=== PATIENT | female | born 1960 | race Caucasian/White ===

== ENCOUNTER 2022-10-08 11:08 | Outpatient (OUT) | payer OTHER, SELFPAY ==
[2022-10-08 11:46] LABS: Basophils Percent Auto 0.7 % (0.2-2.0); Eosinophils Absolute Auto 0.1 10^3/uL (0.0-0.7); Eosinophils Percent Auto 2.5 % (0.9-7.0); Hematocrit 44.9 % (36.0-48.0); Hemoglobin 14.6 g/dL (12.0-16.0); Immature Granulocytes Abs Auto 0.01 10^3/uL (0.00-0.03); Immature Granulocytes Pct Auto 0.2 % (0.0-0.5); Lymphocytes Absolute Auto 1.9 10^3/uL (1.2-3.8); Lymphocytes Percent Auto 33.4 % (20.5-60.0); Mean Corpuscular HGB Conc 32.5 g/dL (29.9-35.2); Mean Corpuscular Hemoglobin 28.6 pg (26.7-34.0); Mean Platelet Volume 9.8 fL (9.5-13.5); Monocytes Absolute Auto 0.4 10^3/uL (0.3-0.8); Monocytes Percent Auto 7.4 % (1.7-12.0); Neutrophils Absolute Auto 3.1 10^3/uL (1.4-6.5); Neutrophils Percent Auto 55.8 % (43.0-75.0); Platelet Count 334 10^3/uL (150-450); Red Cell Distribution Width 13.7 % (11.0-15.0); White Blood Count 5.5 10^3/uL (4.0-11.0)
[2022-10-08 11:47] LABS: Estimated Average Glucose 117 mg/dL; Glycohemoglobin A1C 5.7 % (4.5-6.2)
[2022-10-08 12:14] LABS: Alanine Aminotransferase 36 U/L (14-59); Albumin Globulin Ratio 0.9; Albumin Level 3.3 g/dL (3.4-5.0); Alkaline Phosphatase 111 U/L (46-116); Anion Gap 8.8; Aspartate Amino Transferase 19 U/L (15-37); BUN Creatinine Ratio 22.5; Bilirubin Total 0.7 mg/dL (0.2-1.0); Carbon Dioxide 31.1 mmol/L (21.0-32.0); Chloride 104 mmol/L (98-107); Estimated GFR (African America >60 (>=60); Estimated GFR (Non-African Ame >60 (>=60); Globulin 3.7 g/dL; Glucose 102 mg/dL (74-106); Potassium 3.9 mmol/L (3.5-5.1); Sodium 140 mmol/L (136-145)
[2022-10-08 12:23] LABS: Chol HDL Ratio 3.9; Cholesterol 188 mg/dL (<=200); Free Thyroxine Index 3.06 (1.30-4.50); HDL Cholesterol 48 mg/dL (40-60); LDL Cholesterol Calculated 120.6 mg/dL; Thyroid Stimulating Hormone 2.989 uIU/mL (0.358-3.740); Triglycerides 97 mg/dL (<=150); VLDL CHOLESTEROL 19.4 mg/dL
[2022-10-09 11:08] LABS: Insulin 8.6 uIU/mL (2.6-24.9)
== END 2022-10-08 11:09 ==
LOC: LAB 11:12
PROVIDERS: PCP Family Medicine; Visit Provider Family Medicine
DX: Z00.00 Encounter for general adult medical examination without abnormal findings (principal)
CPT/HCPCS: 36415; 80053; 80061; 82306; 83036; 83525; 83540; 84436; 84443; 84479; 85025

== ENCOUNTER 2022-10-17 14:32 | Outpatient (OUT) | payer OTHER, SELFPAY ==
[2022-10-17 15:03] LABS: Bilirubin Urine NEGATIVE (NEGATIVE); Blood Urine NEGATIVE (NEGATIVE); Clarity Urine CLEAR (CLEAR); Color Urine YELLOW (YELLOW); Glucose Urine UA NEGATIVE (NEGATIVE); Ketones Urine TRACE mg/dL (NEGATIVE); Leukocyte Esterase Urine NEGATIVE (NEGATIVE); Nitrite Urine NEGATIVE (NEGATIVE); Protein Urine NEGATIVE (NEG/TRACE); Specific Gravity Urine 1.025 (1.005-1.025); Urobilinogen Urine 0.2 EU/dL (0.2-1.0)
[2022-10-17 15:04] LABS: Basophils Absolute Auto 0.1 10^3/uL (0.0-0.1); Basophils Percent Auto 0.8 % (0.2-2.0); Eosinophils Absolute Auto 0.2 10^3/uL (0.0-0.7); Eosinophils Percent Auto 3.7 % (0.9-7.0); Hematocrit 45.4 % (36.0-48.0); Hemoglobin 14.7 g/dL (12.0-16.0); Immature Granulocytes Abs Auto 0.01 10^3/uL (0.00-0.03); Immature Granulocytes Pct Auto 0.2 % (0.0-0.5); Lymphocytes Absolute Auto 2.1 10^3/uL (1.2-3.8); Lymphocytes Percent Auto 33.8 % (20.5-60.0); Mean Corpuscular HGB Conc 32.4 g/dL (29.9-35.2); Mean Corpuscular Hemoglobin 28.4 pg (26.7-34.0); Mean Corpuscular Volume 87.6 fL (81.0-99.0); Mean Platelet Volume 9.8 fL (9.5-13.5); Monocytes Absolute Auto 0.6 10^3/uL (0.3-0.8); Monocytes Percent Auto 9.7 % (1.7-12.0); Neutrophils Absolute Auto 3.2 10^3/uL (1.4-6.5); Neutrophils Percent Auto 51.8 % (43.0-75.0); Platelet Count 301 10^3/uL (150-450); Red Blood Count 5.18 10^6/uL (4.20-5.40); Red Cell Distribution Width 13.4 % (11.0-15.0); White Blood Count 6.2 10^3/uL (4.0-11.0)
[2022-10-17 15:25] LABS: Alanine Aminotransferase 36 U/L (14-59); Albumin Globulin Ratio 0.9; Albumin Level 3.4 g/dL (3.4-5.0); Alkaline Phosphatase 104 U/L (46-116); Amylase 34 U/L (25-115); Aspartate Amino Transferase 23 U/L (15-37); BUN Creatinine Ratio 21.4; Bilirubin Total 0.5 mg/dL (0.2-1.0); Calcium 8.9 mg/dL (8.5-10.1); Carbon Dioxide 28.8 mmol/L (21.0-32.0); Chloride 103 mmol/L (98-107); Estimated GFR (African America >60 (>=60); Estimated GFR (Non-African Ame >60 (>=60); Glucose 88 mg/dL (74-106); Potassium 3.8 mmol/L (3.5-5.1); Sodium 138 mmol/L (136-145); Total Protein 7.4 g/dL (6.4-8.2)
[2022-10-17 16:22] LABS: Amorphous Sediment Urine RARE; Bacteria Urine TRACE #/HPF (NONE SEEN); Cast Seen? NONE SEEN #/LPF (NONE SEEN); Crystals Seen? None Seen #/HPF (None Seen); Mucus Urine NONE SEEN (NONE SEEN); RBC Urine 0-2 #/HPF (0-2); Squamous Epithelial Cell Urine RARE #/LPF (NONE/RARE); WBC Urine NONE SEEN #/HPF (NONE SEEN)
== END 2022-10-17 14:33 | disposition home or self-care (01) ==
LOC: LAB 14:33
PROVIDERS: PCP Family Medicine; Visit Provider Family Medicine
DX: R10.9 Unspecified abdominal pain (principal)
CPT/HCPCS: 36415; 80053; 81001; 82150; 83690; 85025; 87086

== ENCOUNTER 2023-06-17 20:53 | Outpatient (OUT) | payer OTHER, SELFPAY | END 2023-06-17 20:54 | disposition home or self-care (01) | LOC: SLEEP 20:53 | PROVIDERS: PCP Family Medicine; Visit Provider Family Medicine | DX: G47.33 Obstructive sleep apnea (adult) (pediatric) (principal); R06.83 Snoring | CPT/HCPCS: 95810 ==

== ENCOUNTER 2023-07-22 19:54 | Outpatient (OUT) | payer OTHER, SELFPAY ==
--- OUTSIDE RECORDS SUMMARY | 2023-07-22 19:56 | XMS_ITS | CCD ---
Author Organization [facility] Care Team Providers Care External Grinder Tender Name Role Phone PHYSICIAN, DEFAULT Unavailable Unavailable PHYSICIAN, DEFAULT Unavailable Unavailable ANEL ROBB Attending Unavailable MABEL GALVAN Referring Unavailable PRISCILLA CHACON Referring Unavail able MABEL GALVAN Primary Care Unavailable WILL TINOCO Referring Unavailabl e GALVAN, MABEL Primary Care Unavailable WILL TINOCO Referring Unavailabl e GALVAN, MABEL Primary Care Unavailable Mabel Galvan Primary Care Provider Andie Leger Unavailable DR GINNY SIMEON Consulting Unavailable HOY ., DR GROSS Primary Care Unavailable HOY ., DR GROSS Admitting Unavailable HOY ., DR GROSS Attending Unavailable ZIEBER, DR STEVENSON Babb Consulting Unavailable HOY ., DR GROSS Consulting Unavailable HOY ., DR GROSS Primary Care Unavailable HOY ., DR GROSS Admitting Unavailable HOY ., DR GROSS Attending Unavailable ZIEBER, DR STEVENSON Babb Consulting Unavailable HOY ., DR GROSS Consulting Unavailable HOY ., DR GROSS Primary Care Unavailable HOY ., DR GROSS Admitting Unavailable HOY ., DR GROSS Attending Unavailable ZIEBER, DR STEVENSON Babb Consulting Unavailable Veronica Crocker Unavailable Nidhi Croft Unavailable Allergies Allergy Classification Reported Allergen(s) Allergy Type Date of Onset Reaction(s) Facility (1 source) Penicillin; Translations: [PENICILLIN] Drug Allergy 07-25-19 18 [facility] (2 sources) Penicillins Propensity to adverse reactions to drug 12-07-19 17 Rash [place], [place] (7 sources) Sulfamethoxazole / Trimethoprim Drug Allergy 02-19-20 17 Nausea And Vomiting [facility] [place], [place] (7 sources) Penicillin G Drug Allergy 07-11-19 24 hives [place] (1 source) Penicillins Drug allergy (disorder) 10-17-19 16 [facility] Repository (2 sources) Cephalexin Drug Allergy rash Splother Other (1 source) Cephalexin Drug Allergy 07-11-19 24 rash [place] (1 source) Sulfamethoxazole Drug Allergy 07-11-19 24 nausea and vomiting [place] (1 source) Trimethoprim Drug Allergy 07-11-19 24 nausea and vomiting [place] Medications Current Medications Medication Drug Class(es) Dates Sig (Normalized) Sig (Original) [id number] 200 actuat albuterol 0.09 mg/actuat metered dose inhaler (9 sources) beta2-Adrenergic Agonist Start: 11-03-2022 take 2 puff(s) by inhalation four times daily as needed Albuterol Sulfate HFA 108 (90 Base) MCG/ACT 2 puffs Inhalation 4 times a day prn Oct, Active Start: 11-03-2022 take 2 puff(s) by in halation four times daily as needed Albuterol Sulfate HFA 108 (90 Base) MCG/ACT 2 puffs Inhalation 4 times a day prn Oct, Not-Taking Start: 07-07-2021 Start: 07-07-2021 take 2 puff(s) by in halation every four hours as needed Albuterol Sulfate HFA 108 (90 Base) MCG/ACT 2 puffs as needed Inhalation every 4 hrs Jun, Not-Taking Start: 07-07-2021 take 2 puff(s) by in halation every four hours as needed Albuterol Sulfate HFA 108 (90 Base) MCG/ACT 2 puffs as needed Inhalation every 4 hrs Jun, Not-Taking azithromycin 250 mg oral tablet (7 sources) Macrolide Antimicrobial Start: 07-11-2023 take 2 tablets by mouth once daily, then take 1 tablet by mouth once daily Azithromycin (Zithromax Z-Chan) 250 mg tablet Active 250 MG PO Daily 09 30July 11, 2023 12:00am take 2 tabs today and 1 daily for the next 4 days Start: 09-09-2022 Azithromycin 2 50 MG 2 tablet on first day, 1 tablet daily for 4 days Orally daily for 5 days Oct, Not-Taking Start: 09-09-2022 cyproheptadine hydrochloride 4 mg oral tablet (7 sources) Start: 07-11-2023 take 4 mg by mouth once daily at bedtime Cyproheptadine Active 4 MG PO Daily at bedtime July 11, 2023 12:00am Cyproheptadine H Cl Active fluticasone propionate 0.05 mg/actuat metered dose nasal spray (1 source) Corticosteroid Start: 02-03-2023 take 2 spray(s) nasal route once daily Fluticasone Propionate 50 MCG/ACT 2 sprays Nasally Once a day for 14 day(s) Jan, Active 24 hr metoprolol succinate 25 mg extended release oral tablet (8 sources) beta-Adrenergic Janice Start: 10-13-2018 take 25 mg by mouth once daily Metoprolol Succinate Active 25 MG PO Daily October 13, 2018 12:00am take 0.5 tablet by m outh once daily at mealtime Metoprolol Tartrate 25 MG 1/2 tablet wit h food Orally Once a day for 30 day(s) Active pantoprazole (7 sources) Proton Pump Inhibitor Start: 07-11-2023 Pantopra zole Active MG PO July 11, 2023 12:00am Pantoprazole Sod ium Active predniSONE 20 mg oral tablet (8 sources) Start: 09-09-2022 take 1 tablet by mouth every twelve hours predniSONE 20 MG 1 tablet Orally bid for 5 day(s) Jan, Active tiZANidine 4 mg oral tablet (8 sources) Central alpha-2 Adrenergic Agonist Start: 07-11-2023 Tizanidine Active 4 MG PO every 6 to 8 hours July 11, 2023 12:00am Start: 12-31-2018 take 1 tablet by whit th once daily tiZANidine (ZANAFLEX) 4 MG tablet Take 4 mg by mouth nightly 1 12/31/2018 Active tiZANidine HCl A ctive Completed/Discontinued Medications Medication Drug Class(es) Dates Sig (Normalized) Sig (Original) acetaminophen 325 mg / HYDROcodone bitartrate 5 mg oral tablet (1 source) Opioid Agonist Start: 10-17-2018 End: 07-11-2023 take 1 tablet by mouth every eight hours Hydrocodone-Acetam inophen ([place]) 5-325 mg tablet Discontinued 1 TAB PO Q8H 10 3 October 17, 2018 July 11, 2023 4:17pm cephalexin 500 mg oral capsule (5 sources) Cephalosporin Antibacterial Start: 11-03-2022 take 1 capsule by mouth every eight hours Cephalexin 500 MG 1 capsule Orally tid for 10 day(s) Oct, Not-Taking Start: 12-31-2018 take 2 capsules by m outh twice daily cephALEXin (KEFLEX) 500 MG capsule TAKE 2 CAPSULES BY MOUTH TWICE A DAY FOR 2 WEEKS 0 12/31/2018 Active Start: 10-17-2018 End: 07-11-2023 take 1 capsule by mouth twice daily Cephalexin (Keflex) 500 mg capsule Discontinued 500 MG PO Twice daily 10 5 October 17, 2018 12:00am July 11, 2023 4:16pm doxycycline monohydrate 100 mg oral capsule (6 sources) Tetracycline-class Drug Start: 07-07-2021 take 1 capsule by mouth every twelve hours Doxycycline Monohydrate 100 MG 1 capsule Orally every 12 hrs for 7 days Jun, Not-Taking famotidine 20 mg oral tablet (1 source) Histamine-2 Receptor Antagonist Start: 10-17-2018 End: 07-11-2023 take 1 tablet by mouth twice daily Famotidine (Pepcid) 20 mg tablet Discontinued 20 MG PO Twice daily October 17, 2018 12:00am July 11, 2023 4:16pm methylPREDNISolone 4 mg oral tablet (6 sources) Corticosteroid Start: 07-07-2021 methylPREDNISolone 4 MG as directed Orally Once a day for 6 days Jun, Not-Taking Triamcinolone (5 sources) Corticosteroid Start: 09-03-2018 KENALOG - 10 mg August, 80 mg Problems Active Problems Problem Classification Problem Date Documented Da te Episodic/Chronic Abdominal pain (6 sources) Abdominal pain; Translations: [Unspecified abdominal pain] Episodic Chronic obstructive pulmonary disease and bronchiectasis (3 sources) Bronchitis, not specified as acute or chronic Onset: 07-07-2021 Resolved: 07-07-2021 Episodic Headache; including migraine (6 sources) New daily persistent headache; Translations: [New daily persistent headache (NDPH)] Chronic Headache; including migraine (1 source) Headache; Translations: [Headache] 04-09-2023 Episodic Menstrual disorders (1 source) Irregular periods; Translations: [Irregular uterine bleeding] Chronic Other aftercare (1 source) Wound ; Translations: [Encounter for other specified surgical aftercare] 04-09-2023 Episodic Other and unspecified benign neoplasm (1 source) Leiomyoma; Translations: [Benign neoplasm of connective and other soft tissue, unspecified] 07-11-2023 Episodic Other circulatory disease (7 sources) Vasculitis; Translations: [Arteritis, unspecified] 07-11-2023 Chronic Other gastrointestinal disorders (6 sources) Swollen abdomen; Translations: [Abdominal distension (gaseous)] Episodic Other nutritional; endocrine; and metabolic disorders (6 sources) Obese class II; Translations: [Body mass index (BMI) 39.0-39.9, adult] Chronic Other nutritional; endocrine; and metabolic disorders (6 sources) Obesity; Translations: [Obesity, unspecified] Chronic Other nutritional; endocrine; and metabolic disorders (1 source) Body mass index 30+ - obesity; Translations: [Obesity, unspecified] 07-11-2023 Chronic Other nutritional; endocrine; and metabolic disorders (6 sources) Weight gain; Translations: [Abnormal weight gain] Episodic Other screening for suspected conditions (not mental disorders or infectious disease) (4 sources) Encounter for screening mammogram for malignant neoplasm of breast; Translations: [ENC SCR MAMMO MALIG NEOPLASM BREAST] Onset: 07-16-2022 Episodic Other upper respiratory infections (1 source) Acute sinusitis, unspecified Episodic Otitis media and related conditions (5 sources) Otitis media, unspecified, right ear; Translations: [Unspecified nonsuppurative otitis media, right ear] Onset: 07-07-2021 Resolved: 07-07-2021 Episodic Residual codes; unclassified (1 source) Family history of malignant neoplasm of breast; Translations: [FAMILY HX MALIG NEOPLASM OF BREAST] Onset: 07-20-2022 Episodic Residual codes; unclassified (1 source) Family history of other malignant neoplasms of lymphoid, hematopoietic and related tissues; Translations: [FAM HX OTH MAL ARACELIS LYMPH HEMATPOETC] Onset: 07-20-2022 Episodic Residual codes; unclassified (1 source) Family history of malignant neoplasm of other organs or systems; Translations: [FAM HX MALIG NEOPLASM OTH ORGN/SYS] Onset: 07-20-2022 Episodic Spondylosis; intervertebral disc disorders; other back problems (1 source) Degeneration of intervertebral disc; Translations: [Degeneration of intervertebral disc] 07-11-2023 Chronic Spondylosis; intervertebral disc disorders; other back problems (4 sources) Radiculopathy, lumbar region; Translations: [RADICULOPATHY LUMBAR REGION] Onset: 07-19-2022 Episodic Systemic lupus erythematosus and connective tissue disorders (7 sources) Temporal arteritis; Translations: [Other giant cell arteritis] 07-11-2023 Chronic Thyroid disorders (7 sources) Subclinical hyperthyroidism; Translations: [Thyrotoxicosis, unspecified without thyrotoxic crisis or storm] 07-11-2023 Chronic Past or Other Problems Problem Classification Problem Date Documented Da te Episodic/Chronic 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; 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 TECHNIQUE: A variety of imaging planes and parameters were utilized for visualization of suspected pathology. FINDINGS: For the purposes of numbering, sagittal T2 image # 8 extends from the T11 vertebral body superiorly to the S3 level inferiorly. PARASPINAL AREA: Benign-appearing right renal cyst. Left kidney is within the pelvis. BONES: No fracture, pars defect, or osseous lesion. CORD/CAUDA EQUINA: Normal caliber, contour, and signal intensity. DISC LEVELS: 12-L1: No significant disc/facet abnormality, spinal stenosis, or foraminal stenosis. L1-L2: No significant disc/facet abnormality, spinal stenosis, or foraminal stenosis. L2-L3: Early degenerative disc disease is present without focal protrusion or neural impingement. L3-L4: Moderate degenerative disc disease is present without visible neural impingement. L4-L5: Mild diffuse disc bulging and mild disc height reduction. No significant central canal or foramen narrowing. Mild degenerative facet arthropathy and ligamentum flavum thickening. L5-S1: Mild left foramen narrowing without significant central canal or right foramen narrowing. Mild diffuse disc bulging and mild degenerative facet arthropathy. IMPRESSION: 1. No specific findings to account for patient's symptoms. 2. L5-S1 mild left foramen narrowing. 2. Mild degenerative disc disease and facet arthropathy. Electronically authenticated by: STEVENSON WATSON Date: 2022-07-19 15:01 Normal [facility] MG MAMM SCREEN 3D JUAN CADon 07-16-2022 MG MAMM SCREEN 3D JUAN CAD Patient: MONET MONTANEZ Exam Date: 07/16/2022 : 1960 Gender:F Ordering : DR GINNY BARNETT . Admission #: [id number] Family : Order #: [id number] CLICK HERE TO VIEW EXAM RADIOLOGY REPORT PROCEDURE: MAMMOGRAM SCREENING 3D BILATERAL CAD COMPARISON: MG MAMM SCREEN 3D JUAN CAD, 12/25/2020. MG MAMM SCREEN JUAN W CAD, 03/23/2019. MG MAMM SCREEN JUAN W CAD, 12/17/2016. DIGITIZED_MAMMO, 11/03/2002. INDICATIONS: Screening mammography Calculator Name NCI Breast Cancer Risk Assessment Tool 5 Year Breast Cancer Risk 0.90% Lifetime Breast Cancer Risk 4.90% Personal Breast Cancer No Personal Ovarian Cancer No Treatments None Family Cancers Aunt-paternal with breast cancer at age 40; Aunt-paternal with breast cancer at age 40; Father with sinus cancer at age 70; Mother with lymohoma cancer at age 58. LOCATION: [facility] BREAST COMPOSITION: Scattered areas fibroglandular density. FINDINGS: DIAGNOSTIC CATEGORY 2--BENIGN FINDING: RIGHT BREAST: No significant suspicious finding. Scattered benign-appearing lymph nodes are present. No significant change has occurred. LEFT BREAST: No significant suspicious finding. Scattered benign-appearing lymph nodes are present. No significant change has occurred. RECOMMENDATIONS: ROUTINE MAMMOGRAM AND CLINICAL EVALUATION IN 12 MONTHS. PLEASE NOTE: A NORMAL MAMMOGRAM DOES NOT EXCLUDE THE POSSIBILITY OF BREAST CANCER. A CLINICALLY SUSPICIOUS PALPABLE LUMP SHOULD BE BIOPSIED. Dictated by: Stevenson Watson M.D. on 07/16/2022 at 16:12 Approved by: Stevenson Watson M.D. on 07/16/2022 at 16:18 Normal [facility] XR LSPINE MIN 4 VIEWSon 03-0 XR LSPINE MIN 4 VIEWS EXAMINATION: XR LSPINE MIN 4 VIEWS HISTORY: Lumbar radiculopathy ; chronic low back pain COMPARISON: XR L-spine 07/09/2016 FINDINGS: BONES: Mild left convex curvature lumbar spine. No fracture, spondylolisthesis, bone lesion. Mild degenerative facet arthropathy L4-L5, L5-S1. DISC SPACES: Moderate narrowing L4-L5, L5-S1. Mild narrowing L3-L4. PARASPINOUS: Negative. No paraspinous abnormality is seen. OTHER: Negative. IMPRESSION: 1. Degenerative disc disease and facet arthropathy of lower lumbar spine; only slightly progressed compared to 2017. Electronically authenticated by: STEVENSON WATSON Date: 2022-07-03 16:36 Normal [facility] Quick Fluon 08-06-2021 FLUAV Ab CF (S) [Titer] Negative Splother Other FLUBV Ab CF (S) [Titer] neagtive [facility] [employer] Other Coding Summary.on 06-23-2019 Coding Summary. CODING DATE: 06/23/2019 [facility] STATUS: Home (Routine DC) PAYOR: [facility] [place] ADMIT DX: REASON FOR VISIT DX: Z09 Encounter for follow-up examination after completed treatment for conditions other than malignant neoplasm FINAL DX: PRINCIPAL: Z09 Encounter for follow-up examination after completed treatment for conditions other than malignant neoplasm SECONDARY: M54.2 Cervicalgia G43.909 Migraine, unspecified, not intractable, without status migrainosus Z79.899 Other terminal make up operator (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 However, the narrative phrase printed from the coding software may appear abbreviated, or result in slightly different terminology. Coded By: Moraima Jessica CphT Date Saved: 06/23/2019 10:03 am Normal [facility] Consultation Noteon 06-22-19 Consultation Note Patient: MONET MONTANEZ Age: 58 years Sex: Female : 1960 Associated Diagnoses: None Author: Jane Marie PA-C Basic Information Accompanied by: No one. Source of history: Self. History limitation: None. Chief Complaint 06/22/2019 14:46 EST neck History of Present Illness Patient is a 58-year-old female who presents today with complaints of neck pain and migraines. She states that she has seen a neurosurgeon, multiple neurologist, and ENT, and a multitude of other doctors all 4 headaches and neck pain. She rates the discomfort a 6?8/10. She also has pain on the left arm, left side of her head, and behind her eyes. She states that she has been told multiple times with the headaches are not coming from her neck but she knows that they do. She states that traction makes it worse. Medications have not helped. Treatments with neurology have not helped. She is very bothered by this but states that she has figured out what to do in life to make it better. She just wanted to make sure that nothing is wrong with her neck. She had a recent injury where her closed the trunk lid on her head. Review of Systems Constitutional: No fever, No chills. Eye: No recent visual problem. Respiratory: No shortness of breath, No cough. Gastrointestinal: No nausea, No vomiting. Genitourinary: No dysuria, No hematuria. Musculoskeletal: Neck pain. Integumentary: No rash, No pruritus. Neurologic: Alert and oriented X4, Headache, No abnormal balance. Psychiatric: No anxiety, No depression. Health Status Allergies: Allergic Reactions (Selected) Severity Not Documented Penicillin- Hives. Current medications: Home Medications (2) Active metoprolol 25 mg ER Tab See Instructions tizanidine 4 mg, Oral, Bedtime , No qualifying data available Problem list: All Problems HTN (hypertension) / SNOMED CT 1689834210 / Confirmed Migraine headache / SNOMED CT 69076048 / Confirmed Pelvic kidney / SNOMED CT 29837544 / Confirmed Histories Past Medical History: No active or resolved past medical history items have been selected or recorded. Family History: No family history items have been selected or recorded. Procedure history: Cholecystectomy (SNOMED CT 05559674). Comments: 06/22/2019 14:50 EST - Day Anel MEDINA 1994 Dr Morgan @[place] Tubal ligation (SNOMED CT 079442893). Comments: 06/22/2019 14:51 EST - Day Anel MEDINA 1993 [place] Temporal artery biopsy (SNOMED CT 1092703086). Comments: 06/22/2019 14:51 EST - Day Anel MEDINA 2018 Dr Magaña Social History Social & Psychosocial Habits Tobacco 06/22/2019 Risk Assessment: No Risk . Physical Examination Vital Signs (last 24 hrs) Last Charted Heart Rate Peripheral 80 bpm (JUN 22 14:46) Resp Rate 18 br/min (JUN 22 14:46) SBP 122 mmHg (JUN 22 14:46) DBP H 96mmHg (JUN 22 14:46) Height 168 cm (JUN 22 14:46) General: Alert and oriented. Eye: Pupils are equal, round and reactive to light. HENT: Normocephalic. Neck: Supple. Respiratory: Respirations are non-labored. Cardiovascular: No edema. Musculoskeletal Normal range of motion. Normal strength. Neurologic: Alert, Oriented, Normal deep tendon reflexes. Cognition and Speech: Oriented, Speech clear and coherent. Psychiatric: Cooperative, Appropriate mood & affect. Integumentary: Warm, Dry. Review / Management Results review: No qualifying data available . Cervical MRI scan. 02/25/2018. Degenerative disc disease. Spondylosis. Facet arthropathy most at C5-6. No significant central stenosis or foraminal stenosis Impression and Plan Patient is a 58-year-old female with a past medical history significant for neck pain and headaches. She has been on a multitude of medications and other treatments without any improvement. Previous injection therapy did not help. The only thing that has helped slightly is muscle relaxers. She is going to continue on this. We discussed other options including but not limited to acupuncture, massage therapy, and a possible rheumatology referral. At this time she does not want to do anything else. She is going to call us should she need anything. She just wanted to have this appointment today to have us review the cervical MRI and assure her that nothing is wrong with her neck or spinal cord. We had a long discussion on her MRI. We had long discussion with the spinal cord. Her headaches are not related to her spinal cord. She will follow-up with our office on a as needed basis. Normal [facility] Comment on above: Result Comment: Elec tronically Signed By: Jane Marie PA-C\.br\Date and Time Signed: 06/22/19 15:45 EST\.br\Electronically Co-Signed By: Avery BHAKTA, Willis Ann\.br\Date and Time Co-Signed: 06/23/19 00:38 EST Follicle Stim. Hormon 2018 Follicle Stim. Horm 33.4 U/L Normal 25.8-134.8 [facility] Comment on above: Result Comment: Refe rence Range: Male: 1.5-12.4 Ovulating Female: Follicular Phase 3.5-12.5 Ovulation Phase 4.7-21.5 Luteal Phase 1.7-7.7 Postmenopausal Female: 25.8-134.8 Performed By: #### F SH #### [employer] [address] [place] [address] Barrel Drainer: Ky Estrada MD Follicle Stimulating Hormone on 01-05-2019 FSH 33.4 U/L 25.8 - 134.8 U/L [place], [place] Comment on above: Reference Range: Male: 1.5-12.4 Ovulating Female: Follicular Phase 3.5-12.5 Ovulation Phase 4.7-21.5 Luteal Phase 1.7-7.7 Postmenopausal Female: 25.8-134.8 US PELVIS COMPLETEon 019 US PELVIS COMPLETE EXAMINATION: Ultrasound pelvis complete 10/06/2018 TECHNIQUE: Transabdominal and transvaginal pelvic ultrasound was performed. 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 No focal uterine lesion identified. Endometrial stripe: The endometrial stripe is uniform in contour but measures up to 8 mm which is thickened in a postmenopausal patient. The ovaries were not sonographically identified. Free Fluid: No evidence of free fluid. IMPRESSION: Endometrial thickening measuring up to 8 mm in a postmenopausal patient. Endometrial biopsy would be recommended as clinically indicated. Interpreted by: Jean Pierre Zamarripa MD Signed by: Jean Pierre Zamarripa MD 10/06/18 Final result Normal [facility] Cytologyon 09-30-2018 Cytology (NOTE) [id number] [facility] ANATOMIC PATHOLOG[facility] [address] [place] [address]. [place], [place] [address] GYNECOLOGIC CYTOLOGY REPORT Patient Name: MONET MONTANEZ MR#: [id number] Specimen #[id number] Source: 1: Cervical material, (ThinPrep vial, Imaging-assisted review) Clinical History N95.0 Postmenopausal bleeding High Risk HPV DNA testing is requested if the diagnosis is ASC-US LMP: 09/14/18 INTERPRETATION Cervical material, (ThinPrep vial, Imaging-assisted review): Specimen Adequacy: Satisfactory for evaluation. - Endocervical/transfor mation zone component present. Descriptive Diagnosis: Negative for intraepithelial lesion or malignancy. Insurance Risk Manager: SERGIO Boland(ASCP) Electronically Signed Out bill/10/06/2018 [facility] Comment on above: Performed By: #### P PPVP #### [address] [address] Barrel Drainer: MD George Lopez 08-19-2018 [facility] Letter Text [facility] CNOVon 08-19-2018 CNOV Office Visit (JUANITO ) MONET MONTANEZ ([id number]) 1960 F Date Time Provider Department 08/19/18 11:00 AM ANEL ROBB During your visit today, we recorded the following information about you: Pulse Blood pressure Weight Height 83/minute 140/93 108.4 kg 1.676 m Anel Robb MD 08/19/2018 12:22 PM Signed Mabel Galvan MD (DrC) [address] [facility] [address] PCP: Mabel Galvan MD Accompanied by: Self CC: Headache HPI: Monet Montanez is a 57 year old year old, right-handed, woman who is referred in consultation by Dr. Mabel Galvan MD for an opinion regarding headache and my final recommendations will be communicated back to the requesting physician by way of shared Medical record or letter via US mail. She has significant medical history including:neck and back pain. Previous records (physician notes, laboratory reports, and radiology reports) and imaging studies were reviewed and summarized. No prior headache history. October, her headache began and it not gone away.l Beginning Jun, 2018 had 2 wks w only pressure pain, no intense WALLER , but it returned after that 2 wk period. The WALLER is is L side locked. . 5 days/wk iit is moderate to severe and on other days she still has pressure.Pain is described as throbbing and shooting. Has an unususal sensation L eye. Headache us otherwise it is featureless. She was tired on indomethacin 25 mg tid wo benefir. Never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
== END 2023-07-22 19:55 | disposition home or self-care (01) ==
LOC: SLEEP 19:54
PROVIDERS: PCP Family Medicine; Visit Provider Family Medicine
DX: G47.33 Obstructive sleep apnea (adult) (pediatric) (principal)
CPT/HCPCS: 95811

== ENCOUNTER 2023-10-14 11:24 | Outpatient (OUT) | payer OTHER, SELFPAY ==
--- NOTE | 2023-10-14 11:29 | MM_ITS ---
Patient Name: ERNA MONTANEZ MR#: [id number] : 1960 Exam Date: 10/14/2023 Ordering Doctor: DR Akil Trammell . RADIOLOGY REPORT PROCEDURE: MM TOMOSYNTHESIS SCREENING BI COMPARISON: MG MAMM SCREEN 3D JUAN CAD, 07/16/2022. MG MAMM SCREEN 3D JUAN CAD, 12/25/2020. MG MAMM SCREEN JUAN W CAD, 03/23/2019. MG MAMM JUAN SCRN W CAD DIG, 12/01/2012. INDICATIONS: Screening Calculator Name NCI Breast Cancer Risk Assessment Tool 5 Year Breast Cancer Risk 1.00% Lifetime Breast Cancer Risk 4.60% Personal Breast Cancer No Personal Ovarian Cancer No Treatments None Family Cancers Aunt-paternal with breast cancer at age 40; Aunt-paternal with breast cancer at age 40; Father with sinus cancer at age 70; Mother with lymohoma cancer at age 58. LOCATION: [facility] BREAST COMPOSITION: There are scattered areas of fibroglandular density. FINDINGS: DIAGNOSTIC CATEGORY 2--BENIGN FINDING: RIGHT BREAST: No significant suspicious finding. Scattered benign-appearing lymph nodes are present. No significant change has occurred. LEFT BREAST: No significant suspicious finding. Scattered benign-appearing lymph nodes are present. No significant change has occurred. RECOMMENDATIONS: ROUTINE MAMMOGRAM AND CLINICAL EVALUATION IN 12 MONTHS. PLEASE NOTE: A NORMAL MAMMOGRAM DOES NOT EXCLUDE THE POSSIBILITY OF BREAST CANCER. A CLINICALLY SUSPICIOUS PALPABLE LUMP SHOULD BE BIOPSIED. Dictated by: Stevenson Watson M.D. on 10/16/2023 at 08:44 Approved by: Stevenson Watson M.D. on 10/16/2023 at 08:44
== END 2023-10-14 11:25 | disposition home or self-care (01) ==
LOC: MAMMO 11:24
PROVIDERS: PCP Family Medicine; Visit Provider Family Medicine
DX: Z12.31 Encounter for screening mammogram for malignant neoplasm of breast (principal); Z80.3 Family history of malignant neoplasm of breast; Z80.7 Family history of other malignant neoplasms of lymphoid, hematopoietic and related tissues; Z80.8 Family history of malignant neoplasm of other organs or systems
CPT/HCPCS: 77063; 77067

== ENCOUNTER 2023-11-28 12:50 | Emergency (ER) | payer OTHER, SELFPAY ==
[2023-11-28] VITALS (40 sets, daily range): BP systolic 63–158; BP diastolic 39–106; PULSE 37–101; TEMP 36.9–37.2; O2SAT 88–97; BMI 38.7
--- OUTSIDE RECORDS SUMMARY | 2023-11-28 13:13 | XMS_ITS | CCD ---
Author Organization [facility] CliniSynv Care Team Providers Care Plastic Frame Inserter Name Role Phone PHYSICIAN, DEFAULT Unavailable Unavailable PHYSICIAN, DEFAULT Unavailable Unavailable ANEL ROBB Attending Unavailable MABEL GALVAN Referring Unavailable PRISCILLA CHACON Referring Unavail able COLE, MABEL Primary Care Unavailable WILL TINOCO Referring Unavailkahlil e COLE, MABEL Primary Care Unavailable WILL TINOCO Referring Unavailabl e COLE, MABEL Primary Care Unavailable Mabel Galvan Primary Care Provider Andie Leger Unavailable ERICKA Phillips, DR GROSS Consulting Unavailable HOY ., DR [...] Unavailable Veronica Crocker Unavailable Nidhi Croft Unavailable CARLINE KING Attending Unavailable Allergies Allergy Classification Reported Allergen(s) Allergy Type Date of Onset Reaction(s) Facility (1 source) Penicillin; Translations: [PENICILLIN] Drug Allergy 07-25-19 18 [facility] Repository (2 sources) Penicillins Propensity to adverse reactions to drug 12-07-19 17 Rash [place], [place] (7 sources) Sulfamethoxazole / Trimethoprim Drug Allergy 02-19-20 17 Nausea And Vomiting [place], [place] (7 sources) Penicillin G Drug Allergy 07-11-19 24 hives [facility] (1 source) Penicillins Drug allergy (disorder) 10-17-[address] [facility] (2 sources) Cephalexin Drug Allergy rash [facility] Other (1 source) Cephalexin Drug Allergy 07-11-19 24 rash [facility] (1 source) Sulfamethoxazole Drug Allergy 07-11-19 24 nausea and vomiting [facility] (1 source) Trimethoprim Drug Allergy 07-11-19 24 nausea and vomiting [facility] Medications Current Medications Medication Drug Class(es) Dates Sig (Normalized) Sig (Original) [id number] 200 actuat albuterol 0.09 mg/actuat metered dose [...] daily for the next 4 days Start: 05-15-2023 Azithromycin 2 50 MG 2 tablet on [...] (1 source) Opioid Agonist Start: 10-17-2018 End: 03-15-2024 take 1 tablet by mouth every eight hours Hydrocodone-Acetam inophen ([place]) 5-325 mg tablet Discontinued 1 TAB PO [...] STEVENSON WATSON Date: 2022-07-19 15:01 Normal [facility] MG MAMM SCREEN 3D JUAN CADon 07-16-2022 MG MAMM SCREEN 3D JUAN CAD Patient: MONET MONTANEZ Exam Date: 07/16/2022 : 1960 Gender:F Ordering : DR GINNY BARNETT . Admission #: [id number] Family : Order #: [id number] CLICK HERE TO VIEW EXAM RADIOLOGY REPORT [...] lymohoma cancer at age 59. LOCATION: [facility] BREAST COMPOSITION: Scattered areas fibroglandular density. FINDINGS: [...] Watson M.D. on 07/16/2022 at 16:18 Normal [facility] XR LSPINE MIN 4 VIEWSon 03-0 XR [...] by: STEVENSON WATSON Date: 2022-07-03 16:36 Normal [facility] Quick Fluon 08-06-2021 FLUAV Ab CF (S) [Titer] Negative [facility] Other FLUBV Ab CF (S) [Titer] [facility] Other Coding Summary.on 06-23-2019 Coding Summary. CODING DATE: 06/23/2019 [facility] STATUS: Home (Routine DC) PAYOR: Medical [place] ADMIT DX: REASON FOR VISIT DX: Z09 Encounter for follow-up examination after completed treatment for conditions other than malignant neoplasm FINAL DX: PRINCIPAL: Z09 Encounter for follow-up examination after completed treatment for conditions other than malignant neoplasm SECONDARY: M54.2 Cervicalgia G43.909 Migraine, unspecified, not intractable, without status migrainosus Z79.899 Other intermediate (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 However, the narrative phrase printed from the coding software may appear abbreviated, or result in slightly different terminology. Coded By: Moraima Jessica CphT Date Saved: 06/23/2019 10:03 am Normal [facility] Consultation Noteon 06-22-19 Consultation Note Patient: MONET [...] All Problems HTN (hypertension) / SNOMED CT 2163805215 / Confirmed Migraine headache / SNOMED CT 77610439 / Confirmed Pelvic kidney / SNOMED CT 59715695 / Confirmed Histories Past Medical History: No active or resolved past medical history items have been selected or recorded. Family History: No family history items have been selected or recorded. Procedure history: Cholecystectomy (SNOMED CT 75558225). Comments: 06/22/2019 14:50 EST - Day Anel MEDINA [address] Dr Morgan @[place] Tubal ligation (SNOMED CT 623313468). Comments: 06/22/2019 14:51 EST - Day Anel MEDINA 1993 [place] Temporal artery biopsy (SNOMED CT 8120644538). Comments: 06/22/2019 14:51 EST - Day Anel [...] office on a as needed basis. Normal [facility] Comment on above: Result Comment: Elec tronically Signed By: Cynthia VALDEZ, Jane\.br\Date and Time Signed: 06/22/19 15:45 EST\.br\Electronically Co-Signed By: Avery BHAKTA, Willis Ann\.br\Date and Time Co-Signed: 06/23/19 00:38 EST Follicle Stim. Hormon 2018 Follicle Stim. Horm 33.4 U/L Normal 25.8-134.8 [facility] Comment on above: Result Comment: Refe rence Range: Male: 1.5-12.4 Ovulating Female: Follicular Phase 3.5-12.5 Ovulation Phase 4.7-21.5 Luteal Phase 1.7-7.7 Postmenopausal Female: 25.8-134.8 Performed By: #### F SH #### [facility] [address] [place] [address] Museum Technician: Ky Estrada MD Follicle Stimulating Hormone on 01-05-2019 FSH 33.4 U/L 25.8 - 134.8 U/L [place], [place] Comment on above: Reference Range: Male: 1.5-12.4 Ovulating Female: Follicular Phase 3.5-12.5 Ovulation Phase 4.7-21.5 Luteal Phase 1.7-7.7 Postmenopausal Female: 25.8-134.8 US PELVIS COMPLETEon 019 US PELVIS COMPLETE EXAMINATION: Ultrasound pelvis complete 10/06/2018 TECHNIQUE: Transabdominal and transvaginal pelvic ultrasound was performed. COMPARISON: CT abdomen and pelvis May 01, 2017 HISTORY: Postmenopausal bleeding Business And Marketing Teacher indicates irregular postmenopausal bleeding FINDINGS: Measurements: Uterus: [...] Pierre Zamarripa MD 10/06/18 Final result Normal [facility] Cytologyon 09-30-2018 Cytology (NOTE) [id number] [facility] ANATOMIC PATHOLOGY [address] [place], [place] [address] GYNECOLOGIC CYTOLOGY REPORT Patient Name: MONET MONTANEZ MR#: [id number] Specimen #[id number] Source: 1: Cervical material, (ThinPrep vial, Imaging-assisted review) Clinical History N95.0 Postmenopausal bleeding High Risk HPV DNA testing is requested if the diagnosis is ASC-US LMP: 09/14/18 INTERPRETATION Cervical material, (ThinPrep vial, Imaging-assisted review): Specimen Adequacy: Satisfactory for evaluation. - Endocervical/transfor mation zone component present. Descriptive Diagnosis: Negative for intraepithelial lesion or malignancy. Sales And Support Center Agent: SERGIO Boland(ASCP) Electronically Signed Out /10/06/2018 [facility] Comment on above: Performed By: #### P PPVP #### [facility] [address] [address] Museum Technician: MD George Lopez 08-19-2018 CNCO Letter Text [facility] CNOVon 08-19-2018 CNOV Office Visit (JUANITO ) MONET MONTANEZ ([id number]) 1960 F Date Time Provider Department 08/19/18 11:00 AM ANEL ROBB During your visit today, we recorded the following information about you: Pulse Blood pressure Weight Height 83/minute 140/93 108.4 kg 1.676 m Anel Robb MD 08/19/2018 12:22 PM Signed Mabel Galvan MD (C) [address] [facility] [address] PCP: Mabel Galvan MD Accompanied by: Self [...] and MRI neck.- reviewd and uploaded to [facility] Records reviewed: yes Family History: FAMILY HISTORY [...] in rate, volume and articulation. Short and intermediate memory, cognition and general fund of knowledge [...] it is Hemicrania Continua, but it may returned goods receiving clerk to be NDPH with the remembered onset. IHS diagnosis based on current history and exam: (G44.51) Hemicrania continua (primary encounter diagnosis) Plan: Discussed all options for treatment. Please obtain generic omeprazole (20 mg) [Rover.com, AppGyver, Tears for Lifes Club, etc] and start one daily. You [...] pain, and counseling about diet, medications, and intermediate implications. The patient has my contact information and my chart sign up information. MD Anel Wong MD 08/19/2018 11:44 AM Signed Week 1: -Please obtain generic omeprazole (20 mg) [[employer]over.com, App[employer]ver, Meedor Club, etc] and start one daily. You [...] ensuing treatment plans will be released via Deskarma and discussed during your follow-up appointment. Follow-up appointments are primarily provided by the Nurse Practioners and Physician?s Assistants in order to provide timely, accessible care. MyChart: Please ask the schedulers to give you an activation code. The main way of communication is by [employer] rather than phone lines, so if you have not signed up, please do so. 1o1Mediat is also the way that you can review your labs and testing. We are not able to contact everyone to tell them results are normal. If you do not hear back from us regarding testing you have had, it should be considered normal or within normal range. If you have any questions about the results, you are free to message us. ? 1o1Mediat is meant for simple questions regarding medications, possible side effects, or other simple straight forward questions in limited sentences, rather than multiple paragraphs of discussion. Deskarma is not meant for, or efficient for [...] WEBCAM CONNECTED: 1. Go to the URL: [email or web address] 2. Click on Sign Up and Create a patient account for yourself. 3. Please also follow the links to ?Test My Computer?. 4. Follow the steps suggested, testing your Internet Speed, Webcam, Microphone, Speaker, and your video software. 5. Please make sure your video software is up-to-date. This is a safe, [facility] [place] approved download, and will not harm your computer. ? ON AN IPHONE, IPAD, OR ANDROID DEVICE: 1. Open up the Sylvester Store or Google Pleitore and search [facility] [employer] Online. 2. Download and Install the Application. 3. Tap on Sign Up and create a patient account for yourself. 4. Please use an e-mail address that you frequently check, as you will receive an e-mail appointment from [facility] [place] [employer] Online. ? Find our user guide, here: [email or web address] ? Important: Don?t forget your password you [...] connected to the provider. ? Please call [phone] prior to your visit if you have [...] your PCP/referring physician. Referring Provider: MABEL GALVAN [[id number]] Allergies As of Date: 08/19/2018 Noted Allergy [...] 1: -Please obtain generic omeprazole (20 mg) [Rover.com, AppGyver, Tears for Lifes Club, etc] and start one daily. You [...] ensuing treatment plans will be released via Deskarma and discussed during your follow-up appointment. Follow-up appointments are primarily provided by the Nurse Practioners and Physician?s Assistants in order to provide timely, accessible care. [employer]: Please ask the schedulers to give you an activation code. The main way of communication is by [employer] rather than phone lines, so if you have not signed up, please do so. 1o1Mediat is also the way that you can review your labs and testing. We are not able to contact everyone to tell them results are normal. If you do not hear back from us regarding testing you have had, it should be considered normal or within normal range. If you have any questions about the results, you are free to message us. ? 1o1Mediat is meant for simple questions regarding medications, possible side effects, or other simple straight forward questions in limited sentences, rather than multiple paragraphs of discussion. Deskarma is not meant for, or efficient for [...] WEBCAM CONNECTED: 1. Go to the URL: [facility] [email or web address] 2. Click on Sign Up and Create a patient account for yourself. 3. Please also follow the links to ?Test My Computer?. 4. Follow the steps suggested, testing your Internet Speed, Webcam, Microphone, Speaker, and your video software. 5. Please make sure your video software is up-to-date. This is a safe, [facility] [place] approved download, and will not harm your computer. ? ON AN IPHONE, IPAD, OR ANDROID DEVICE: 1. Open up the Sylvester Store or Vune Lab and search [facility] [place] [employer] Online. 2. Download and Install the Application. 3. Tap on Sign Up and create a patient account for yourself. 4. Please use an e-mail address that you frequently check, as you will receive an e-mail appointment from [facility] [place] [employer] Online. ? Find our user guide, here: [email or web address] ? Important: Don?t forget your password you [...] connected to the provider. ? Please call [phone] prior to your visit if you have [...] by ANEL ROBB MD on 08/19/18 Normal [facility] HISTORY PHYSICALon HISTORY PHYSICAL HNO ID: [id number] Author: Anel Robb Service: ? Author Type: Physician Type: HANDP Filed: 08/19/2018 12:22 PM Note Text: Mabel Glavan MD ([facility]) [address] [facility] [address] PCP: Mabel Galvan MD Accompanied by: Self [...] and MRI neck.- reviewd and uploaded to [facility] Records reviewed: yes Family History: FAMILY HISTORY [...] in rate, volume and articulation. Short and intermediate memory, cognition and general fund of knowledge [...] it is Hemicrania Continua, but it may returned goods receiving clerk to be NDPH with the remembered onset. IHS diagnosis based on current history and exam: (G44.51) Hemicrania continua (primary encounter diagnosis) Plan: Discussed all options for treatment. Please obtain generic omeprazole (20 mg) [[employer], Ixtens's, Abad's Club, etc] and start one daily. [...] pain, and counseling about diet, medications, and long chain beamer implications. The patient has my contact information and my chart sign up information. Anel Robb MD [facility] MR-MR angio head wo con IMPO RTon 05-25-2018 MR-MR angio head wo con IMPORT Images were obtained outside of [facility] [id number] N [facility] FL-MRI BRAIN WO CON IMPORTon 02-25-2018 [place]-MRI BRAIN WO CON IMPORT Images were obtained outside of [facility] [id number] N [facility] [place]-[facility] C-SPINE WO CON IMPORT on 02-25-2018 [place]-MRI C-SPINE WO CON IMPORT Images were obtained outside of [facility] [id number] N Normal [facility] Vital Signs Date Time Vital Sign Value Performing Clinician Facility 07-11-2023 16:24-0400 Body height 2011.68 cm [facility] 07-11-2023 16:24-0400 Body mass index (BMI) [Ratio] 0.3 kg/m2 [facility] 07-11-2023 16:24-0400 Body temperature 98.5 [degF] [facility] 07-11-2023 16:24-0400 Body weight 114.3 kg [facility] 07-11-2023 16:24-0400 Diastolic blood pressure 85 mm[Hg] [facility] 07-11-2023 16:24-0400 Heart rate 83 /min [facility] 07-11-2023 16:24-0400 Respiratory rate 18 /min [facility] 07-11-2023 16:24-0400 SaO2% (BldA) [Mass fraction] 95 % [facility] 07-11-2023 16:24-0400 Systolic blood pressure 148 mm[Hg] [facility] 02-03-2023 12:20-0400 Body height 167.64 cm Veronica Crocker Other [facility] Other 02-03-2023 12:20-0400 Body mass index (BMI) [Ratio] 40.31 kg/m2 Veronica Crocker Other [facility] Other 02-03-2023 12:20-0400 Body temperature 99.4 [degF] Veronica Crocker Other [facility] Other 02-03-2023 12:20-0400 Body weight 113.31 kg Veronica Crocker Other [facility] Other 02-03-2023 12:20-0400 Diastolic blood pressure 88 mm[Hg] Veronica Lizzette Other [facility] Other 02-03-2023 12:20-0400 Respiratory rate 18 /min Veronica Lizzette Other [facility] Other 02-03-2023 12:20-0400 SaO2% (BldA) [Mass fraction] 96 % Veronica Lizzette Other [facility] Other 02-03-2023 12:20-0400 Systolic blood pressure 128 mm[Hg] Veronica Lizzette Other [facility] Other 11-03-2022 12:35-0400 Body height 167.64 cm Veronica Lizzette Other [facility] Other 11-03-2022 12:35-0400 Body mass index (BMI) [Ratio] 40.51 kg/m2 Veronica Lizzette Other [facility] Other 11-03-2022 12:35-0400 Body temperature 97.9 [degF] Veronica Lizzette Other [facility] Other 11-03-2022 12:35-0400 Body weight 113.85 kg Veronica Lizzette Other [facility] Other 11-03-2022 12:35-0400 Respiratory rate 18 /min Veronica Lizzette Other [facility] Other 11-03-2022 12:35-0400 SaO2% (BldA) [Mass fraction] 97 % Veronica Lizzette Other [facility] Other 09-09-2022 13:45-0400 Body height 167.64 cm Veronica Crocker Other [facility] Other 09-09-2022 13:45-0400 Body mass index (BMI) [Ratio] 40.51 kg/m2 Veronica Crocker Other [facility] Other 09-09-2022 13:45-0400 Body temperature 98 [degF] Veronica Crocker Other [facility] Other 09-09-2022 13:45-0400 Body weight 113.85 kg Veronica Crocker Other [facility] Other 09-09-2022 13:45-0400 Respiratory rate 16 /min Veronica Crocker Other [facility] Other 09-09-2022 13:45-0400 SaO2% (BldA) [Mass fraction] 97 % Veronica Crocker Other [facility] Other 07-07-2021 12:00-0500 Body height 167.64 cm Andie Blackault Other [facility] Other 07-07-2021 12:00-0500 Body mass index (BMI) [Ratio] 39.54 kg/m2 Andie Africa Other [facility] Other 07-07-2021 12:00-0500 Body temperature 97.8 [degF] Andie Africa Other [facility] Other 07-07-2021 12:00-0500 Body weight 111.13 kg Andie Africa Other [facility] Other 07-07-2021 12:00-0500 SaO2% (BldA) [Mass fraction] 93 % Andie Leger Other [facility] Other Encounters Encounter Date Encounter Type Care Provider Facility Start: 10-08-2023 End: 10-08-2023 ambulatory CARLINE KING Not Available Start: 07-11-2023 End: 07-11-2023 ambulatory [facility] Work Phone: Start: 07-11-2023 End: 07-11-2023 Patient encounter procedure [facility] Work Phone: Start: 02-03-2023 End: 02-03-2023 ambulatory Veronica Lizzette Other [facility] Other Start: 02-03-2023 Office outpatient visit 15 minutes Veronica Lizzette [facility] Start: 11-05-2022 End: 11-05-2022 ambulatory Nidhi Croft Other [facility] Other Start: 11-05-2022 Telephone encounter Nidhi Croft [facility] Start: 11-03-2022 End: 11-03-2022 ambulatory Veronica Lizzette Other [facility] Other Start: 11-03-2022 Office outpatient visit 15 minutes Veronica Lizzette [facility] Start: 09-09-2022 End: 09-09-2022 ambulatory Veronica Lizzette Other [facility] Other Start: 09-09-2022 Office outpatient visit 15 minutes Veronica Lizzette [facility] Start: 07-19-2022 End: 07-20-[address] GINNY BARNETT . Facility: Start: 07-16-2022 End: 03-22-[address] GINNY BARNETT . Facility:[facility] Start: 07-03-2022 End: 07-04-[address] GINNY BARNETT . Facility:[facility] Start: 07-07-2021 End: 07-07-2021 ambulatory Andie Africa Other [employer] Other Start: 07-07-2021 Office outpatient visit 15 minutes Andie Leger [facility] [place] Start: 01-05-2019 End: 01-06-2019 Patient encounter procedure PRISCILLA Rogers [facility] Start: 01-05-2019 End: 01-05-2019 Subsequent hospital visit by physician Mabel Galvan [facility] Laboratory Comment on above: Irregular uterine bl eeding Start: 10-06-2018 End: 10-09-2018 Patient encounter procedure WILL [facility] Start: 09-30-2018 End: 2018 Patient encounter procedure [facility] Start: 08-19-2018 End: 08-20-2018 Patient encounter procedure ANEL ROBB [facility] Start: 07-17-2017 End: 07-18-2017 Ambulatory DEFAULT PHYSICIAN [facility] Procedures Date Procedure Procedure Detail Performing Clinician Start: 01-05-2019 Gonadotropin follicl e stimulating hormone PRISCILLA AMES Start: 01-05-2019 Gonadotropin follicl e stimulating hormone Priscilla Rogers Marlyn Ames Work Phone: Start: 10-06-2018 Us pelvic nonobstetr ic real-time image complete PRISCILLA AMES Start: 09-30-2018 Screen pap by bree AMES Plan of Treatment Date Care Activity Detail Author Start: 10-18-2026 DTaP/Tdap/Td vaccine (2 - Td) DTaP/Tdap/Td vaccine (2 - Td) [place], [place] Start: 2021 Colon cancer screen colonoscopy Colon cancer screen colonoscopy [place], [place] Comment on above: Postponed from 10/01 (Not Indicated) Start: 09-30-2021 Cervical cancer screen Cervical canc er screen [place], [place] Start: 2019 Lipid screen Lipid screen [place], [place] Comment on above: Postponed from 10/01 (Not Indicated) Start: 2019 Shingles Vaccine (1 of 2) Shingles Vaccine (1 of 2) [place], [place] Comment on above: Postponed from 10/01 (Unavailable) Start: 01-26-2019 End: 01-26-2019 Office Visit 01/26/2019 Office Visit Obstetrics and Gynecology Priscilla Chacon, DO [address] [place] [id number] [facility] 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 Start: 12-27-2018 Influenza vaccination Flu vaccine (# 1) [place], [place] Start: 12-18-2018 Diabetes screen Diabetes screen [place], [place] Start: 12-17-2018 Breast cancer screen Breast cancer s creen [place], [place] Immunizations Immunization Date Immunization Notes Care Provider Fa cility 10-18-2016 tetanus toxoid, redu oscar diphtheria toxoid, and acellular pertussis vaccine, adsorbed Mabel Galvan [place], [place] Payers Date Payer Category Payer Unknown [employer] [address] xxxxxxxxxxxx 2016-Present [phone] [address] [place] [address] xxxxxxxxxxxx [id number] 1960 Unknown [id number] 1960 Unknown [id number] 1960 Unknown [id number] 1960 Unknown [id number] 1960 Unknown [id number] 1960 Unknown [id number] 1960 Unknown [id number] 9 1958 Unknown [id number] Self-pay Self Pay [id number] Unknown Social History Date Type Detail Facility Start: 01-05-2019 End: 07-11-2023 Tobacco smoking status NHIS Never smoker [facility] Start: 01-05-2019 [facility] Not on file [employer] Start: 1960 Sex Assigned At Female F [facility] Evaluation note 02-03-2023 Note Date & Type [...] no improvement in 2 to 3 days [facility] Other Evaluation note 11-03-2022 Note Date & [...] or fevers Oct, Bronchitis (ICD-10 - J40) [facility] Other Evaluation note 09-09-2022 Note Date & [...] no improvement in 2 to 3 days. [facility] Other Evaluation note 07-07-2021 Note Date & [...] weeks for the cough to go away [facility] Other Evaluation note 07-07-2021 Note Date & [...] care provider if no improvement of symptoms. 12 Mar, 2022 Bronchitis (ICD-10 - J40) Take medications as [...] weeks for the cough to go away [employer] Other Evaluation note Note Date & Type Note Facility Evaluation note No [facility] [employer] Other Evaluation note Note Date & Type Note Facility Evaluation note Diagnosis Onset Date Bilateral otitis media nonea [facility] Work Phone: History general Narrative - Reported Note Date & Type Note Facility History general Narrative - Reported Type Medical History Fibroids Medical History degenerative disc disease Surgical History cholecystectomy 1994 Surgical History Btl 1993 Surgical History tonsilectomy 1967 Surgical History Temporal arterial biopsy 019 Hospitalization History Cholecystectomy 1994 Hospitalization History & Btl 1993 Hospitalization History 1985 Hospitalization History 1979 [facility] Other History general Narrative - Reported Note Date & Type Note Facility History general Narrative - Reported [facility] Other Summary Purpose Family History No Family History Records Found Relationship Condition Age at Onset Recorded Date/T june father Malignant neoplasm of paranasal sinus Unk nown Hypertension Unknown brother Multiple sclerosis Unknown Unknown family member Unknown grandparent Unknown Aneurysm Unknown Not Specified Lymphoma Unknown Malignant neoplasm Unknown natural son Type 1 diabetes mellitus Unknown Advance Directives No Advanced Directives Records FoundDocuments on File Type Date Recorded 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 Advance Directives and Living Will 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 of 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 Advance Directive Response Recorded Date/ Time Advance Directives No May 20, 2018 4:07pm Assessments Diagnosis Irregular uterine bleeding Irregular menstrual cycle Chief Complaint and Reason for Visit Chief Complaint POSS LEFT EAR INFECT ION Reason for Visit Bilateral otitis med ia Additional Source Comments INFORMATION SOURCE (unrecogn ized section and content) DATE CREATED AUTHOR 10/17/2017 [facility] DATE CREATED AUTHOR AUTHOR'S ORGANIZ ATION 08/22/2018 [facility] DATE CREATED AUTHOR AUTHOR'S ORGANIZ ATION 01/05/2019 [facility] DATE CREATED AUTHOR AUTHOR'S ORGANIZ ATION 06/23/2019 Geovany Reese [facility] DATE CREATED AUTHOR AUTHOR'S ORGANIZ ATION 07/27/2022 [facility] DATE CREATED AUTHOR AUTHOR'S ORGANIZ ATION 10/09/2023 [facility] EPIC REASON FOR VISIT (unrecogniz ed section and [...] July 11, 2023 End: July 11, 2023 MAURA LoveC Attending Provider Active S tart: July 11, [...] BE BASED ON THE PRIMARY CLINICAL RECORDS. [facility] [employer] provides no warranty or guarantee of the accuracy or completeness of information in this document.
--- NOTE | 2023-11-28 13:17 | ECG_ITS ---
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
[2023-11-28 13:23] LABS: Basophils Absolute Auto 0.1 10^3/uL (0.0-0.1); Basophils Percent Auto 0.6 % (0.2-2.0); Eosinophils Absolute Auto 0.1 10^3/uL (0.0-0.7); Eosinophils Percent Auto 1.2 % (0.9-7.0); Hematocrit 44.8 % (36.0-48.0); Hemoglobin 14.9 g/dL (12.0-16.0); Immature Granulocytes Abs Auto 0.02 10^3/uL (0.00-0.03); Immature Granulocytes Pct Auto 0.2 % (0.0-0.5); Lymphocytes Absolute Auto 1.9 10^3/uL (1.2-3.8); Lymphocytes Percent Auto 21.9 % (20.5-60.0); Mean Corpuscular HGB Conc 33.3 g/dL (29.9-35.2); Mean Corpuscular Hemoglobin 29.3 pg (26.7-34.0); Mean Corpuscular Volume 88.2 fL (81.0-99.0); Mean Platelet Volume 10.3 fL (9.5-13.5); Monocytes Absolute Auto 0.7 10^3/uL (0.3-0.8); Monocytes Percent Auto 7.8 % (1.7-12.0); Neutrophils Absolute Auto 5.8 10^3/uL (1.4-6.5); Neutrophils Percent Auto 68.3 % (43.0-75.0); Platelet Count 321 10^3/uL (150-450); Red Blood Count 5.08 10^6/uL (4.20-5.40); Red Cell Distribution Width 13.2 % (11.0-15.0); White Blood Count 8.6 10^3/uL (4.0-11.0)
--- NOTE | 2023-11-28 13:23 | XR_ITS ---
The [address] [address] Patient Name: ERNA MONTANEZ MRN: [id number] date: 1960 Sex: F Assigned Patient Location: ER Current Patient Location: ER Accession/Order Number: [id number] Exam Date: 11/28/2023 13:31 Report Date: 11/28/2023 14:03 At the request of: CINDY GRANDE Procedure: XR chest 1V EXAMINATION: XR chest 1V HISTORY: Chest pain COMPARISON: XR chest 04/23/2021 FINDINGS: LUNGS: Obscuration of the left lateral lung base and cardiac margin, likely prominent pericardial fat pad. VASCULATURE: No increased pulmonary vasculature. PLEURA: No pneumothorax, effusion, or pleural thickening. CARDIAC: No cardiomegaly or cardiac silhouette abnormality. MEDIASTINUM: No visible mass or adenopathy. BONES: No fracture or visible bone lesion. OTHER: Negative. XR/XR chest 1V IMPRESSION: 1. Evaluation is slightly limited by underexpanded lungs, patient body evidence, and AP portable technique. 2. Dense lingular opacities; prominent pericardial fat pad versus infiltrates. Consider PA and lateral chest radiographs for greater diagnostic sensitivity if clinically indicated. Electronically authenticated by: KELLEY KING Date: 11/28/2023 14:03
--- NOTE | 2023-11-28 13:24 | ECG_ITS ---
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
--- NOTE | 2023-11-28 13:25 | ED.CHESTPAI1 ---
HPI - Chest Pain General Chief Complaint: Chest Pain Stated Complaint: CHEST PAIN Time Seen by Provider: 11/28/23 13:11 Source: patient Mode of arrival: walk-in Limitations: no limitations History of Present Illness HPI narrative: This patient is here complaining of chest pain. She was returning to her home driving her vehicle when she developed onset of discomfort. Earlier today she felt fine. She says it does not feel like heartburn or indigestion. Cardiovascular risk factors are negative for hypertension diabetes elevation cholesterol or family history. She never used any tobacco products. No illicit drugs. She had a cardiac stress test that was approximately 5 years ago that was normal. She is on a beta-colby because she and her primary care doctor and use this medication to treat her migraine headaches. She does not have any nausea vomiting or diaphoresis. She does not have any radiation to the neck jaw or arms. She does not have any tearing or ripping type sensation. Does not have any epigastric discomfort. The discomfort is in her midsternal area. She says that it is an 8/10. It does not feel sharp or stabbing it feels like pressure. Related Data Home Medications ?Medication ?Instructions ?Recorded ?Confirmed cyproheptadine 4 mg tablet 4 mg PO DAILY 11/28/23 11/28/23 metoprolol succinate 25 mg 25 mg PO DAILY 11/28/23 11/28/23 tablet,extended release 24 hr pantoprazole 40 mg tablet,delayed 40 mg PO DAILY 11/28/23 11/28/23 release tizanidine 4 mg tablet 4 mg PO DAILY 11/28/23 11/28/23 Allergies Allergy/AdvReac Type Severity Reaction Status Date / Time Penicillins Allergy Severe Hives Verified 11/28/23 15:24 nitroglycerin AdvReac Intermediate bradycardia, Verified 11/28/23 15:24 [From Nitrostat] hypotension Exam Narrative Exam Narrative: Awake alert pleasant oriented x 3. Describes it as a pressure sensation when she sits up or takes a deep breath. No nausea vomiting or diaphoresis. Stat EKG was done and shows no evidence of ST segment elevation or arrhythmia. Pulse oximetry was normal. She was afebrile. She describes her pain is level 8/10. It does not radiate into her back. Skin was warm and dry mucous membranes are moist and pink. There is no scleral icterus pallor or anemia there is no conjunctivitis. Her lungs are completely clear with no wheeze rales or rhonchi heart sounds are normal with no S3-S4 or murmur. Perfusion to the extremities is normal with good pulses in the upper and lower limbs with no evidence of vascular ischemia to the organs. Neurological examination was normal with normal cognition and mental status. She tells me that does not feel like heartburn. Extremities show no evidence of cellulitis phlebitis edema cords or ropiness are not appreciated. Constitutional Vital Signs, click to edit/add: Last Vital Signs Temp 98.4 F 11/28/23 12:54 Pulse 85 11/28/23 12:54 Resp 18 11/28/23 12:54 BP 157/79 H 11/28/23 12:54 Pulse Ox 97 11/28/23 12:54 O2 Del Method Room Air 11/28/23 12:54 Course Vital Signs Vital signs: Vital Signs Temperature 98.4 F 11/28/23 12:54 Pulse Rate 85 11/28/23 12:54 Respiratory Rate 18 11/28/23 12:54 Blood Pressure 157/79 H 11/28/23 12:54 Pulse Oximetry 97 11/28/23 12:54 Oxygen Delivery Method Room Air 11/28/23 12:54 Temperature 98.4 F 11/28/23 12:54 Pulse Rate 85 11/28/23 12:54 Respiratory Rate 18 11/28/23 12:54 Blood Pressure 157/79 H 11/28/23 12:54 Pulse Oximetry 97 11/28/23 12:54 Oxygen Delivery Method Room Air 11/28/23 12:54 MDM - Chest Pain MDM Narrative Medical decision making narrative: This patient presents with a level 8/10 midsternal discomfort. Eventually pain went down to the lower end of the sternum. She has no cardiovascular risk factors. She is not on any estrogen products. She has no history of DVT or PE and is not at risk for those conditions. Serial EKGs were done on arrival and showed no evolution of ST segments and they were essentially stable. Portable chest x-ray was done and did not show any widening of the mediastinum or pneumothorax or pulmonary problems. Because of her narrative description of the symptoms we did start addressing this with aspirin and then we gave her a trial of nitroglycerin. She had received 1 dose of morphine sulfate as well. After 1 nitroglycerin she became hypotensive and bradycardic and we moved her to a trauma room. With a small bolus of intravenous fluids she recovered very quickly. EKG prior to this time again was her third EKG and did not show any abnormalities. Her initial cardiac troponin came back negative and we repeated it in several hours and it still is negative. A CT was done without contrast after the hypotensive episode to make sure there is no evidence of vascular abnormality or aneurysm and it was negative. She was then given a cocktail of GI medications including a GI cocktail and metoclopramide intravenously. Her discomfort at that time went from a level 8 to a level 5. Although she has no risk of pulmonary embolism I have decided to make sure and we have gone ahead and done a CTA of her chest, that was after discussing the situation with her primary care doctor and we agreed to do that. The CTA of the chest is also normal. This patient then relates to us that she has had some problems with esophageal disorders but she is not sure of the specifics. She would like to go home. I believe we have ruled out any emergency medical condition. Her primary care doctor said that he would be glad to see her on Friday. She is agreeable to that. Heart Score History: Moderately Suspicious ECG: Normal Age: >45-<65 years Risk Factors: No Risk Factors Troponin: <Normal Limit Total Heart Score Recommendations & Risks:: 2 Discharge Plan Discharge Stand Alone Forms: Portal Instructions Chief Complaint: Chest Pain Clinical Impression: Atypical chest pain Patient Disposition: Home, Self-Care Time of Disposition Decision: 17:34 Prescriptions / Home Meds: No Action metoprolol succinate 25 mg tablet extended release 24 hr 25 mg PO DAILY pantoprazole 40 mg tablet,delayed release (DR/EC) 40 mg PO DAILY tizanidine 4 mg tablet 4 mg PO DAILY cyproheptadine 4 mg tablet 4 mg PO DAILY Print Language: Arabic Additional Instructions: Follow-up with Dr. Trammell on Friday. Return if symptoms would worsen. Try sitting up and do not lie down or eat heavy meals. Referrals: Akil Trammell MD [Primary Care Provider] - 1 week
[2023-11-28] MEDS: MORPHINE SULFATE 4 MG/ML VIAL IV (13:35)
[2023-11-28] MEDS: ASPIRIN 81 MG TAB.CHEW 162 MG PO (13:35)
[2023-11-28 13:37] LABS: INR 0.98; Prothrombin Time 10.4 sec (9.0-11.6)
[2023-11-28] MEDS: NITROGLYCERIN 0.4 MG BOTTLE SL (13:39)
[2023-11-28 13:41] LABS: Alanine Aminotransferase 34 U/L (14-59); Albumin Level 3.5 g/dL (3.4-5.0); Alkaline Phosphatase 88 U/L (46-116); Aspartate Amino Transferase 24 U/L (15-37); BUN Creatinine Ratio 19.3; Bilirubin Total 0.7 mg/dL (0.2-1.0); Calcium 9.1 mg/dL (8.5-10.1); Carbon Dioxide 28.7 mmol/L (21.0-32.0); Chloride 101 mmol/L (98-107); Estimated GFR (African America >60 (>=60); Estimated GFR (Non-African Ame >60 (>=60); Globulin 3.5 g/dL; Glucose 99 mg/dL (74-106); Potassium 3.7 mmol/L (3.5-5.1); Sodium 137 mmol/L (136-145)
[2023-11-28] MEDS: 0.9 % SODIUM CHLORIDE 1,000 ML 999 ML IV (13:55)
[2023-11-28 14:02] LABS: Troponin I High Sensitivity 4.1 pg/mL (4.0-51.3)
--- NOTE | 2023-11-28 14:03 | CT_ITS ---
[address] [address] Patient Name: ERNA MONTANEZ MRN: [id number] date: 1960 Sex: F Assigned Patient Location: ER Current Patient Location: ER Accession/Order Number: [id number] Exam Date: 11/28/2023 14:12 Report Date: 11/28/2023 14:50 At the request of: CINDY GRANDE Procedure: CT chest wo con EXAMINATION: CT chest wo con HISTORY: Chest pain COMPARISON: CTA chest 03/30/2020 TECHNIQUE: Axial, Coronal, and Sagittal images were created without the administration of IV contrast material. Dose reduction techniques were achieved by using automated exposure control and/or adjustment of mA and/or kV according to patient size and/or use of iterative reconstruction technique. FINDINGS: LUNGS: No visible pulmonary disease. PLEURA: No mass, effusion, or pneumothorax. VASCULATURE: No abnormality. MICHELLE: No mass or pathologic adenopathy. MEDIASTINUM: No mass or pathologic adenopathy. CARDIAC: No enlargement, pericardial thickening, or pericardial effusion. Coronary Artery calcifications: Coronary calcifications are absent. AORTA: No aneurysm or dissection. CHEST WALL: No mass or axillary adenopathy BONES: No bone lesion or fracture. LIMITED ABDOMEN: No suspicious findings. Limited images of the upper abdomen. OTHER: Negative. CT/CT chest wo con IMPRESSION: 1. No acute or suspicious findings to account for patient's symptoms. Electronically authenticated by: KELLEY KING Date: 11/28/2023 14:50
[2023-11-28] MEDS: lidocaine HCL 15 ML, MAG HYDROX/ALUMINUM HYD/SIMETH 30 ML, HYOSCYAMINE SULFATE 0.25 MG PO (15:16)
[2023-11-28] MEDS: METOCLOPRAMIDE HCL 10 MG/2 ML VIAL IVP (15:17)
[2023-11-28 15:42] LABS: Troponin I High Sensitivity <4.0 pg/mL (4.0-51.3)
--- NOTE | 2023-11-28 16:28 | CT_ITS ---
[address] [address] Patient Name: ERNA MONTANEZ MRN: [id number] date: 1960 Sex: F Assigned Patient Location: ER Current Patient Location: ER Accession/Order Number: [id number] Exam Date: 11/28/2023 16:38 Report Date: 11/28/2023 17:17 At the request of: CINDY GRANDE Procedure: CT angio chest EXAM: CT angio chest HISTORY: Chest pain COMPARISON: 11/28/2023 TECHNIQUE: CT chest with intravenous contrast was performed with timing for the evaluation for pulmonary arteries. Multiplanar reformats were performed. MIP (maximum intensity projection) images or 3D post processing was performed. Dose reduction techniques were achieved by using automated exposure control and/or adjustment of mA and/or kV according to patient size and/or use of iterative reconstruction technique. FINDINGS: Lungs: No consolidation, pneumothorax, or effusion. Airways: Normal. Mediastinum: No adenopathy. Aorta: No aneurysm. Cardiac: Normal size. No pericardial effusion. Pulmonary vasculature: Diagnostic opacification of pulmonary arteries without evidence of pulmonary embolus. Normal morphology. Bones: No acute bony abnormality. Axilla: No adenopathy. Thyroid gland: No abnormality demonstrated on provided imaging. Soft tissues: Unremarkable. Upper abdomen: Unremarkable. Additional findings: None. CT/CT angio chest IMPRESSION:No evidence of pulmonary embolus or acute intrathoracic abnormality. Electronically authenticated by: MARIO BECKFORD Date: 11/28/2023 17:17
[2023-11-28] MEDS: PANTOPRAZOLE SODIUM 40 MG VIAL IV (17:07)
--- NOTE | 2023-11-28 19:15 | ECG_ITS ---
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
== END 2023-11-28 18:02 | disposition home or self-care (01) ==
PROVIDERS: Emergency Provider Emergency Medicine Emergency Medical Services; PCP Family Medicine
DX: R07.89 Other chest pain (principal)
CPT/HCPCS: 36415; 71045; 71250; 71275; 80048; 80053; 83880; 84484; 85025; 85610; 93005; 96374; 96375; 99285; J2270; J2765; Q9967

== ENCOUNTER 2023-12-12 10:41 | Outpatient (OUT) | payer OTHER, SELFPAY ==
--- NOTE | 2023-12-12 | PCN_ITS ---
CARDIAC STRESS TEST Requesting Physician: Akil Trammell M.D. Procedure Date: 12/12/2023 PERFORMING PROVIDER: Brady Kwon M.D. INDICATION: Chest pain. STRESS TEST TYPE: Nuclear stress test with treadmill. PROTOCOL: Kendrick protocol. Resting heart rate: 104 Max heart rate: 155 Peak maximal heart percentage: 98% Resting blood pressure: 140/92 Max blood pressure: 178/90 Exercise time: 4 minute 36 seconds Stage reached: 2 METS: 7 Heart rate recovery: Normal. Chronotropic response index: 0.94, on beta colby. Functional capacity: Average Blood pressure response: Normal. Maldonado treadmill score: 4 ST changes: T-wave inversion in lead 3, similar to as when at rest. Symptoms: Fatigue, no chest pain. CONCLUSIONS: 1. Resting EKG is abnormal with sinus tachycardia, non-specific T-wave abnormality. 2. There were no definite EKG changes meeting the criteria for ischemia at peak maximal heart rate. 3. Maldonado treadmill score of 4, which portends medium risk of angiographically significant coronary artery disease. 4. Please refer to separately interpreted and reported nuclear myocardial perfusion imaging. MTDD
--- NOTE | 2023-12-12 10:55 | NM_ITS ---
Patient Name: ERNA MONTANEZ MR#: [id number] : 1960 Exam Date: 12/12/2023 Ordering Doctor: DR Akil Trammell . RADIOLOGY REPORT PROCEDURE: NM CHANA PERF SPECT REST STR COMPARISON: None. INDICATIONS: CHEST PAIN TECHNIQUE: Exam Description: Rest/Stress one day protocol gated SPECT Rest Imagin.9 mCi Tc-99m Cardiolite IV on 12/12/2023 Stress Imaging 29.8 mCi Tc-99m Cardiolite IV on 12/12/2023 Exercise Protocol: Kendrick Heart Rate (bpm): Rest: 104 Max: 155 PMHR: 98 Blood Pressure: Rest: 140/92 Max: 178/96 Exercise Time: Minutes: 4 Seconds: 36 Stage Reached: Stage: 2 Mets 7.0 Symptoms: Rest and peak stress ECG findings were pending and the exercise portion of the study was pending per attending physician Dr. Kwon . For more details please see separate cardiac stress test report. FINDINGS: QUALITY OF STUDY: Excellent. PERFUSION DEFECT: None. LOCATION: N/A SIZE: N/A. SEVERITY: N/A. TYPE: N/A. WALL MOTION: Normal. LV SIZE: Normal. 68 mL. TID / TCD: None; 1.1 LVEF: Normal. Calculated EF 77%. SUMMARY: Myocardial perfusion imaging study is NORMAL. CONCLUSION: 1. Normal nuclear medicine myocardial perfusion scan. Dictated by: Stevenson Watson M.D. on 12/12/2023 at 14:38 Approved by: Stevenson Watson M.D. on 12/12/2023 at 14:40
== END 2023-12-12 10:42 | disposition home or self-care (01) ==
LOC: NM 10:42
PROVIDERS: PCP Family Medicine; Visit Provider Family Medicine
DX: R07.9 Chest pain, unspecified (principal)
CPT/HCPCS: 78452; 93017; A9500

== ENCOUNTER 2023-12-18 11:35 | Outpatient (OUT) | payer OTHER, SELFPAY ==
--- OUTSIDE RECORDS SUMMARY | 2023-12-18 11:42 | XMS_ITS | CCD ---
Author Organization [facility] CliniSyut Care Team Providers Care Supply Room Clerk Name Role Phone PHYSICIAN, DEFAULT Unavailable Unavailable [...] Penicillin; Translations: [PENICILLIN] Drug Allergy 07-25-[address] [facility] Repository (2 sources) Penicillins Propensity to adverse reactions to drug 12-07-19 17 Rash [place] (7 sources) Sulfamethoxazole / Trimethoprim Drug Allergy 02-19-20 17 Nausea [place] Vomiting [place] (7 sources) Penicillin G Drug Allergy 07-11-19 24 hives [facility] (1 source) Penicillins Drug allergy (disorder) 10-17-19 16 [facility] (2 sources) Cephalexin Drug Allergy rash [place] [facility] Other (1 source) Cephalexin Drug Allergy 07-11-19 24 rash [facility] (1 source) Sulfamethoxazole Drug Allergy 07-11-19 24 nausea and vomiting [facility] (1 source) Trimethoprim Drug Allergy 07-11-19 24 nausea and vomiting [facility] Medications Current Medications Medication Drug Class(es) Dates Sig (Normalized) Sig (Original) [id number] 200 actuat albuterol 0.09 mg/actuat metered dose [...] by mouth every eight hours Hydrocodone-Acetam inophen (Cerulean) 5-325 mg tablet Discontinued 1 TAB PO [...] STEVENSON WATSON Date: 2022-07-19 15:01 Normal [facility] MG MAMM SCREEN 3D JUAN CADon 07-16-2022 MG MAMM SCREEN 3D JUAN CAD Patient: MONET MONTANEZ Exam Date: 07/16/2022 : 1960 Gender:F Ordering : DR GINNY BARNETT . Admission #: [id number] Family : Order #: [id number] CLICK HERE TO VIEW EXAM RADIOLOGY REPORT [...] lymohoma cancer at age 59. LOCATION: [facility] BREAST COMPOSITION: Scattered areas fibroglandular density. FINDINGS: [...] Watson M.D. on 07/16/2022 at 16:18 [facility] XR LSPINE MIN 4 VIEWSon 03-0 [...] by: STEVENSON WATSON Date: 2022-07-03 16:36 [facility] Quick Fluon 08-06-2021 FLUAV Ab CF (S) [Titer] Negative [facility] Other FLUBV Ab CF (S) [Titer] neagtive [facility] Other Coding Summary.on 06-23-2019 Coding Summary. CODING DATE: 06/23/2019 [facility] STATUS: Home (Routine DC) PAYOR: Medical [employer] ADMIT DX: REASON FOR VISIT DX: Z09 [...] CphT Date Saved: 06/23/2019 10:03 am Normal [facility] Consultation Noteon 06-22-19 Consultation Note Patient: MONET [...] All Problems HTN (hypertension) / SNOMED CT 7170594963 / Confirmed Migraine headache / SNOMED CT 14479288 / Confirmed Pelvic kidney / SNOMED CT 06285012 / Confirmed Histories Past Medical History: No active or resolved past medical history items have been selected or recorded. Family History: No family history items have been selected or recorded. Procedure history: Cholecystectomy (SNOMED CT 49991094). Comments: 06/22/2019 14:50 EST - Day Anel MEDINA 1994 Dr Morgan @[facility] Tubal ligation (SNOMED CT 629843709). Comments: 06/22/2019 14:51 EST - Day Anel MEDINA 1993 [facility] Temporal artery biopsy (SNOMED CT 7601465115). Comments: 06/22/2019 14:51 EST - Day Anel [...] office on a as needed basis. Normal [facility] Comment on above: Result Comment: Elec tronically Signed By: Cynthia VALDEZ, Jane\.br\Date and Time Signed: 06/22/19 15:45 EST\.br\Electronically Co-Signed By: Avery BHAKTA, Willis Ann\.br\Date and Time Co-Signed: 06/23/19 00:38 EST Follicle Stim. Hormon 2018 Follicle Stim. Horm 33.4 U/L Normal 25.8-134.8 [facility] Comment on above: Result Comment: Refe rence Range: Male: 1.5-12.4 Ovulating Female: Follicular Phase 3.5-12.5 Ovulation Phase 4.7-21.5 Luteal Phase 1.7-7.7 Postmenopausal Female: 25.8-134.8 Performed By: #### F SH #### [facility] [address] [place] [address] Microsoft Application Developer: Ky Estrada MD Follicle Stimulating Hormone on 01-05-2019 FSH 33.4 U/L 25.8 - 134.8 U/L [place] Comment on above: Reference Range: Male: 1.5-12.4 Ovulating Female: Follicular Phase 3.5-12.5 Ovulation Phase 4.7-21.5 Luteal Phase 1.7-7.7 Postmenopausal Female: 25.8-134.8 US PELVIS COMPLETEon 019 US PELVIS COMPLETE EXAMINATION: Ultrasound pelvis complete 10/06/2018 TECHNIQUE: Transabdominal and transvaginal pelvic ultrasound was performed. COMPARISON: CT abdomen and pelvis May 01, 2017 HISTORY: Postmenopausal bleeding [employer] indicates irregular postmenopausal bleeding FINDINGS: Measurements: [...] Pierre Zamarripa MD 10/06/18 Final result Normal [facility] Cytologyon 09-30-2018 Cytology (NOTE) [id number] [facility] ANATOMIC PATHOLOGY [address] [place], [place] [address] GYNECOLOGIC CYTOLOGY REPORT Patient Name: MONET MONTANEZ MR#: [id number] Specimen #[id number] Source: 1: Cervical material, (ThinPrep vial, Imaging-assisted review) Clinical History N95.0 Postmenopausal bleeding High Risk HPV DNA testing is requested if the diagnosis is ASC-US LMP: 09/14/18 INTERPRETATION Cervical material, (ThinPrep vial, Imaging-assisted review): Specimen Adequacy: Satisfactory for evaluation. - Endocervical/transfor mation zone component present. Descriptive Diagnosis: Negative for intraepithelial lesion or malignancy. Knowledge Management Consultant: SERGIO Boland(ASCP) Electronically Signed Out /10/06/2018 [facility] Comment on above: Performed By: #### P PPVP #### [facility] [address] [address] Microsoft Application Developer: MD George Lopez 08-19-2018 CNCO Letter Text [facility] CNOVon 08-19-2018 CNOV Office Visit (JUANITO ) MONET MONTANEZ ([id number]) 1960 F Date Time Provider Department 08/19/18 11:00 AM ANEL ROBB During your visit today, we recorded the following information about you: Pulse Blood pressure Weight Height 83/minute 140/93 108.4 kg 1.676 m Anel Robb MD 08/19/2018 12:22 PM Signed Mabel Galvan MD (C) [address] [address] PCP: Mabel Galvan MD Accompanied by: Self [...] MRI neck.- reviewd and uploaded to [facility] Records reviewed: yes Family History: FAMILY [...] it is Hemicrania Continua, but 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 IHS diagnosis based on current history and exam: (G44.51) Hemicrania continua (primary encounter diagnosis) Plan: Discussed all options for treatment. Please obtain generic omeprazole (20 mg) [Future Ad Labs, Offerum, SSP Europes Club, etc] and start one daily. You [...] pain, and counseling about diet, medications, and terminal operator implications. The patient has my contact information and my chart sign up information. MD Anel Wong MD 08/19/2018 11:44 AM Signed Week 1: -Please obtain generic omeprazole (20 mg) [Future Ad Labs, Offerum, [employer] Overseas Club, etc] and start one daily. You [...] ensuing treatment plans will be released via Spritz and discussed during your follow-up appointment. Follow-up appointments are primarily provided by the Nurse Practioners and Physician?s Assistants in order to provide timely, accessible care. MyChart: Please ask the schedulers to give you an activation code. The main way of communication is by Peekapakhart rather than phone lines, so if you have not signed up, please do so. Applied NanoWorkst is also the way that you can review your labs and testing. We are not able to contact everyone to tell them results are normal. If you do not hear back from us regarding testing you have had, it should be considered normal or within normal range. If you have any questions about the results, you are free to message us. ? Applied NanoWorkst is meant for simple questions regarding medications, possible side effects, or other simple straight forward questions in limited sentences, rather than multiple paragraphs of discussion. Spritz is not meant for, or efficient for [...] WEBCAM CONNECTED: 1. Go to the URL: [email or web address] 2. Click on Sign Up and Create a patient account for yourself. 3. Please also follow the links to ?Test My Computer?. 4. Follow the steps suggested, testing your Internet Speed, Webcam, Microphone, Speaker, and your video software. 5. Please make sure your video software is up-to-date. This is a safe, [facility] approved download, and will not harm your computer. ? ON AN IPHONE, IPAD, OR ANDROID DEVICE: 1. Open up the Sylvester Store or Google Sweet Surrender D[employer] Cock[employer] Loungetore and search [facility] RotoPop Online. 2. Download and Install the Application. 3. Tap on Sign Up and create a patient account for yourself. 4. Please use an e-mail address that you frequently check, as you will receive an e-mail appointment from [facility] RotoPop Online. ? Find our user guide, here: [email or web address] ? Important: Don?t forget your password you [...] connected to the provider. ? Please call [phone] prior to your visit if you have [...] your PCP/referring physician. Referring Provider: MABEL GALVAN [[id number]] Allergies As of Date: 08/19/2018 Noted Allergy [...] 1: -Please obtain generic omeprazole (20 mg) [Future Ad Labs, Offerum, SSP Europes Club, etc] and start one daily. You [...] ensuing treatment plans will be released via Spritz and discussed during your follow-up appointment. Follow-up appointments are primarily provided by the Nurse Practioners and Physician?s Assistants in order to provide timely, accessible care. Peekapakhart: Please ask the schedulers to give you an activation code. The main way of communication is by Peekapakhart rather than phone lines, so if you have not signed up, please do so. Applied NanoWorkst is also the way that you can review your labs and testing. We are not able to contact everyone to tell them results are normal. If you do not hear back from us regarding testing you have had, it should be considered normal or within normal range. If you have any questions about the results, you are free to message us. ? Applied NanoWorkst is meant for simple questions regarding medications, possible side effects, or other simple straight forward questions in limited sentences, rather than multiple paragraphs of discussion. Spritz is not meant for, or efficient for [...] WEBCAM CONNECTED: 1. Go to the URL: [facility] [email or web address] 2. Click on Sign Up and Create a patient account for yourself. 3. Please also follow the links to ?Test My Computer?. 4. Follow the steps suggested, testing your Internet Speed, Webcam, Microphone, Speaker, and your video software. 5. Please make sure your video software is up-to-date. This is a safe, [facility] approved download, and will not harm your computer. ? ON AN IPHONE, IPAD, OR ANDROID DEVICE: 1. Open up the Sylvester Store or [employer] and search [facility] REMOTV Care Online. 2. Download and Install the Application. 3. Tap on Sign Up and create a patient account for yourself. 4. Please use an e-mail address that you frequently check, as you will receive an e-mail appointment from [facility] REMOTV Care Online. ? Find our user guide, here: [email or web address] ? Important: Don?t forget your password you [...] connected to the provider. ? Please call [phone] prior to your visit if you have [...] by ANEL ROBB MD on 08/19/18 Normal [facility] HISTORY PHYSICALon HISTORY PHYSICAL HNO ID: [id number] Author: Anel Robb Service: ? Author Type: Physician Type: HANDP Filed: 08/19/2018 12:22 PM Note Text: Mabel Galvan MD ([facility]) [address] [address] PCP: Mabel Galvan MD Accompanied by: Self [...] MRI neck.- reviewd and uploaded to [facility] Records reviewed: yes Family History: FAMILY [...] rate, volume and articulation. 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 IHS diagnosis based on current history and exam: (G44.51) Hemicrania continua (primary encounter diagnosis) Plan: Discussed all options for treatment. Please obtain generic omeprazole (20 mg) [[employer], [email or web address].com's, Abad's Club, etc] and start one daily. [...] up information. Anel Robb MD [facility] MR-MR angio head wo con IMPO RTon 05-25-2018 MR-MR angio head wo con IMPORT Images were obtained outside of [facility] [id number] N [facility] NV-MRI BRAIN WO CON IMPORTon 02-25-2018 NV-MRI BRAIN WO CON IMPORT Images were obtained outside of [facility] [id number] N [facility] NV-MRI C-SPINE WO CON IMPORT on 02-25-2018 NV-MRI C-SPINE WO CON IMPORT Images were obtained outside of [facility] [id number] N [facility] Vital Signs Date Time Vital Sign Value Performing Clinician Facility 07-11-2023 16:24-0400 Body height 2011.68 cm [facility] 07-11-2023 16:24-0400 Body mass index (BMI) [Ratio] 0.3 kg/m2 [facility] 07-11-2023 16:24-0400 Body temperature 98.5 [degF] [facility] 07-11-2023 16:24-0400 Body weight 114.3 kg [facility] 07-11-2023 16:24-0400 Diastolic blood pressure 85 mm[Hg] [facility] 07-11-2023 16:24-0400 Heart rate 83 /min [facility] 07-11-2023 16:24-0400 Respiratory rate 18 /min [facility] 07-11-2023 16:24-0400 SaO2% (BldA) [Mass fraction] 95 % [facility] 07-11-2023 16:24-0400 Systolic blood pressure 148 mm[Hg] [facility] 02-03-2023 12:20-0400 Body height 167.64 cm Veronica Crocker Other [facility] Other 02-03-2023 12:20-0400 Body mass index (BMI) [Ratio] 40.31 kg/m2 Veronica Crocker Other [facility] Other 02-03-2023 12:20-0400 Body temperature 99.4 [degF] Veronica Crocker Other [facility] Other 02-03-2023 12:20-0400 Body weight 113.31 kg Veronica Crocker Other [facility] Other 02-03-2023 12:20-0400 Diastolic blood pressure 88 mm[Hg] Veronica Lizzette Other [facility] Other 02-03-2023 12:20-0400 Respiratory rate 18 /min Veronica Lizzette Other [facility] Other 02-03-2023 12:20-0400 SaO2% (BldA) [Mass fraction] 96 % Veronica Lizzette Other [facility] Other 02-03-2023 12:20-0400 Systolic blood pressure 128 mm[Hg] Veronica Lizzette Other [facility] Other 11-03-2022 12:35-0400 Body height 167.64 cm Veronica Lizzette Other [facility] Other 11-03-2022 12:35-0400 Body mass index (BMI) [Ratio] 40.51 kg/m2 Veronica Lizzette Other [facility] Other 11-03-2022 12:35-0400 Body temperature 97.9 [degF] Veronica Lizzette Other [facility] Other 11-03-2022 12:35-0400 Body weight 113.85 kg Veronica Lizzette Other [facility] Other 11-03-2022 12:35-0400 Respiratory rate 18 /min Veronica Lizzette Other [facility] Other 11-03-2022 12:35-0400 SaO2% (BldA) [Mass fraction] 97 % Veronica Lizzette Other [facility] Other 09-09-2022 13:45-0400 Body height 167.64 cm Veronica Crocker Other [facility] Other 09-09-2022 13:45-0400 Body mass index (BMI) [Ratio] 40.51 kg/m2 Veronica Crocker Other [facility] Other 09-09-2022 13:45-0400 Body temperature 98 [degF] Veronica Crocker Other [facility] Other 09-09-2022 13:45-0400 Body weight 113.85 kg Veronica Crocker Other [facility] Other 09-09-2022 13:45-0400 Respiratory rate 16 /min Veronica Crocker Other [facility] Other 09-09-2022 13:45-0400 SaO2% (BldA) [Mass fraction] 97 % Veronica Crocker Other [facility] Other 07-07-2021 12:00-0500 Body height 167.64 cm Andie Blackault Other [facility] Other 07-07-2021 12:00-0500 Body mass index (BMI) [Ratio] 39.54 kg/m2 Andie Africa Other [facility] Other 07-07-2021 12:00-0500 Body temperature 97.8 [degF] Andie Africa Other [facility] Other 07-07-2021 12:00-0500 Body weight 111.13 kg Andie Africa Other [facility] Other 07-07-2021 12:00-0500 SaO2% (BldA) [Mass fraction] 93 % Andie Leger Other [facility] Other Encounters Encounter Date Encounter Type Care Provider Facility Start: 10-08-2023 End: 10-08-2023 ambulatory CARLINE KING Not Available Start: 07-11-2023 End: 07-11-2023 ambulatory [facility] Work Phone: Start: 07-11-2023 End: 07-11-2023 Patient encounter procedure [facility] Work Phone: Start: 02-03-2023 End: 02-03-2023 ambulatory Veronica Lizzette Other [facility] Other Start: 02-03-2023 Office outpatient visit 15 minutes Veronica Lizzette [facility] Start: 11-05-2022 End: 11-05-2022 ambulatory Nidhi Croft Other [facility] Other Start: 11-05-2022 Telephone encounter Nidhi Croft [facility] Start: 11-03-2022 End: 11-03-2022 ambulatory Veronica Lizzette Other [facility] Other Start: 11-03-2022 Office outpatient visit 15 minutes Veronica Lizzette [facility] Start: 09-09-2022 End: 09-09-2022 ambulatory Veronica Lizzette Other [facility] Other Start: 09-09-2022 Office outpatient visit 15 minutes Veronica Lizzette [facility] Start: 07-19-2022 End: 07-20-[address] GINNY BARNETT . Facility: Start: 07-16-2022 End: 03-22-[address] GINNY BARNETT . Facility:[facility] Start: 07-03-2022 End: 07-04-[address] GINNY BARNETT . Facility:[facility] Start: 07-07-2021 End: 07-07-2021 ambulatory Andie Africa Other [place] [facility] Other Start: 07-07-2021 Office outpatient visit 15 minutes Andie Leger [facility] [place] Start: 01-05-2019 End: 01-06-2019 Patient encounter procedure PRISCILLA Rogers AMES [facility] Start: 01-05-2019 End: 01-05-2019 Subsequent hospital visit by physician Mabel Galvan [facility] Laboratory Comment on above: Irregular uterine bl eeding Start: 10-06-2018 End: 10-09-2018 Patient encounter procedure WILL [facility] Start: 09-30-2018 End: 2018 Patient encounter procedure [facility] Start: 08-19-2018 End: 08-20-2018 Patient encounter procedure ANEL ROBB [facility] Start: 07-17-2017 End: 07-18-2017 Ambulatory DEFAULT PHYSICIAN Facility:[facility] Procedures Date Procedure Procedure Detail Performing Clinician [...] - Td) DTaP/Tdap/Td vaccine (2 - Td) [place] Start: 2021 Colon cancer screen colonoscopy Colon cancer screen colonoscopy [place], [place] Comment on above: Postponed from 10/01 (Not Indicated) Start: 09-30-2021 Cervical cancer screen Cervical canc er screen [place], [place] Start: 2019 Lipid screen Lipid screen [place], [place] Comment on above: Postponed from 10/01 (Not Indicated) Start: 2019 Shingles Vaccine (1 of 2) Shingles Vaccine (1 of 2) [place] Comment on above: Postponed from 10/01 (Unavailable) Start: 01-26-2019 End: 01-26-2019 Office Visit 01/26/2019 Office Visit Obstetrics and Gynecology Priscilla Chacon, DO [address] [place] [id number] [facility] [employer] INSTRUCTOR Start: 12-27-2018 Influenza vaccination Flu vaccine (# 1) [place] Start: 12-18-2018 Diabetes screen Diabetes screen [place], [place] Start: 12-17-2018 Breast cancer screen Breast cancer s creen [place] Immunizations Immunization Date Immunization Notes Care Provider Fa cility 10-18-2016 tetanus toxoid, redu oscar diphtheria toxoid, and acellular pertussis vaccine, adsorbed Mabel Galvan [place] Payers Date Payer Category Payer Unknown [employer] [address] xxxxxxxxxxxx 2016-Present [phone] [address] [place] [address] xxxxxxxxxxxx [id number] 1960 Unknown [id number] 1960 Unknown [id number] 1960 Unknown [id number] 1960 Unknown [id number] 1960 Unknown [id number] 1960 Unknown [id number] 1960 Unknown [id number] 9 1958 Unknown [id number] Self-pay Self Pay [id number] Unknown Social History Date Type Detail Facility Start: 01-05-2019 End: 07-11-2023 Tobacco smoking status NHIS Never smoker [facility] Start: 01-05-2019 [facility] Not on file [employer] Start: 1960 Sex Assigned At Female F [facility] Evaluation note 02-03-2023 Note Date & Type [...] no improvement in 2 to 3 days [facility] Other Evaluation note 11-03-2022 Note Date & [...] or fevers Oct, Bronchitis (ICD-10 - J40) [facility] Other Evaluation note 09-09-2022 Note Date & [...] no improvement in 2 to 3 days. [facility] Other Evaluation note 07-07-2021 Note Date & [...] weeks for the cough to go away [facility] Other Evaluation note 07-07-2021 Note Date & [...] weeks for the cough to go away [place] [facility] Other Evaluation note Note Date & Type Note Facility Evaluation note No Information [facility] Other Evaluation note Note Date & Type Note Facility Evaluation note Diagnosis Onset Date Bilateral otitis media nonea [facility] Work Phone: History general Narrative - Reported Note Date & Type Note Facility History general Narrative - Reported Type Medical History Fibroids Medical History degenerative disc disease Surgical History cholecystectomy 1994 Surgical History Btl 1993 Surgical History tonsilectomy 1967 Surgical History Temporal arterial biopsy 019 Hospitalization History Cholecystectomy 1994 Hospitalization History & Btl 1993 Hospitalization History 1985 Hospitalization History 1979 [facility] Other History general Narrative - Reported Note Date & Type Note Facility History general Narrative - Reported [place] [facility] Other Summary Purpose Family History No Family [...] FoundDocuments on File Type Date Recorded Patient Magazine Feeder Expl anation Advance Directives and Living Will Power of Mallet Cutter Advance Directive Response Recorded Date/ Time Advance Directives No May 20, 2018 4:07pm Assessments Diagnosis Irregular uterine bleeding Irregular menstrual cycle Chief Complaint and Reason for Visit Chief Complaint POSS LEFT EAR INFECT ION Reason for Visit Bilateral otitis med ia Additional Source Comments INFORMATION SOURCE (unrecogn ized section and content) DATE CREATED AUTHOR 10/17/2017 [facility] DATE CREATED AUTHOR AUTHOR'S ORGANIZ ATION 08/22/2018 [facility] DATE CREATED AUTHOR AUTHOR'S ORGANIZ ATION 01/05/2019 [facility] DATE CREATED AUTHOR AUTHOR'S ORGANIZ ATION 06/23/2019 Geovany Reese [facility] DATE CREATED AUTHOR AUTHOR'S ORGANIZ ATION 07/27/2022 [facility] DATE CREATED AUTHOR AUTHOR'S ORGANIZ ATION 10/09/2023 [facility] d[facility] Specialists EPIC REASON FOR VISIT (unrecogniz [...] THE PRIMARY CLINICAL RECORDS. [facility] [email or web address] provides no warranty or guarantee of the accuracy or completeness of information in this document.
[2023-12-18 11:53] LABS: Basophils Absolute Auto 0.1 10^3/uL (0.0-0.1); Basophils Percent Auto 0.8 % (0.2-2.0); Eosinophils Absolute Auto 0.1 10^3/uL (0.0-0.7); Eosinophils Percent Auto 1.6 % (0.9-7.0); Hematocrit 43.6 % (36.0-48.0); Hemoglobin 14.4 g/dL (12.0-16.0); Immature Granulocytes Abs Auto 0.02 10^3/uL (0.00-0.03); Immature Granulocytes Pct Auto 0.3 % (0.0-0.5); Lymphocytes Absolute Auto 1.5 10^3/uL (1.2-3.8); Lymphocytes Percent Auto 18.9 % (20.5-60.0); Mean Corpuscular Hemoglobin 29.1 pg (26.7-34.0); Mean Corpuscular Volume 88.3 fL (81.0-99.0); Mean Platelet Volume 9.3 fL (9.5-13.5); Monocytes Absolute Auto 0.6 10^3/uL (0.3-0.8); Monocytes Percent Auto 8.3 % (1.7-12.0); Neutrophils Absolute Auto 5.4 10^3/uL (1.4-6.5); Neutrophils Percent Auto 70.1 % (43.0-75.0); Platelet Count 519 10^3/uL (150-450); Red Blood Count 4.94 10^6/uL (4.20-5.40); Red Cell Distribution Width 13.3 % (11.0-15.0); White Blood Count 7.7 10^3/uL (4.0-11.0)
[2023-12-18 12:54] LABS: Estimated Average Glucose 108 mg/dL; Glycohemoglobin A1C 5.4 % (4.5-6.2)
[2023-12-18 13:59] LABS: Alanine Aminotransferase 21 U/L (14-59); Albumin Globulin Ratio 0.8; Albumin Level 3.2 g/dL (3.4-5.0); Alkaline Phosphatase 92 U/L (46-116); Anion Gap 9.8; Aspartate Amino Transferase 13 U/L (15-37); BUN Creatinine Ratio 18.4; Bilirubin Total 0.6 mg/dL (0.2-1.0); Calcium 9.2 mg/dL (8.5-10.1); Carbon Dioxide 30.9 mmol/L (21.0-32.0); Chloride 99 mmol/L (98-107); Chol HDL Ratio 5.1; Cholesterol 203 mg/dL (<=200); Estimated GFR (African America >60 (>=60); Estimated GFR (Non-African Ame >60 (>=60); Free T3 2.01 pg/mL (2.18-3.98); Glucose 84 mg/dL (74-106); HDL Cholesterol 40 mg/dL (40-60); Potassium 3.7 mmol/L (3.5-5.1); Sodium 136 mmol/L (136-145); Thyroid Stimulating Hormone 2.932 uIU/mL (0.358-3.740); Total Protein 7.2 g/dL (6.4-8.2); Triglycerides 86 mg/dL (<=150); VLDL CHOLESTEROL 17.2 mg/dL
[2023-12-19 10:08] LABS: Insulin 7.4 uIU/mL (2.6-24.9)
[2023-12-19 14:10] LABS: Thyroglobulin Antibody <1.0 IU/mL (0.0-0.9); Thyroid Peroxidase (TPO) Ab <9 IU/mL (0-34)
== END 2023-12-18 11:36 | disposition home or self-care (01) ==
LOC: LAB 11:37
PROVIDERS: PCP Family Medicine; Visit Provider Family Medicine
DX: Z00.00 Encounter for general adult medical examination without abnormal findings (principal); E03.9 Hypothyroidism, unspecified; R00.0 Tachycardia, unspecified
CPT/HCPCS: 36415; 80053; 80061; 83036; 83525; 83540; 84436; 84443; 84481; 85025; 86376; 86800; 93246

== ENCOUNTER 2023-12-25 10:44 | Outpatient (REF) | payer OTHER, SELFPAY ==
[2023-12-26 11:18] LABS: Internal Control Within Normal Limits; Occult Blood Negative
== END 2023-12-25 10:45 | disposition home or self-care (01) ==
LOC: LAB 10:44
PROVIDERS: PCP Family Medicine; Visit Provider Family Medicine
DX: D64.9 Anemia, unspecified (principal)
CPT/HCPCS: G0328

== ENCOUNTER 2024-01-19 10:17 | Outpatient (OUT) | payer OTHER, SELFPAY ==
--- OUTSIDE RECORDS SUMMARY | 2024-01-19 10:36 | XMS_ITS | CCD ---
Author Organization [facility] Clini[facility]ga Care Team Providers Care Director Pharmacy Services Name Role Phone PHYSICIAN, DEFAULT Unavailable Unavailable [...] STEVENSON Babb Consulting Unavailable HOY ., DR RGOSS Consulting Unavailable HOY ., DR GROSS Primary Care Unavailable HOY ., DR GROSS Admitting Unavailable HOY ., DR GROSS Attending Unavailable ZIEBER, DR STEVENSON Babb Consulting Unavailable Veronica Crocker Unavailable Nidhi Croft Unavailable CARLINE KIGN Attending Unavailable Allergies Allergy Classification Reported Allergen(s) Allergy Type Date of Onset Reaction(s) Facility (1 source) Penicillin; Translations: [PENICILLIN] Drug Allergy 07-25-19 18 [facility] Repository (2 sources) Penicillins Propensity to adverse reactions to drug 12-07-19 17 Rash [place] (7 sources) Sulfamethoxazole / Trimethoprim Drug Allergy 02-19-20 17 Nausea [place] Vomiting [place] (7 sources) Penicillin G Drug Allergy 07-11-19 24 hives [facility] (1 source) Penicillins Drug allergy (disorder) 10-17-19 16 [facility] (2 sources) Cephalexin Drug Allergy rash [place] [facility] Other (1 source) Cephalexin Drug Allergy 07-11-19 24 rash [facility] (1 source) Sulfamethoxazole Drug Allergy 07-11-19 24 nausea and vomiting [facility] (1 source) Trimethoprim Drug Allergy 07-11-19 24 nausea and vomiting [facility] Medications Current Medications Medication Drug Class(es) Dates Sig (Normalized) Sig (Original) [id number] 200 actuat albuterol 0.09 mg/actuat metered dose [...] by mouth every eight hours Hydrocodone-Acetam inophen ([place]) 5-325 mg tablet Discontinued 1 TAB PO [...] WATSON Date: 2022-07-19 15:01 Normal [facility] MG MAMM SCREEN 3D JUAN CADon 07-16-2022 MG MAMM SCREEN 3D JUAN CAD Patient: MONET MONTANEZ Exam Date: 07/16/2022 : 1960 Gender:F Ordering : DR GINNY BARNETT . Admission #: [id number] Family : Order #: [id number] CLICK HERE TO VIEW EXAM RADIOLOGY REPORT [...] cancer at age 59. LOCATION: [facility] BREAST COMPOSITION: Scattered areas fibroglandular density. [...] Watson M.D. on 07/16/2022 at 16:18 Normal [facility] XR LSPINE MIN 4 VIEWSon 03-0 XR [...] by: STEVENSON WATSON Date: 2022-07-03 16:36 Normal [facility] Quick Fluon 08-06-2021 FLUAV Ab CF (S) [Titer] Negative [facility] Other FLUBV Ab CF (S) [Titer] neagtive [facility] [employer] [facility] Other Coding Summary.on 06-23-2019 Coding Summary. CODING DATE: 06/23/2019 [facility] STATUS: Home (Routine DC) PAYOR: [facility] [place] ADMIT DX: REASON FOR VISIT DX: Z09 Encounter for follow-up examination after completed treatment for conditions other than malignant neoplasm FINAL DX: PRINCIPAL: Z09 Encounter for follow-up examination after completed treatment for conditions other than malignant neoplasm SECONDARY: M54.2 Cervicalgia G43.909 Migraine, unspecified, not intractable, without status migrainosus Z79.899 Other group home (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 However, the narrative phrase printed from the coding software may appear abbreviated, or result in slightly different terminology. Coded By: Moraima Jessica CphT Date Saved: 06/23/2019 10:03 am Normal [facility] Consultation Noteon 06-22-19 Consultation Note Patient: [...] All Problems HTN (hypertension) / SNOMED CT 4818238850 / Confirmed Migraine headache / SNOMED CT 30963984 / Confirmed Pelvic kidney / SNOMED CT 05188401 / Confirmed Histories Past Medical History: No active or resolved past medical history items have been selected or recorded. Family History: No family history items have been selected or recorded. Procedure history: Cholecystectomy (SNOMED CT 91660591). Comments: 06/22/2019 14:50 EST - Day Anel MEDINA 1994 Dr Morgan @[place] Tubal ligation (SNOMED CT 320615430). Comments: 06/22/2019 14:51 EST - Day Anel MEDINA 1993 [place] Temporal artery biopsy (SNOMED CT 2448275655). Comments: 06/22/2019 14:51 EST - Day Anel [...] office on a as needed basis. Normal [facility] Comment on above: Result Comment: Elec tronically Signed By: Cynthia VALDEZ, Jane\.br\Date and Time Signed: 06/22/19 15:45 EST\.br\Electronically Co-Signed By: vAery BHAKTA, Willis Ann\.br\Date and Time Co-Signed: 06/23/19 00:38 EST Follicle Stim. Hormon 2018 Follicle Stim. Horm 33.4 U/L Normal 25.8-134.8 [facility] Comment on above: Result Comment: Refe rence Range: Male: 1.5-12.4 Ovulating Female: Follicular Phase 3.5-12.5 Ovulation Phase 4.7-21.5 Luteal Phase 1.7-7.7 Postmenopausal Female: 25.8-134.8 Performed By: #### F SH #### [facility] [employer] [address] [place] [address] Certified Nurse Midwife: Ky Estrada MD Follicle Stimulating Hormone on 01-05-2019 FSH 33.4 U/L 25.8 - 134.8 U/L [place] Comment on above: Reference Range: Male: 1.5-12.4 Ovulating Female: Follicular Phase 3.5-12.5 Ovulation Phase 4.7-21.5 Luteal Phase 1.7-7.7 Postmenopausal Female: 25.8-134.8 US PELVIS COMPLETEon 019 US PELVIS COMPLETE EXAMINATION: Ultrasound pelvis complete 10/06/2018 TECHNIQUE: Transabdominal and transvaginal pelvic ultrasound was performed. COMPARISON: CT abdomen and pelvis May 01, 2017 HISTORY: Postmenopausal bleeding Radar Technician indicates irregular postmenopausal bleeding FINDINGS: Measurements: Uterus: [...] Pierre Zamarripa MD 10/06/18 Final result Normal [facility] Cytologyon 09-30-2018 Cytology (NOTE) [id number] [employer] [facility] ANATOMIC PATHOLOG[facility] [address] [place], [place] [address] GYNECOLOGIC CYTOLOGY REPORT Patient Name: MONET MONTANEZ MR#: [id number] Specimen #[id number] Source: 1: Cervical material, (ThinPrep vial, Imaging-assisted review) Clinical History N95.0 Postmenopausal bleeding High Risk HPV DNA testing is requested if the diagnosis is ASC-US LMP: 09/14/18 INTERPRETATION Cervical material, (ThinPrep vial, Imaging-assisted review): Specimen Adequacy: Satisfactory for evaluation. - Endocervical/transfor mation zone component present. Descriptive Diagnosis: Negative for intraepithelial lesion or malignancy. Biological Chemist: SERGIO Boland(ASCP) Electronically Signed Out /10/06/2018 [facility] Comment on above: Performed By: #### P PPVP #### [facility] [address] [address] Certified Nurse Midwife: MD George Lopez 08-19-2018 CNCO Letter Text [facility] CNOVon 08-19-2018 CNOV Office Visit (JUANITO ) MONET MONTANEZ ([id number]) 1960 F Date Time Provider Department 08/19/18 11:00 AM ANEL ROBB During your visit today, we recorded the following information about you: Pulse Blood pressure Weight Height 83/minute 140/93 108.4 kg 1.676 m Anel Robb MD 08/19/2018 12:22 PM Signed Mabel Galvan MD (C) [address] [facility] [address] PCP: Mabel Galvan MD Accompanied by: Self [...] and MRI neck.- reviewd and uploaded to [facility] Records reviewed: yes Family History: FAMILY HISTORY [...] in rate, volume and articulation. 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 IHS diagnosis based on current history and exam: (G44.51) Hemicrania continua (primary encounter diagnosis) Plan: Discussed all options for treatment. Please obtain generic omeprazole (20 mg) [[employer], [employer], [employer], etc] and start one daily. You [...] pain, and counseling about diet, medications, and group home implications. The patient has my contact information and my chart sign up information. MD Anel Wong MD 08/19/2018 11:44 AM Signed Week 1: -Please obtain generic omeprazole (20 mg) [[employer], [employer], [employer], etc] and start one daily. You [...] ensuing treatment plans will be released via Tryouts and discussed during your follow-up appointment. Follow-up appointments are primarily provided by the Nurse Practioners and Physician?s Assistants in order to provide timely, accessible care. MyChart: Please ask the schedulers to give you an activation code. The main way of communication is by Knowlarity Communicationshart rather than phone lines, so if you have not signed up, please do so. TrendBentt is also the way that you can review your labs and testing. We are not able to contact everyone to tell them results are normal. If you do not hear back from us regarding testing you have had, it should be considered normal or within normal range. If you have any questions about the results, you are free to message us. ? TrendBentt is meant for simple questions regarding medications, possible side effects, or other simple straight forward questions in limited sentences, rather than multiple paragraphs of discussion. Tryouts is not meant for, or efficient for [...] WEBCAM CONNECTED: 1. Go to the URL: [email or web address] 2. Click on Sign Up and Create a patient account for yourself. 3. Please also follow the links to ?Test My Computer?. 4. Follow the steps suggested, testing your Internet Speed, Webcam, Microphone, Speaker, and your video software. 5. Please make sure your video software is up-to-date. This is a safe, [facility] approved download, and will not harm your computer. ? ON AN IPHONE, IPAD, OR ANDROID DEVICE: 1. Open up the Sylvester Store or [employer] Grouptore and search [facility] Wedivite Online. 2. Download and Install the Application. 3. Tap on Sign Up and create a patient account for yourself. 4. Please use an e-mail address that you frequently check, as you will receive an e-mail appointment from [facility] [employer]. ? Find our user guide, here: [email or web address] ? Important: Don?t forget your password you [...] connected to the provider. ? Please call [phone] prior to your visit if you have [...] your PCP/referring physician. Referring Provider: MABEL GALVAN [[id number]] Allergies As of Date: 08/19/2018 Noted Allergy [...] 1: -Please obtain generic omeprazole (20 mg) [[employer], [employer], [employer], etc] and start one daily. You [...] ensuing treatment plans will be released via Tryouts and discussed during your follow-up appointment. Follow-up appointments are primarily provided by the Nurse Practioners and Physician?s Assistants in order to provide timely, accessible care. Knowlarity Communicationshart: Please ask the schedulers to give you an activation code. The main way of communication is by Knowlarity Communicationshart rather than phone lines, so if you have not signed up, please do so. TrendBentt is also the way that you can review your labs and testing. We are not able to contact everyone to tell them results are normal. If you do not hear back from us regarding testing you have had, it should be considered normal or within normal range. If you have any questions about the results, you are free to message us. ? TrendBentt is meant for simple questions regarding medications, possible side effects, or other simple straight forward questions in limited sentences, rather than multiple paragraphs of discussion. Tryouts is not meant for, or efficient for [...] WEBCAM CONNECTED: 1. Go to the URL: [email or web address] [email or web address] 2. Click on Sign Up and Create a patient account for yourself. 3. Please also follow the links to ?Test My Computer?. 4. Follow the steps suggested, testing your Internet Speed, Webcam, Microphone, Speaker, and your video software. 5. Please make sure your video software is up-to-date. This is a safe, [facility] approved download, and will not harm your computer. ? ON AN IPHONE, IPAD, OR ANDROID DEVICE: 1. Open up the Sylvester Store or NanoH2O and search [facility] Online. 2. Download and Install the Application. 3. Tap on Sign Up and create a patient account for yourself. 4. Please use an e-mail address that you frequently check, as you will receive an e-mail appointment from [facility]. ? Find our user guide, here: [email or web address] ? Important: Don?t forget your password you [...] connected to the provider. ? Please call [phone] prior to your visit if you have [...] by ANEL ROBB MD on 08/19/18 Normal [facility] HISTORY PHYSICALon HISTORY PHYSICAL HNO ID: [id number] Author: Anel Robb Service: ? Author Type: Physician Type: HANDP Filed: 08/19/2018 12:22 PM Note Text: Mabel Galvan MD ([facility]) [address] [facility] [address] PCP: Mabel Galvan MD Accompanied by: Self [...] and MRI neck.- reviewd and uploaded to [facility] Records reviewed: yes Family History: FAMILY HISTORY [...] rate, volume and articulation. 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 IHS diagnosis based on current history and exam: (G44.51) Hemicrania continua (primary encounter diagnosis) Plan: Discussed all options for treatment. Please obtain generic omeprazole (20 mg) [[employer], incred[employer]'s, [employer], etc] and start one daily. [...] and counseling about diet, medications, and terminal carman implications. The patient has my contact information and my chart sign up information. Anel Robb MD [facility] MR-MR angio head wo con IMPO RTon 05-25-2018 MR-MR angio head wo con IMPORT Images were obtained outside of [facility] [id number] N [facility] ND-MRI BRAIN WO CON IMPORTon 02-25-2018 ND-MRI BRAIN WO CON IMPORT Images were obtained outside of [facility] [id number] N [facility] ND-MRI C-SPINE WO CON IMPORT on 02-25-2018 ND-MRI C-SPINE WO CON IMPORT Images were obtained outside of [facility] [id number] N Normal [facility] Vital Signs Date Time Vital Sign Value Performing Clinician Facility 07-11-2023 16:24-0400 Body height 2011.68 cm [facility] 07-11-2023 16:24-0400 Body mass index (BMI) [Ratio] 0.3 kg/m2 [facility] 07-11-2023 16:24-0400 Body temperature 98.5 [degF] [facility] 07-11-2023 16:24-0400 Body weight 114.3 kg [facility] 07-11-2023 16:24-0400 Diastolic blood pressure 85 mm[Hg] [facility] 07-11-2023 16:24-0400 Heart rate 83 /min [facility] 07-11-2023 16:24-0400 Respiratory rate 18 /min [facility] 07-11-2023 16:24-0400 SaO2% (BldA) [Mass fraction] 95 % [facility] 07-11-2023 16:24-0400 Systolic blood pressure 148 mm[Hg] [facility] 02-03-2023 12:20-0400 Body height 167.64 cm Veronica Crocker Other [facility] [employer] Other 02-03-2023 12:20-0400 Body mass index (BMI) [Ratio] 40.31 kg/m2 Veronica Crocker Other [facility] [employer] Other 02-03-2023 12:20-0400 Body temperature 99.4 [degF] Veronica Crocker Other [facility] Other 02-03-2023 12:20-0400 Body weight 113.31 kg Veronica Crokcer Other [facility] Other 02-03-2023 12:20-0400 Diastolic blood pressure 88 mm[Hg] Veronica Lizzette Other [facility] Other 02-03-2023 12:20-0400 Respiratory rate 18 /min Veronica Lizzette Other [facility] Other 02-03-2023 12:20-0400 SaO2% (BldA) [Mass fraction] 96 % Veronica Lizzette Other [facility] Other 02-03-2023 12:20-0400 Systolic blood pressure 128 mm[Hg] Veronica Lizzette Other [facility] Other 11-03-2022 12:35-0400 Body height 167.64 cm Veronica Lizzette Other [facility] Other 11-03-2022 12:35-0400 Body mass index (BMI) [Ratio] 40.51 kg/m2 Veronica Lizzette Other [facility] Other 11-03-2022 12:35-0400 Body temperature 97.9 [degF] Veronica Lizzette Other [facility] Other 11-03-2022 12:35-0400 Body weight 113.85 kg Veronica Lizzette Other [facility] Other 11-03-2022 12:35-0400 Respiratory rate 18 /min Veronica Lizzette Other [facility] Other 11-03-2022 12:35-0400 SaO2% (BldA) [Mass fraction] 97 % Veronica Lizzette Other [facility] Other 09-09-2022 13:45-0400 Body height 167.64 cm Veronica Crocker Other [facility] Other 09-09-2022 13:45-0400 Body mass index (BMI) [Ratio] 40.51 kg/m2 Veronica Crocker Other [facility] Other 09-09-2022 13:45-0400 Body temperature 98 [degF] Veronica Crocker Other [facility] Other 09-09-2022 13:45-0400 Body weight 113.85 kg Veronica Crocker Other [facility] Other 09-09-2022 13:45-0400 Respiratory rate 16 /min Veronica Crocker Other [facility] Other 09-09-2022 13:45-0400 SaO2% (BldA) [Mass fraction] 97 % Veronica Crocker Other [facility] Other 07-07-2021 12:00-0500 Body height 167.64 cm Andie Blackault Other [facility] Other 07-07-2021 12:00-0500 Body mass index (BMI) [Ratio] 39.54 kg/m2 Andie Africa Other [facility] Other 07-07-2021 12:00-0500 Body temperature 97.8 [degF] Andie Africa Other [facility] Other 07-07-2021 12:00-0500 Body weight 111.13 kg Andie Africa Other [facility] Other 07-07-2021 12:00-0500 SaO2% (BldA) [Mass fraction] 93 % Andie Leger Other [facility] Other Encounters Encounter Date Encounter Type Care Provider Facility Start: 10-08-2023 End: 10-08-2023 ambulatory CARLINE KING Not Available Start: 07-11-2023 End: 07-11-2023 ambulatory [facility] Work Phone: Start: 07-11-2023 End: 07-11-2023 Patient encounter procedure [facility] Work Phone: Start: 02-03-2023 End: 02-03-2023 ambulatory Veronica Lizzette Other [facility] Other Start: 02-03-2023 Office outpatient visit 15 minutes Vreonica Lizzette [facility] Start: 11-05-2022 End: 11-05-2022 ambulatory Nidhi Croft Other [facility] Other Start: 11-05-2022 Telephone encounter Nidhi Croft [facility] Start: 11-03-2022 End: 11-03-2022 ambulatory Veronica Lizzette Other [facility] Other Start: 11-03-2022 Office outpatient visit 15 minutes Veronica Lizzette [facility] Start: 09-09-2022 End: 09-09-2022 ambulatory Veronica Lizzette Other [facility] Other Start: 09-09-2022 Office outpatient visit 15 minutes Veronica Lizzette [facility] Start: 07-19-2022 End: 07-20-[address] GINNY BARNETT . Facility: Start: 07-16-2022 End: 03-22-[address] GINNY BARNETT . Facility:[facility] Start: 07-03-2022 End: 07-04-[address] GINNY BARNETT . Facility:[facility] Start: 07-07-2021 End: 07-07-2021 ambulatory Andie Africa Other [place] [facility] Other Start: 07-07-2021 Office outpatient visit 15 minutes Andie Leger [facility] [place] Start: 01-05-2019 End: 01-06-2019 Patient encounter procedure PRISCILLA Rogers AMES [facility] Start: 01-05-2019 End: 01-05-2019 Subsequent hospital visit by physician Mabel Galvan [facility] Laboratory Comment on above: Irregular uterine bl eeding Start: 10-06-2018 End: 10-09-2018 Patient encounter procedure WILL [facility] Start: 09-30-2018 End: 2018 Patient encounter procedure [facility] Start: 08-19-2018 End: 08-20-2018 Patient encounter procedure ANEL ROBB [facility] Start: 07-17-2017 End: 07-18-2017 Ambulatory DEFAULT PHYSICIAN Facility:[facility] Procedures Date Procedure Procedure Detail Performing [...] - Td) DTaP/Tdap/Td vaccine (2 - Td) [place] Start: 2021 Colon cancer screen colonoscopy Colon cancer screen colonoscopy [place] Comment on above: Postponed from 10/01 (Not Indicated) Start: 09-30-2021 Cervical cancer screen Cervical canc er screen [place] Start: 2019 Lipid screen Lipid screen [place], [place] Comment on above: Postponed from 10/01 (Not Indicated) Start: 2019 Shingles Vaccine (1 of 2) Shingles Vaccine (1 of 2) [place] Comment on above: Postponed from 10/01 (Unavailable) Start: 01-26-2019 End: 01-26-2019 Office Visit 01/26/2019 Office Visit Obstetrics and Gynecology Priscilla Chacon, DO [address] [place] [id number] [facility] [employer] Start: 12-27-2018 Influenza vaccination Flu vaccine (# 1) [place] Start: 12-18-2018 Diabetes screen Diabetes screen [place], [place] Start: 12-17-2018 Breast cancer screen Breast cancer s creen [place] Immunizations Immunization Date Immunization Notes Care Provider Fa cility 10-18-2016 tetanus toxoid, redu oscar diphtheria toxoid, and acellular pertussis vaccine, adsorbed Mabel Galvan [place] Payers Date Payer Category Payer Unknown [employer] [address] xxxxxxxxxxxx 2016-Present [phone] [address] [place] [address] xxxxxxxxxxxx [id number] 1960 Unknown [id number] 1960 Unknown [id number] 1960 Unknown [id number] 1960 Unknown [id number] 1960 Unknown [id number] 1960 Unknown [id number] 1960 Unknown [id number] 9 1959 Unknown [id number] Self-pay Self Pay [id number] Unknown Social History Date Type Detail Facility Start: 01-05-2019 End: 07-11-2023 Tobacco smoking status NHIS Never smoker [facility] Start: 01-05-2019 [facility] Not on file [facility] (app) [employer] Start: 1960 Sex Assigned At Female [facility] Evaluation note 02-03-2023 Note Date & [...] no improvement in 2 to 3 days [facility] Other Evaluation note 11-03-2022 Note Date & [...] or fevers Oct, Bronchitis (ICD-10 - J40) [facility] Other Evaluation note 09-09-2022 Note Date & [...] no improvement in 2 to 3 days. [facility] Other Evaluation note 07-07-2021 Note Date & [...] weeks for the cough to go away [facility] Other Evaluation note 07-07-2021 Note Date & [...] weeks for the cough to go away [place] [facility] Other Evaluation note Note Date & Type Note Facility Evaluation note No Information [facility] [employer] Other Evaluation note Note Date & Type Note Facility Evaluation note Diagnosis Onset Date Bilateral otitis media nonea [facility] Work Phone: History general Narrative - Reported Note Date & Type Note Facility History general Narrative - Reported Type Medical History Fibroids Medical History degenerative disc disease Surgical History cholecystectomy 1994 Surgical History Btl 1993 Surgical History tonsilectomy 1967 Surgical History Temporal arterial biopsy 019 Hospitalization History Cholecystectomy 1994 Hospitalization History & Btl 1993 Hospitalization History 1985 Hospitalization History 1979 [facility] Other History general Narrative - Reported Note Date & Type Note Facility History general Narrative - Reported [place] [facility] Other Summary Purpose Family History No Family [...] FoundDocuments on File Type Date Recorded Patient Wrapper Counter Expl anation Advance Directives and Living Will Power of Autographer Advance Directive Response Recorded Date/ Time Advance Directives No May 20, 2018 4:07pm Assessments Diagnosis Irregular uterine bleeding Irregular menstrual cycle Chief Complaint and Reason for Visit Chief Complaint POSS LEFT EAR INFECT ION Reason for Visit Bilateral otitis med ia Additional Source Comments INFORMATION SOURCE (unrecogn ized section and content) DATE CREATED AUTHOR 10/17/2017 [facility] DATE CREATED AUTHOR AUTHOR'S ORGANIZ ATION 08/22/2018 [facility] DATE CREATED AUTHOR AUTHOR'S ORGANIZ ATION 01/05/2019 [facility] DATE CREATED AUTHOR AUTHOR'S ORGANIZ ATION 06/23/2019 Geovany Reese [facility] DATE CREATED AUTHOR AUTHOR'S ORGANIZ ATION 07/27/2022 [facility] DATE CREATED AUTHOR AUTHOR'S ORGANIZ ATION 10/09/2023 [facility] EPIC REASON FOR VISIT [...] BE BASED ON THE PRIMARY CLINICAL RECORDS. [facility] [employer] provides no warranty or guarantee of the accuracy or completeness of information in this document.
[2024-01-19 10:58] LABS: Basophils Percent Auto 0.8 % (0.2-2.0); Eosinophils Absolute Auto 0.1 10^3/uL (0.0-0.7); Eosinophils Percent Auto 2.5 % (0.9-7.0); Hematocrit 45.5 % (36.0-48.0); Hemoglobin 14.6 g/dL (12.0-16.0); Immature Granulocytes Abs Auto 0.01 10^3/uL (0.00-0.03); Immature Granulocytes Pct Auto 0.2 % (0.0-0.5); Lymphocytes Absolute Auto 1.5 10^3/uL (1.2-3.8); Mean Corpuscular HGB Conc 32.1 g/dL (29.9-35.2); Mean Corpuscular Hemoglobin 29.2 pg (26.7-34.0); Mean Platelet Volume 10.3 fL (9.5-13.5); Monocytes Absolute Auto 0.4 10^3/uL (0.3-0.8); Monocytes Percent Auto 8.3 % (1.7-12.0); Neutrophils Absolute Auto 2.8 10^3/uL (1.4-6.5); Neutrophils Percent Auto 57.2 % (43.0-75.0); Platelet Count 296 10^3/uL (150-450); Red Cell Distribution Width 14.7 % (11.0-15.0); White Blood Count 4.8 10^3/uL (4.0-11.0)
[2024-01-19 11:10] LABS: Free T3 2.43 pg/mL (2.18-3.98); Thyroid Stimulating Hormone 3.472 uIU/mL (0.358-3.740)
[2024-01-19 11:18] LABS: Free T4 1.14 ng/dL (0.76-1.46)
== END 2024-01-19 10:18 | disposition home or self-care (01) ==
LOC: LAB 10:21
PROVIDERS: PCP Family Medicine; Visit Provider Family Medicine
DX: E03.9 Hypothyroidism, unspecified (principal); D64.9 Anemia, unspecified
CPT/HCPCS: 36415; 84439; 84443; 84481; 85025

== ENCOUNTER 2024-07-10 12:33 | Emergency (ER) | payer BC, SELFPAY ==
[2024-07-10 12:38] VITALS: BP 136/82; PULSE 75; TEMP 36.7; O2SAT 97; BMI 37.1
--- OUTSIDE RECORDS SUMMARY | 2024-07-10 12:39 | XMS_ITS | CCD ---
Author Organization [facility] CliniSyoh Care Team Providers Care Cloth Pattern Maker Name Role Phone PHYSICIAN, DEFAULT Unavailable Unavailable PHYSICIAN, DEFAULT Unavailable Unavailable ANEL ROBB Attending Unavailable MABEL GALVAN Referring Unavailable PRISCILLA CHACON Referring Unavail able MABEL GALVAN Primary Care Unavailable WILL TINOCO Referring Unavailkahlil e COLE, MABEL Primary Care Unavailable WILL TINOCO Referring Unavailabl e COLE, MABEL Primary Care Unavailable Mabel Galvan Primary Care Provider [phone] Andie Leger Unavailable ERICKA Phillips, DR GROSS [...] Nidhi Croft Unavailable CARLINE KING Attending Unavailable OLINDA HAND Attending Unavailable Allergies Allergy Classification Reported Allergen(s) Allergy Type Date of Onset Reaction(s) Facility (1 source) Penicillin; Translations: [PENICILLIN] Drug Allergy 07-25-19 18 [facility] Repository (3 sources) Penicillins; Translations: [PENICILLINS] Propensity to adverse reactions to drug 12-07-19 [place], [place] (7 sources) Sulfamethoxazole / Trimethoprim Drug Allergy 02-19-20 17 Nausea And Vomiting [place], [place] (7 sources) Penicillin G Drug Allergy 07-11-19 24 hives [facility] (1 source) Penicillins Drug allergy (disorder) 10-17-19 16 [facility] (2 sources) Cephalexin Drug Allergy rash [employer] Other (1 source) Cephalexin Drug Allergy 07-11-19 24 rash [facility] (1 source) Sulfamethoxazole Drug Allergy 07-11-19 24 nausea and vomiting [facility] (1 source) Trimethoprim Drug Allergy 07-11-19 24 nausea and vomiting [facility] Medications Current Medications Medication Drug Class(es) Dates Sig (Normalized) Sig (Original) [id number] 200 actuat albuterol 0.09 mg/actuat metered dose [...] 2018 12:00am take 0.5 tablet by m out once daily at mealtime Metoprolol Tartrate 25 [...] Start: 12-31-2018 take 1 tablet by whit once daily tiZANidine (ZANAFLEX) 4 MG tablet Take 4 mg by mouth nightly 1 12/31/2018 Active tiZANidine HCl A ctive Completed/Discontinued Medications Medication Drug Class(es) Dates Sig (Normalized) Sig (Original) acetaminophen 325 mg / HYDROcodone bitartrate 5 mg oral tablet (1 source) Opioid Agonist Start: 10-17-2018 End: 07-11-2023 take 1 tablet by mouth every eight hours Hydrocodone-Acetam inophen ([place]) 5-325 mg tablet Discontinued 1 TAB PO [...] without thyrotoxic crisis or storm] 07-11-2023 Chronic Unclassified (2 sources) New Patient; Translations: [New Patient] Onset: 01-23-2024 Past or Other Problems Problem Classification Problem Date Documented Da te Episodic/Chronic 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; 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] Onset: 05-01-2017 05-01-2017 Episodic Unclassified (2 sources) Cough R05.9 Onset: 07-07-2021 Resolved: 07-07-2021 Results Test Name Value Interpretation Reference Range Facility Office Visiton 01-23-2024 Follow-up visit [id number] Monet Montanez 1960 F Date Provider Department Center 01/23/2024 [id number] HAND CARD [facility] Family History Problem Relation Age of Onset No Known Problems Mother No Known Problems Father Family Status - Relation Status Age at Mother Father Level of Service:78736 CT OFFICE/OUTPATIENT NEW MODERATE MDM 45 MINUTES Reason for Visit and Comments: New Patient [632] - Pt is having palpatations, and chest pain. Dr Trammell Referral. Normal [facility] MRI LSPINE WO CONon 07-20-19 MRI LSPINE [...] STEVENSON WATSON Date: 2022-07-19 15:[address] [facility] MAMM SCREEN 3D JUAN CADon 07-16-2022 MG MAMM SCREEN 3D JUAN CAD Patient: MONET MONTANEZ Exam Date: 07/16/2022 : 1960 Gender:F Ordering : DR GINNY TRAMMELL . Admission #: [id number] Family : Order #: [id number] CLICK HERE TO VIEW EXAM RADIOLOGY REPORT [...] with lymohoma cancer at age 59. LOCATION: [facility] BREAST COMPOSITION: Scattered areas fibroglandular density. [...] Watson M.D. on 07/16/2022 at 16:18 Normal [facility] XR LSPINE MIN 4 VIEWSon 03-0 [...] by: STEVENSON WATSON Date: 2022-07-03 16:36 Normal [facility] Quick Fluon 08-06-2021 FLUAV Ab CF (S) [Titer] Negative [employer] Other FLUBV Ab CF (S) [Titer] neagtive [employer] Other Coding Summary.on 06-23-2019 Coding Summary. CODING DATE: 06/23/2019 FINAL [facility] STATUS: Home (Routine DC) PAYOR: [facility] [place] ADMIT DX: REASON FOR VISIT DX: Z09 Encounter for follow-up examination after completed treatment for conditions other than malignant neoplasm FINAL DX: PRINCIPAL: Z09 Encounter for follow-up examination after completed treatment for conditions other than malignant neoplasm SECONDARY: M54.2 Cervicalgia G43.909 Migraine, unspecified, not intractable, without status migrainosus Z79.899 Other joint terminal attack controller (current) drug therapy [facility] PROC APC STAT DESCRIPTION DOCTOR NAME DATE NOTE: The code number assigned matches the documented diagnosis and / or procedure in the patient's chart. However, the narrative phrase printed from the coding software may appear abbreviated, or result in slightly different terminology. 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 Family History: No family history items have been selected or recorded. Procedure history: Cholecystectomy (SNOMED CT 10057631). Comments: 06/22/2019 14:50 EST - Day Anel MEDINA [address] Dr Morgan @Driver Tubal ligation (SNOMED CT 352281116). Comments: 06/22/2019 14:51 EST - Day Anel MEDINA 1993 [facility] Temporal artery biopsy (SNOMED CT 5628405271). Comments: 06/22/2019 14:51 EST - Day Anel [...] office on a as needed basis. Normal [facility] Comment on above: Result Comment: Elec tronically Signed By: Jane Marie PA-C\.br\Date and Time Signed: 06/22/19 15:45 EST\.br\Electronically Co-Signed By: Willis Varela MD\.br\Date and Time Co-Signed: 06/23/19 00:38 EST Follicle Stim. Hormon 2018 Follicle Stim. Horm 33.4 U/L Normal 25.8-134.8 [facility] Comment on above: Result Comment: Refe rence Range: Male: 1.5-12.4 Ovulating Female: Follicular Phase 3.5-12.5 Ovulation Phase 4.7-21.5 Luteal Phase 1.7-7.7 Postmenopausal Female: 25.8-134.8 Performed By: #### F #### [facility] [address] [place] [address] Commercial Mortgage Broker: Ky Estrada MD Follicle Stimulating Hormone on 01-05-2019 FSH 33.4 U/L 25.8 - 134.8 U/L [place], [place] Comment on above: Reference Range: Male: 1.5-12.4 Ovulating Female: Follicular Phase 3.5-12.5 Ovulation Phase 4.7-21.5 Luteal Phase 1.7-7.7 Postmenopausal Female: 25.8-134.8 US PELVIS COMPLETEon 019 US PELVIS COMPLETE EXAMINATION: Ultrasound pelvis complete 10/06/2018 TECHNIQUE: Transabdominal and transvaginal pelvic ultrasound was performed. COMPARISON: CT abdomen and pelvis May 01, 2017 HISTORY: Postmenopausal bleeding Alternative Dispute Resolution Mediator indicates irregular postmenopausal bleeding FINDINGS: Measurements: Uterus: [...] Jean Pierre Zamarripa MD 10/06/18 Final result [facility] Cytologyon 09-30-2018 Cytology (NOTE) [id number] [employer] [facility] ANATOMIC PATHOLOGY [address] [place] [id number] GYNECOLOGIC CYTOLOGY REPORT Patient Name: MONET MONTANEZ MR#: [id number] Specimen #[id number] Source: 1: Cervical material, (ThinPrep vial, Imaging-assisted review) Clinical History N95.0 Postmenopausal bleeding High Risk HPV DNA testing is requested if the diagnosis is ASC-US LMP: 09/14/18 INTERPRETATION Cervical material, (ThinPrep vial, Imaging-assisted review): Specimen Adequacy: Satisfactory for evaluation. - Endocervical/transfor mation zone component present. Descriptive Diagnosis: Negative for intraepithelial lesion or malignancy. Calender Worker Helper: SERGIO Boland(ASCP) Electronically Signed Out bill/10/06/2018 [facility] Comment on above: Performed By: #### P PPVP #### [facility] [address] [place] [id number] Commercial Mortgage Broker: MD George Lopez 08-19-2018 CNCO Letter Text Normal [facility] CNOVon 08-19-2018 CNOV Office Visit (NEHAMN ) MONET MONTANEZ ([id number]) 1960 F Date Time Provider Department 08/19/18 11:00 AM ANEL ROBB During your visit today, we recorded the following information about you: Pulse Blood pressure Weight Height 83/minute 140/93 108.4 kg 1.676 m Anel Robb MD 08/19/2018 12:22 PM Signed Mabel Galvan MD ([facility]) [address] [facility] [address] PCP: Mabel Galvan MD Accompanied by: Self [...] and MRI neck.- reviewd and uploaded to [facility] Records reviewed: yes Family History: [...] in rate, volume and articulation. 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 IHS diagnosis based on current history and exam: (G44.51) Hemicrania continua (primary encounter diagnosis) Plan: Discussed all options for treatment. Please obtain generic omeprazole (20 mg) [Pressable, iSyndica's, Abad's Club, etc] and start one daily. [...] pain, and counseling about diet, medications, and joint terminal attack controller implications. The patient has my contact information and my chart sign up information. MD Anel Wong MD 08/19/2018 11:44 AM Signed Week 1: -Please obtain generic omeprazole (20 mg) [Pressable, iSyndica's, Keepy's Club, etc] and start one daily. You [...] ensuing treatment plans will be released via Netsocket and discussed during your follow-up appointment. Follow-up appointments are primarily provided by the Nurse Practioners and Physician?s Assistants in order to provide timely, accessible care. MyChart: Please ask the schedulers to give you an activation code. The main way of communication is by MarkTheGlobehart rather than phone lines, so if you have not signed up, please do so. Reds10t is also the way that you can review your labs and testing. We are not able to contact everyone to tell them results are normal. If you do not hear back from us regarding testing you have had, it should be considered normal or within normal range. If you have any questions about the results, you are free to message us. ? Reds10t is meant for simple questions regarding medications, possible side effects, or other simple straight forward questions in limited sentences, rather than multiple paragraphs of discussion. Reds10t is not meant for, or efficient for these complex questions, extensive questions, extensive medication adjustments, complex new symptoms or concerns. These issues beyond simple questions require a follow up visit with myself, one of our physician assistants, nurse practitioners, or a Virtual Visit via computer or smart phone, as detailed further down. Virtual Visit: You can use our new mobile (Xtellushone or Android) or computer MyCare Online appointment. The MyCare Online appointment is fast, easy and confidential. The benefits include no waiting in the lobby, no travel and parking costs, no facility fee and no co-pay. The cost is $55. The schedulers can provide you with details regarding [facility] Online. This service, [facility], is easily accessible through your mobile device or a desktop/laptop with a browser and internet connection. ? HOW DO I GET STARTED? ? ON A DESKTOP OR LAPTOP COMPUTER WITH A WEBCAM CONNECTED: 1. Go to the URL: [email or web address] 2. Click on Sign Up and Create a patient account for yourself. 3. Please also follow the links to ?Test My Computer?. 4. Follow the steps suggested, testing your Internet Speed, Webcam, Microphone, Speaker, and your video software. 5. Please make sure your video software is up-to-date. This is a safe, [facility] approved download, and will not harm your computer. ? ON AN IPHONE, IPAD, OR ANDROID DEVICE: 1. Open up the Sylvester Store or [employer] Technologies and search [facility] [employer] Care Online. 2. Download and Install the Application. 3. Tap on Sign Up and create a patient account for yourself. 4. Please use an e-mail address that you frequently check, as you will receive an e-mail appointment from [facility] [employer] Care Online. ? Find our user guide, here: [email or web address] ? Important: Don?t forget your password you [...] connected to the provider. ? Please call [phone] prior to your visit if you have [...] your PCP/referring physician. Referring Provider: MABEL GALVAN [[id number]] Allergies As of Date: 08/19/2018 Noted Allergy [...] 1: -Please obtain generic omeprazole (20 mg) [[employer]co, iSyndica's, Abad's Club, etc] and start one daily. [...] ensuing treatment plans will be released via Netsocket and discussed during your follow-up appointment. Follow-up appointments are primarily provided by the Nurse Practioners and Physician?s Assistants in order to provide timely, accessible care. Reds10t: Please ask the schedulers to give you an activation code. The main way of communication is by MarkTheGlobehart rather than phone lines, so if you have not signed up, please do so. Reds10t is also the way that you can review your labs and testing. We are not able to contact everyone to tell them results are normal. If you do not hear back from us regarding testing you have had, it should be considered normal or within normal range. If you have any questions about the results, you are free to message us. ? MyChart is meant for simple questions regarding medications, possible side effects, or other simple straight forward questions in limited sentences, rather than multiple paragraphs of discussion. MyChart is not meant for, or efficient for [...] new mobile (iPhone or Android) or computer [facility] appointment. The [facility] appointment is fast, easy and confidential. The benefits include no waiting in the lobby, no travel and parking costs, no facility fee and no co-pay. The cost is $55. The schedulers can provide you with details regarding [facility]. This service, Findline Online, is easily accessible through your mobile device or a desktop/laptop with a browser and internet connection. ? HOW DO I GET STARTED? ? ON A DESKTOP OR LAPTOP COMPUTER WITH A WEBCAM CONNECTED: 1. Go to the URL: [email or web address] 2. Click on Sign Up and Create a patient account for yourself. 3. Please also follow the links to ?Test My Computer?. 4. Follow the steps suggested, testing your Internet Speed, Webcam, Microphone, Speaker, and your video software. 5. Please make sure your video software is up-to-date. This is a safe, [facility] approved download, and will not harm your computer. ? ON AN IPHONE, IPAD, OR ANDROID DEVICE: 1. Open up the Sylvester Store or Trellis Automationtore and search [facility] Findline Online. 2. Download and Install the Application. 3. Tap on Sign Up and create a patient account for yourself. 4. Please use an e-mail address that you frequently check, as you will receive an e-mail appointment from [facility] Findline Online. ? Find our user guide, here: [email or web address] ? Important: Don?t forget your password you [...] connected to the provider. ? Please call [phone] prior to your visit if you have [...] by ANEL ROBB MD on 08/19/18 Normal [facility] HISTORY PHYSICALon 9 HISTORY PHYSICAL HNO ID: [id number] Author: Anel Robb Service: ? Author Type: Physician Type: HANDP Filed: 08/19/2018 12:22 PM Note Text: Mabel Galvan MD ([facility]) [address] [facility] [address] PCP: Mabel Galvan MD Accompanied by: Self [...] and MRI neck.- reviewd and uploaded to [facility] Records reviewed: yes Family History: [...] in rate, volume and articulation. 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 IHS diagnosis based on current history and exam: (G44.51) Hemicrania continua (primary encounter diagnosis) Plan: Discussed all options for treatment. Please obtain generic omeprazole (20 mg) [Pressable, Flexion, Connexient Club, etc] and start one daily. You [...] pain, and counseling about diet, medications, and mcfp implications. The patient has my contact information and my chart sign up information. Anel Robb MD Normal [facility] MR-MR angio head wo con IMPO RTon 05-25-2018 MR-MR angio head wo con IMPORT Images were obtained outside of [facility] [id number] N Normal [facility] CT-MRI BRAIN WO CON IMPORTon 02-25-2018 CT-MRI BRAIN WO CON IMPORT Images were obtained outside of [facility] [id number] N Normal [facility] CT-MRI C-SPINE WO CON IMPORT on 02-25-2018 CT-MRI C-SPINE WO CON IMPORT Images were obtained outside of [facility] [id number] N Normal [facility] Vital Signs Date Time Vital Sign Value Performing Clinician Facility 07-11-2023 16:24-0400 Body height 2011.68 cm [facility] 07-11-2023 16:24-0400 Body mass index (BMI) [Ratio] 0.3 kg/m2 [facility] 07-11-2023 16:24-0400 Body temperature 98.5 [degF] [facility] 07-11-2023 16:24-0400 Body weight 114.3 kg [facility] 07-11-2023 16:24-0400 Diastolic blood pressure 85 mm[Hg] [facility] 07-11-2023 16:24-0400 Heart rate 83 /min [facility] 07-11-2023 16:24-0400 Respiratory rate 18 /min [facility] 07-11-2023 16:24-0400 SaO2% (BldA) [Mass fraction] 95 % [facility] 07-11-2023 16:24-0400 Systolic blood pressure 148 mm[Hg] [facility] 02-03-2023 12:20-0400 Body height 167.64 cm Veronica Crocker Other [employer] Other 02-03-2023 12:20-0400 Body mass index (BMI) [Ratio] 40.31 kg/m2 Veronica Lizzette Other [employer] Other 02-03-2023 12:20-0400 Body temperature 99.4 [degF] Veronica Lizzette Other [employer] Other 02-03-2023 12:20-0400 Body weight 113.31 kg Veronica Lizzette Other [employer] Other 02-03-2023 12:20-0400 Diastolic blood pressure 88 mm[Hg] Veronica Lizzette Other [employer] Other 02-03-2023 12:20-0400 Respiratory rate 18 /min Veronica Lizzette Other [employer] Other 02-03-2023 12:20-0400 SaO2% (BldA) [Mass fraction] 96 % Veronica Lizzette Other [employer] Other 02-03-2023 12:20-0400 Systolic blood pressure 128 mm[Hg] Veronica Lizzette Other [employer] Other 11-03-2022 12:35-0400 Body height 167.64 cm Veronica Lizzette Other [employer] Other 11-03-2022 12:35-0400 Body mass index (BMI) [Ratio] 40.51 kg/m2 Veronica Lizzette Other [employer] Other 11-03-2022 12:35-0400 Body temperature 97.9 [degF] Veronica Lizzette Other [employer] Other 11-03-2022 12:35-0400 Body weight 113.85 kg Veronica Kylemond Other [employer] Other 11-03-2022 12:35-0400 Respiratory rate 18 /min Veronica Lizzette Other [employer] Other 11-03-2022 12:35-0400 SaO2% (BldA) [Mass fraction] 97 % Veronica Lizzette Other [employer] Other 09-09-2022 13:45-0400 Body height 167.64 cm Veronica Lizzette Other [employer] Other 09-09-2022 13:45-0400 Body mass index (BMI) [Ratio] 40.51 kg/m2 Veronica Lizzette Other [employer] Other 09-09-2022 13:45-0400 Body temperature 98 [degF] Veronica Lizzette Other [employer] Other 09-09-2022 13:45-0400 Body weight 113.85 kg Veronica Lizzette Other [employer] Other 09-09-2022 13:45-0400 Respiratory rate 16 /min Veronica Lizzette Other [employer] Other 09-09-2022 13:45-0400 SaO2% (BldA) [Mass fraction] 97 % Veronica Lizzette Other [employer] Other 07-07-2021 12:00-0500 Body height 167.64 cm Andie Leger Other [employer] Other 07-07-2021 12:00-0500 Body mass index (BMI) [Ratio] 39.54 kg/m2 Andie Leger Other [employer] Other 07-07-2021 12:00-0500 Body temperature 97.8 [degF] Andie Leger Other [employer] Other 07-07-2021 12:00-0500 Body weight 111.13 kg Andie Leger Other [employer] Other 07-07-2021 12:00-0500 SaO2% (BldA) [Mass fraction] 93 % Andie Leger Other [employer] Other Encounters Encounter Date Encounter Type Care Provider Facility Start: 01-23-2024 End: 01-23-2024 ambulatory [facility] Start: 10-08-2023 End: 10-08-2023 ambulatory CARLINE KING Not Available Start: 07-11-2023 End: 07-11-2023 ambulatory [facility] Work Phone: Start: 07-11-2023 End: 07-11-2023 Patient encounter procedure [facility] Work Phone: Start: 02-03-2023 End: 02-03-2023 ambulatory Veronica Crocker Other [employer] Other Start: 02-03-2023 Office outpatient visit 15 minutes Veronica Crocker [facility] Start: 11-05-2022 End: 11-05-2022 ambulatory Nidhi Croft Other [employer] Other Start: 11-05-2022 Telephone encounter Nidhi Croft [facility] Start: 11-03-2022 End: 11-03-2022 ambulatory Veronica Lizzette Other [employer] Other Start: 11-03-2022 Office outpatient visit 15 minutes Veronica Lizzette [facility] Start: 09-09-2022 End: 09-09-2022 ambulatory Veronica Lizzette Other [employer] Other Start: 09-09-2022 Office outpatient visit 15 minutes Veronica Lizzette [facility] Start: 07-19-2022 End: 07-20-[address] GINNY TRAMMELL . Facility: Start: 07-16-2022 End: 07-17-[address] GINNY TRAMMELL . Facility: Start: 07-03-2022 End: 07-04-[address] GINNY TRAMMELL . Facility: Start: 07-07-2021 End: 07-07-2021 ambulatory Andie Leger Other [employer] Other Start: 07-07-2021 Office outpatient visit 15 minutes Andie Leger [facility] Start: 01-05-2019 End: 01-06-2019 Patient encounter procedure PRISCILLA CRISTOBAL [facility] Start: 01-05-2019 End: 01-05-2019 Subsequent hospital visit by physician Mabel PEÑA Laboratory Comment on above: Irregular uterine bl eeding Start: 10-06-2018 End: 10-09-2018 Patient encounter procedure WILL [facility] Start: 09-30-2018 End: 2018 Patient encounter procedure WILL [facility] Start: 08-19-2018 End: 08-20-2018 Patient encounter procedure ANEL Leah ROBB [facility] Start: 07-17-2017 End: 07-18-2017 Ambulatory DEFAULT PHYSICIAN Facility:[facility] Procedures Date Procedure Procedure Detail Performing Clinician Start: 01-05-2019 Gonadotropin follicl e stimulating hormone PRISCILLA SUSU AMES Start: 01-05-2019 Gonadotropin follicl e stimulating hormone Priscilla Ames Work Phone: Start: 10-06-2018 Us pelvic nonobstetr ic real-time image complete PRISCILLA AMES Start: 09-30-2018 Screen pap by bree AMES Plan of Treatment Date Care Activity Detail Author Start: 10-18-2026 DTaP/Tdap/Td vaccine (2 - Td) DTaP/Tdap/Td vaccine (2 - Td) [place], [place] Start: 2021 Colon cancer screen colonoscopy Colon cancer screen colonoscopy [place], [place] Comment on above: Postponed from 10/01 (Not Indicated) Start: 09-30-2021 Cervical cancer screen Cervical canc er screen [place], [place] Start: 2019 Lipid screen Lipid screen [place], [place] Comment on above: Postponed from 10/01 (Not Indicated) Start: 2019 Shingles Vaccine (1 of 2) Shingles Vaccine (1 of 2) [place], [place] Comment on above: Postponed from 10/01 (Unavailable) Start: 01-26-2019 End: 01-26-2019 Office Visit 01/26/2019 Office Visit Obstetrics and Gynecology Priscilla Chacon, DO [address] [place] [address] [facility] TITLE INSURANCE AGENT Start: 12-27-2018 Influenza vaccination Flu vaccine (# 1) [place], [place] Start: 12-18-2018 Diabetes screen Diabetes screen [place], [place] Start: 12-17-2018 Breast cancer screen Breast cancer s creen [place], [place] Immunizations Immunization Date Immunization Notes Care Provider Fa landyty 10-18-2016 tetanus toxoid, redu oscar diphtheria toxoid, and acellular pertussis vaccine, adsorbed Mabel Galvan [place], [place] Payers Date Payer Category Payer Unknown [employer] [address] xxxxxxxxxxxx 2016-Present [phone] [address] [place] [address] xxxxxxxxxxxx [id number] 1960 Unknown [id number] 1960 Unknown [id number] 1960 Unknown [id number] 1960 Unknown [id number] 1960 Unknown [id number] 1960 Unknown [id number] 1960 Unknown [id number] 9 1958 Unknown [id number] Self-pay Self Pay [id number] Unknown Social History Date Type Detail Facility Start: 01-05-2019 End: 07-11-2023 Tobacco smoking status NMIS Never smoker [facility] Start: 01-05-2019 Alcohol intake No [place], [place] Sex Assigned At Not on file [place], [place] Start: 1960 Sex Assigned At Female F [facility] Progress note 01-23-2024 Note Date & Type Note Facility 01-23-2024 Note [facility] Note Reason for cardiology consult: Chest pain and fast heart rate Chief Complaint: No current complaint HPI: Monet Montanez is a 63 y.o. female without prior cardiac history. She has history of hypertension, obesity, and sleep apnea. She herself denies history of hyperlipidemia or diabetes mellitus. She never been a smoker. The patient states that on 11/2023 and during driving home she had sudden onset of mid chest sharp pain which increased with breathing therefore she went to the emergency room and she was monitored in [facility]. Her EKG and labs were normal. She underwent treadmill stress nuclear test which was normal. Before that patient started a weight loss program following appropriate diet, exercising and bicycling every day for about more than 1 hour. Initially she had very fast heart rate even resting. She lost already 32 pounds over the last 3 months. Also her primary physician checked her iron level and it was low and after she took iron for 2 weeks her heart rate has been in the 50s to 60s and she exercises every day more than 1 hour and her heart rate only up to 110-120. She did not have any recurrence of chest pain. No recurrence of palpitations. Also, she was given a 7-day event monitor which showed sinus rhythm without significant arrhythmia but occasional sinus tachycardia Otherwise she denies any chest pain or shortness of breath at rest or with exertion. She denies orthopnea or paroxysmal nocturnal dyspnea or dizziness or syncope or near syncope. She used to have legs edema however it resolved after she lost weight She never been a smoker. She denies alcohol or illicit drugs Cardiology ROS: All systems were reviewed and they were negative except for the positive findings noted above in the history Past Medical History She has a past medical history of Hypertension and Sleep apnea. Surgical History She has a past surgical history that includes Gallbladder surgery and Tubal ligation. Social History She reports that she has never smoked. She has never used smokeless tobacco. She reports that she does not drink alcohol and does not use drugs. Family History Family History Problem Relation Name Age of Onset No Known Problems Mother No Known Problems Father Allergies Penicillins Medications Current Outpatient Medications: cyproheptadine (Periactin) 4 mg tablet, Take 4 mg by mouth., Disp: , Rfl: ferrous sulfate 325 (65 Fe) MG tablet, Take 325 mg by mouth with breakfast., Disp: , Rfl: metoprolol succinate XL (Toprol-XL) 25 mg 24 hr tablet, 25 mg., Disp: , Rfl: pantoprazole (ProtoNix) 40 mg EC tablet, Take 40 mg by mouth., Disp: , Rfl: tiZANidine (Zanaflex) 4 mg tablet, 4 mg., Disp: , Rfl: Last Recorded Vitals Visit Vitals BP 126/87 Pulse 56 Ht 1.676 m (5' 6 ) Wt 100 kg (221 lb) SpO2 98% BMI 35.67 kg/m??? Smoking Status Never BSA 2.16 m??? Physical Examination: GENERAL: alert and oriented x3, well developed, in no acute distress. HEAD: atraumatic, normocephalic. EYES: NADEEN, EOMI. NECK: trachea midline, no JVD present, no carotid bruits present. CARDIAC: S1, S2 present. RRR. No murmur, rubs, or gallops. RESPIRATORY: CTAB, no increased effort of breathing, no rales, rhonchi, or wheezing. ABDOMEN: soft, nontender, nondistended. EXTREMITIES: no lower extremity edema, peripheral pulses are 2+ bilaterally. No rash/skin discoloration present. NEURO: strength/sensation equal and symmetric in bilateral upper and lower extremities. PSYCH: appropriate mood, affect, and judgement. Labs: Labs 01/19/2024 White blood count 4.8, hemoglobin 14.6, hematocrit 45.5, platelets 296 TSH 3.47, free T41.24, free T32.43 Labs from 12/18/2023 Sodium 136, potassium 3.7, BUN 14, creatinine 0.76, GFR above 60, glucose 84, HbA1c 5.4%, calcium 9.2% Iron 39 Total bilirubin 0.6, AST 13, ALT 21, alk phos 92, total protein 7.2, albumin 3.2 Triglyceride 86, cholesterol 203, LDL 146, HDL 40 Last Images: EKG 11/28/2023 showed sinus bradycardia, heart rate 53 bpm otherwise normal EKG 7 day Holter monitor 12/18/2023 Reviewing the Holter in more details patient was in sinus tachycardia about 12% of the time and in sinus bradycardia 1% of the time, there was no PVCs at all, she had rare PACs with total #47 beats in isolated fashion. All asymptomatic Treadmill nuclear stress test 12/12/2023 Chest CTA 11/28/2023 IMPRESSION:No evidence of pulmonary embolus or acute intrathoracic abnormality. Chest x-ray 11/28/2023 1. Evaluation is slightly limited by underexpanded lungs, patient body evidence, and AP portable technique. 2. Dense lingular opacities; prominent pericardial fat pad versus infiltrates. Consider PA and lateral chest radiographs for greater diagnostic sensitivity if clinically indicated. Electronically authenticated by: STEVENSON WATSON Date: 11/28/2023 14:03 Dictated By: Stevenson Watson M.D. Assessment and P (more content not included)... [facility] Evaluation note 02-03-2023 Note [...] no improvement in 2 to 3 days [employer] Other Evaluation note 11-03-2022 Note Date & [...] or fevers Oct, Bronchitis (ICD-10 - J40) [employer] Other Evaluation note 09-09-2022 Note Date & [...] no improvement in 2 to 3 days. [employer] Other Evaluation note 07-07-2021 Note Date & [...] weeks for the cough to go away [employer] Other Evaluation note 07-07-2021 Note Date & [...] weeks for the cough to go away [employer] Other Evaluation note Note Date & Type Note Facility Evaluation note No Information [employer] [facility] Other Evaluation note Note Date & Type Note Facility Evaluation note Diagnosis Onset Date Bilateral otitis media nonea ctive [facility] Work Phone: History general Narrative - Reported Note Date & Type Note Facility History general Narrative - Reported Type Medical History Fibroids Medical History degenerative disc disease Surgical History cholecystectomy 1994 Surgical History Btl 1993 Surgical History tonsilectomy 1968 Surgical History Temporal arterial biopsy 10-13- 019 Hospitalization History Cholecystectomy 1994 Hospitalization History & Btl 1993 Hospitalization History 1985 Hospitalization History 1979 [employer] Other History general Narrative - Reported Note Date & Type Note Facility History general Narrative - Reported [employer] Other Summary Purpose Family History No Family [...] FoundDocuments on File Type Date 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 Advance Directives and Living Will Power of Editor Magazine Advance Directive Response Recorded Date/ Time Advance Directives No May 20, 2018 4:07pm Assessments Diagnosis Irregular uterine bleeding Irregular menstrual cycle Chief Complaint and Reason for Visit Chief Complaint POSS LEFT EAR INFECT ION Reason for Visit Bilateral otitis med ia Additional Source Comments INFORMATION SOURCE (unrecogn ized section and content) DATE CREATED AUTHOR 10/17/2017 [facility] DATE CREATED AUTHOR AUTHOR'S ORGANIZ ATION 08/22/2018 [facility] DATE CREATED AUTHOR AUTHOR'S ORGANIZ ATION 01/05/2019 [facility] DATE CREATED AUTHOR AUTHOR'S ORGANIZ ATION 06/23/2019 [facility] DATE CREATED AUTHOR AUTHOR'S ORGANIZ ATION 07/27/2022 [facility] DATE CREATED AUTHOR AUTHOR'S ORGANIZ ATION 10/09/2023 [facility] DATE CREATED AUTHOR AUTHOR'S ORGANIZ ATION 01/24/2024 [facility] REASON FOR VISIT (unrecogniz ed section and [...] BE BASED ON THE PRIMARY CLINICAL RECORDS. [facility]. provides no warranty or guarantee of the accuracy or completeness of information in this document.
[2024-07-10] MEDS: LIDOCAINE HCL 1% 100 MG/10 ML MDV INJ (13:20)
--- NOTE | 2024-07-10 13:27 | ED_ITS ---
HPI - Skin/Abscess/Foreign Bdy General Chief complaint: Skin/Abscess/Foreign Body Stated complaint: LEXT FINGER SPLINTER/REDNESS Time Seen by Provider: 07/10/24 12:42 Source: patient Mode of arrival: walk-in Limitations: no limitations History of Present Illness HPI narrative: The patient is a 63 years old female coming to the ER after she had a splinter in her left middle finger , the patient does not remember the last time she had a tetanus booster Related Data Home Medications ?Medication ?Instructions ?Recorded ?Confirmed cyproheptadine 4 mg tablet 4 mg PO DAILY 11/28/23 11/28/23 metoprolol succinate 25 mg 25 mg PO DAILY 11/28/23 11/28/23 tablet,extended release 24 hr pantoprazole 40 mg tablet,delayed 40 mg PO DAILY 11/28/23 11/28/23 release tizanidine 4 mg tablet 4 mg PO DAILY 11/28/23 11/28/23 Allergies Allergy/AdvReac Type Severity Reaction Status Date / Time Penicillins Allergy Severe Hives Verified 07/10/24 12:38 nitroglycerin (From AdvReac Intermediate bradycardia, Verified 07/10/24 12:38 Nitrostat) hypotension Review of Systems ROS Status of ROS 10 or more systems reviewed and unremark able except as noted in history and below PFSH PFSH Social History Little interest or pleasure in doing things: not at all Feeling down, depressed, or hopeless: not at all Exam Narrative Exam Narrative: Nurses notes and vital signs reviewed and patient is not hypoxic. General: Well-appearing and in no apparent distress. Skin: Warm, dry, no pallor noted. No rash. Left hand; a small splinter just below the middle finger nailbed 1.5 mm no signs of infection Constitutional Vital Signs, click to edit/add: Last Vital Signs Temp 98.1 F 07/10/24 12:38 Pulse 75 07/10/24 12:38 Resp 20 07/10/24 12:38 BP 136/82 07/10/24 12:38 Pulse Ox 97 07/10/24 12:38 O2 Del Method Room Air 07/10/24 12:38 Course Vital Signs Vital signs: Vital Signs Temperature 98.1 F 07/10/24 12:38 Pulse Rate 75 07/10/24 12:38 Respiratory Rate 20 07/10/24 12:38 Blood Pressure 136/82 07/10/24 12:38 Pulse Oximetry 97 07/10/24 12:38 Oxygen Delivery Method Room Air 07/10/24 12:38 Temperature 98.1 F 07/10/24 12:38 Pulse Rate 75 07/10/24 12:38 Respiratory Rate 20 07/10/24 12:38 Blood Pressure 136/82 07/10/24 12:38 Pulse Oximetry 97 07/10/24 12:38 Oxygen Delivery Method Room Air 07/10/24 12:38 MDM - Skin/Abscess/Foreign Bdy MDM Narrative Medical decision making narrative: Initial attempt to remove the splinter without anesthesia was not successful After cleaning the area and applying nerve block by injecting the area at the m etacarpophalangeal joint of the left middle finger, injected 2 cc of 1% lidocaine, after which I was able to pull the foreign body with alligator The patient had a tetanus booster in the ER Wound care instructed The patient is to follow up with primary care physician in next 2-3 days or to return to the emergency department should any of the signs or symptoms worsen or new symptoms develop. The patient agrees with the following Diagnosis and Treatment plan and the patient will be discharged home. Discharge Plan Discharge Chief Complaint: Skin/Abscess/Foreign Body Clinical Impression: Splinter of finger Patient Disposition: Home, Self-Care Time of Disposition Decision: 13:26 Condition: Good Prescriptions / Home Meds: No Action metoprolol succinate 25 mg tablet extended release 24 hr 25 mg PO DAILY pantoprazole 40 mg tablet,delayed release (DR/EC) 40 mg PO DAILY tizanidine 4 mg tablet 4 mg PO DAILY cyproheptadine 4 mg tablet 4 mg PO DAILY Print Language: Guatemalan Instructions: Puncture Wound (DC) Referrals: Akil Trammell MD [Primary Care Provider] - 1 week
[2024-07-10] MEDS: ADACEL DIPH,PERTUSS(ACELL),TET VAC/PF 0.5 ML ADULT SYRINGE IM (13:30)
== END 2024-07-10 13:39 | disposition home or self-care (01) ==
PROVIDERS: Emergency Provider Emergency Medicine; PCP Family Medicine
DX: S60.453A Superficial foreign body of left middle finger, initial encounter (principal); W45.8XXA Other foreign body or object entering through skin, initial encounter; Z23 Encounter for immunization
CPT/HCPCS: 90471; 90715; 99284

== ENCOUNTER 2024-12-07 11:35 | Outpatient (OUT) | payer BC, SELFPAY ==
--- OUTSIDE RECORDS SUMMARY | 2024-11-08 07:31 | XMS_ITS ---
Author Organization [facility] in [place] Address [address] [place] [address] Care Team Providers Care Tipple Repairer Name Role Phone Cristo Trammell Primary Care Provider REASON FOR VISIT refill Medications Medication SIG (Take, Route, Frequency, Duration) Notes Start Date End Date Status Metoprolol Succinate ER 25 MG TAKE 1 TABLET BY MOUTH ONCE DAILY Orally Once a day for 90 days Active tiZANidine HCl 4 MG TAKE 1 TABLET BY GREGG TH AT BEDTIME Orally Once a day for 90 days Active Encounters Encounter Location Date Provider Diagnosis [place] [place] [address] 11/08/2024 Cristo Trammell Well adult Z00.00 Assessments Encounter Date Diagnosis (ICD Code) Assessment Notes Treatment Notes Treatment Clinical Notes Section Notes 11/08/2024 Well adult (ICD-10 - Z00.00) Plan Of Treatment Medication Medication Name Sig Start Date Stop Date Notes Metoprolol Succinate ER 25 MG TAKE 1 TAB LET BY MOUTH ONCE DAILY Orally Once a day for 90 days tiZANidine HCl 4 MG TAKE 1 TABLET BY GREGG TH AT BEDTIME Orally Once a day for 90 days Progress Notes * Monet HANNAH SDOB:1960 ( 64 yo F)Acc No.[id number]:11/08/2024 Patient: Monet KIRBY :1960 A ge:64 Y S ex:Female Address:[facility] [place], [address] * Refills Refill tiZANidine HCl Tablet, 4 MG, Orally, 90, TAKE 1 TABLET BY MOUTH AT BEDTIME, Once a day, 90 days, Refills=3 Refill Metoprolol Succinate ER Tablet Extended Release 24 Hour, 25 MG, Orally, 90, TAKE 1 TABLET BY MOUTH ONCE DAILY, Once a day, 90 days, Refills=3 * true * Date: Generated for Wilver ornelas/Cassisu/Dave on: 0 12/07/2024 11:39 AM EDT
--- NOTE | 2024-12-07 | XR_ITS ---
[place] [id number] Patient Name: ERNA MONTANEZ MRN: [id number] date: 1960 Sex: F Assigned Patient Location: [facility] Current Patient Location: [facility] Accession/Order Number: [id number] Exam Date: 12/07/2024 12:23 Report Date: 12/07/2024 12:24 At the request of: GINNY BARNETT MD Procedure: XR hand RT 2V RIGHT HAND - 2 views REASON FOR EXAM: Thumb pain COMPARISON: None FINDINGS: No focal soft tissue abnormality or acute bony process. Moderate degenerative changes involving the scaphotrapezial joint, CMC joint of the thumb as well as the IP joint of the thumb. No bony erosions. XR/XR hand RT 2V IMPRESSION: DEGENERATIVE CHANGES INVOLVING THE CARPUS AND THUMB WITHOUT ACUTE BONY PROCESS. Impression dictated by: John Lorenzo Jr., D.O. 12/07/2024 12:24 PM Dictation Location: [place] [address] Electronically authenticated by: [id number] Y Date: 12/07/2024 12:24
--- OUTSIDE RECORDS SUMMARY | 2024-12-07 06:45 | XMS_ITS ---
Author Organization [facility] in [place] Address [address] [place] [address] Care Team Providers Care Merchandise Director Name Role Phone Cristo Trammell Primary Care Provider [phone] Allergies Allergen (clinical drug ingredient) Drug/Non Drug Allergy documented on EMR Reaction Allergy Type Onset Date Status Penicillin rash Drug Allergy Active REASON FOR VISIT numb, painful right thumb, If hits or uses it, hurts worse- lump on it as well, Patient states someof her other fingers are numb as well Medications Medication SIG (Take, Route, Frequency, Duration) Notes Start Date End Date Status Meloxicam 15 MG 1 tablet Orally Once a day for 30 days 12/07/2024 Active Ferrous Sulfate 325 (65 Fe) MG 1 tablet Orally twice daily 12/19/2023 Active Cyproheptadine HCl 4 MG 1 tablet Orally once daily for 30 days Active tiZANidine HCl 4 MG TAKE 1 TABLET BY GREGG AT BEDTIME Orally Once a day for 90 days Active Metoprolol Succinate ER 25 MG TAKE 1 TABLET BY MOUTH ONCE DAILY Orally Once a day for 90 days Active Social History Tobacco Use: Social History Observation Description Date Details (start date - stop date) Never Smoker NA - NA Tobacco Use/Smoking Question Answer Notes Patient is a nonsmoker Problems Problem Type SNOMED Code ICD Code Onset Dates Problem Status W/U Status Risk Notes Problem Pain in limb (60861914) Thumb pain, right (M79.644) Active confirmed Vital Signs Weight 262.6 lbs 12/07/2024 Height 66 in 12/07/2024 Blood pressure systolic 132 mm Hg 12/08/19 25 Blood pressure diastolic 88 mm Hg 025 BMI 42.38 kg/m2 12/07/2024 Encounters Encounter Location Date Provider Diagnosis [facility] [address] [facility] [place] [address] 12/07/2024 Cristo Trammell Thumb pain, right M79.644 Assessments Encounter Date Diagnosis (ICD Code) Assessment Notes Treatment Notes Treatment Clinical Notes Section Notes 12/07/2024 Thumb pain, right (ICD-10 - M79.644) Plan Of Treatment Medication Medication Name Sig Start Date Stop Date Notes Meloxicam 15 MG 1 tablet Orally Once a day for 30 days 03/2025 Pending Test Test Name Order Date XR HIP RT 2 3V W PELVIS 12/07/2024 Progress Notes * Monet HANNAH SDOB:1960 ( 64 yo F)Acc No.[id number]:12/07/2024 UNLOCKED PROGRESS NOTE Progress Note Patient: Monet KIRBY Provider: Paul Trammell ([facility])MD :1960 A ge:64 Y S ex:Female Date:12/07/2024 Address:[facility] [place], [id number] Check In:10:36 AM ESTCheck O ut:11:26 AM EST Subjective: * Chief Complaints: * 1 . Numb, painful right thumb. 2. If hits or uses it, hurts worse- lump on it as well. 3. Patient states some of her other fingers are numb as well. * HPI: G eneral: no new reptitive and no injury - some sweelling distally - but that isnt hurying some painito palm of hand. * Medical History: C ervical disc disease, Hemorrhoids, Lumbar radiculopathy, Palpitation. * Surgical History: T emporal Artery Bx 09/2018, CHOLECYSTECTOMY , TONSILLECTOMY,UNDER 12YRS , Tubes tied . * Hospitalization/Major Diagno stic Procedure: D enies Past Hospitalization. * Family History: F ather: alive, Sinus Cancer. M other: alive, Non Hodgkins lymphoma. B rother(s): , multiple sclerosis. S on(s): alive, type I diabetes. 1 brother(s) . 3 son(s) . . * Social History: T obacco Use: T obacco Use/Smoking P atient is a n onsmoker * Medications: T aking Cyproheptadine HCl 4 MG Tablet 1 tablet Orally once daily , Taking Ferrous Sulfate 325 (65 Fe) MG Tablet 1 tablet Orally twice daily , Taking Metoprolol Succinate ER 25 MG Tablet Extended Release 24 Hour TAKE 1 TABLET BY MOUTH ONCE DAILY Orally Once a day , Taking tiZANidine HCl 4 MG Tablet TAKE 1 TABLET BY MOUTH AT BEDTIME Orally Once a day , Discontinued Cephalexin 500 MG Tablet 2 tabs Orally bid , Medication List reviewed and reconciled with the patient * Allergies: P enicillin: rash - Allergy. Objective: * Vitals: W t:262.6lbs, Ht: 66 in, BP:132/88mm Hg, BMI:42.38Index, Ht-cm: 167.64 cm, Wt-k.11 kg. * Examination: A bdomen Exam:: R thiumb with some tenerness DIP jointy. Assessment: * Assessment: 1. T humb pain, right - M79.644 (Primary) Plan: * Treatment: * Preventive Medicine: Screenings/Counseling: B LA ACTION PLAN Above Normal BMI Follow-up D ietary management education, guidance, and counseling * * Electronic signature of Cristo Trammell MD, [phone] on 12/07/2024 at 11:39 AM EDT Sign off status: Pending Visit Status: C HK (Check Out) * [facility] Tramm[facility] Natalia Date: 12/07/2024 Generated for Wilver ornelas/Cassius/eTshonasmitting on: 12/07/2024 11:39 AM EDT History and Physical Notes * HPI (History of Present Illness) Category Sub-Category Detail Notes Category Not es General no new reptitive and no injury - some sweelling distally - but that isnt hurying some painito palm of hand Examination Category Sub-Category Detail Notes Category Not es Abdomen Exam: R thiumb with some tenerness DIP jointy
--- OUTSIDE RECORDS SUMMARY | 2024-12-07 11:39 | XMS_ITS | Encounter Summary ---
Author Organization [facility] Address [address] [place] [address] Care Team Providers Care Ointment Mill Tender Name Role Phone Mabel Conway MD Primary Care Provider [phone] Nathaniel Lau Unavailable [phone] Nathaniel Lau Unavailable [phone] Source Comments In the event this information is protected by the Federal Confidentiality of Alcohol and Drug AbusePatient Records regulations: The Federal rules restrict any use of the information to criminally investigate or prosecute any alcohol or drug abuse patient.[facility] Encounter Details Date Type Department Care Team (Late st Contact Info) Description 09/03/2018 Get Medical Advice Neurology [address] [place] [address] Anel Robb MD [address] [place] [address] RE: Visit Follow Up Question Social History Tobacco Use Types Packs/Day Years Used Date Smoking Tobacco: Never Smokeless Tobacco: Never Alcohol Use Standard Drinks/Week Comments No 0 (1 standard drink = 0.6 oz pur e alcohol) PHQ-2 Answer Date Recorded PHQ-2 score 2 08/19/2018 Comments No Sex and Gender Information Value Date Recorded Sex Assigned at Not on file Legal Sex Female 11:07 AM EDT Gender Identity Not on file Sexual Orientation Not on file documented as of this encounter Plan of Treatment Not on file documented as of this encounter Visit Diagnoses Not on filedocumented in this encounter Care Teams Ointment Mill Tender Relationship Specialty Start Date End Date Mabel Conway MD [address] [place] [address] PCP - General Family Medicine 04/28/15 Nathaniel Lau [address] [place] [address] Primary Staff Physician Cardiology 07/14/18 Nathaniel Lau [address] [place] [address] Primary Staff Physician Cardiology 07/14/18 documented as of this encounter
--- OUTSIDE RECORDS SUMMARY | 2024-12-07 11:39 | XMS_ITS | Clinical Summary ---
Author Organization [facility] Healthcare Address [address] [place] [address] Care Team Providers Care Coffin Maker Name Role Phone Akil Trammell MD Primary Care Provider [phone] Allergies Active Allergy Reactions Criticality Noted Date Comments Cephalexin Rash Low 07/11/2023 Penicillins Hives,Rash,Unknown Low 12/06/2016 Medications tiZANidine (Zanaflex) 4 MG tablet every 6 to 8 hours 07/11/2023 Active pantoprazole (ProtoNix) 40 MG EC tablet Take 40 mg by mouth 1 (one) time each day at the same time Active metoprolol succinate XL (Toprol-XL) 25 MG 24 hr tablet 1 (one) time each day at the same time Active cyproheptadine (Periactin) 4 MG tablet Daily at bedtime 07/11/2023 Active Active Problems Problem Noted Date Diagnosed Date Headache 10/08/2023 Family history of aneurysm 10/08/2023 MANGO (obstructive sleep apnea) 10/08/2023 Obesity 10/08/2023 Family History Medical History Relation Name Comments Aneurysm Other Atrial fibrillation Other COPD Other Cancer Other Hypertension Other Multiple sclerosis Other Relation Name Status Comments Other Social History Tobacco Use Types Packs/Day Years Used Date Smoking Tobacco: Never Tobacco Cessation:Counseling Given: Not Answered Alcohol Use Standard Drinks/Week Comments Never 0 (1 standard drink = 0.6 oz pur e alcohol) does not drink caffeine Comments Unknown Sex and Gender Information Value Date Recorded Sex Assigned at Not on file Legal Sex Female 6:43 PM EDT Gender Identity Not on file Sexual Orientation Not on file Last Filed Vital Signs Vital Sign Reading Time Taken Comments Blood Pressure 132/84 10/08/2023 12:30 PM EDT Pulse 70 10/08/2023 12:30 PM EDT Temperature - - Respiratory Rate 16 10/08/2023 12:30 PM EDT Oxygen Saturation 94% 10/08/2023 12:30 PM EDT Inhaled Oxygen Concentration - - Weight 117 kg (258 lb) 10/08/2023 12:30 PM EDT Height 167.6 cm (5' 6 ) 10/08/2023 12:30 PM EDT Body Mass Index 41.64 10/08/2023 12:30 PM EDT Plan of Treatment Health Maintenance Due Date Last Done Comments CT Colonography 1961 Colonoscopy 1961 Colorectal Cancer Screening 1961 FIT-DNA 1961 FIT 1961 FOBT 1961 Sigmoidoscopy 1961 HPV/Cotest 10/02/1991 Mammogram 2001 Cervical Cancer Screening 09/30/2021 Pap Smear 09/30/2021 09/30/2018 Influenza Vaccine (#1) 2024 02/11/2007 [place] [address] [employer] Care Teams Coffin Maker Relationship Specialty Start Date End Date Akil Trammell MD PCP - General Family Medicine 08/19/23
--- OUTSIDE RECORDS SUMMARY | 2024-12-07 11:39 | XMS_ITS | Clinical Summary ---
Author Organization [facility] Address [address] [place] [address] Care Team Providers Care Stain Applicator Name Role Phone Mabel Conway MD Primary Care Provider [phone] Nathaniel Lau Unavailable Allergies Active Allergy Reactions Criticality Noted Date Comments Penicillin Hives 07/24/2017 Sulfamethoxazole-Trimethoprim Vomiting Low 2016 Medications acetaminophen (TYLENOL EXTRA STRENGTH) 500 mg tablet Take 500 mg by mouth as needed. Takes 2 tabs Active topiramate (TOPAMAX) 25 mg tablet Take 1 at bed for 1 wk then 2 at bedfor 1 wk then 3 at bed for 1 wk then 4 at bed 120 tablet 2 08/31/2018 Active Active Problems Problem Noted Date Diagnosed Date Obesity, Class II, BMI 35-39.9 E66.9 07/24/2017 Family History Medical History Relation Comments Cancer Father Heart Father Atrial Fib Cancer Mother Relation Status Comments Father Mother Social History Tobacco Use Types Packs/Day Years Used Date Smoking Tobacco: Never Smokeless Tobacco: Never Alcohol Use Standard Drinks/Week Comments No 0 (1 standard drink = 0.6 oz pur e alcohol) PHQ-2 Answer Date Recorded PHQ-2 score 2 08/19/2018 Area Deprivation Index Answer Date Leonard rded National Score (1-100), lower number is lower ri sk Not on file 04/04/2020 State Score (1-10), lower number is lower risk N ot on file 04/04/2020 Data from: https://www.neighborhoodatlas.medicine.[facility]edu/. Last address used for calculation Not on file 04/04/2020 Comments No Sex and Gender Information Value Date Recorded Sex Assigned at Not on file Legal Sex Female 11:07 AM EDT Gender Identity Not on file Sexual Orientation Not on file Last Filed Vital Signs Vital Sign Reading Time Taken Comments Blood Pressure 140/93 08/19/2018 10:54 AM EDT Pulse 83 08/19/2018 10:54 AM EDT Temperature - - Respiratory Rate 18 07/24/2017 9:17 AM EDT Oxygen Saturation 98% 07/24/2017 9:17 AM EDT Inhaled Oxygen Concentration - - Weight 108.4 kg (239 lb) 08/19/2018 10:54 AM EDT Height 167.6 cm (5' 6 ) 08/19/2018 10:54 AM EDT Body Mass Index 38.58 08/19/2018 10:54 AM EDT Plan of Treatment Health Maintenance Due Date Last Done Comments Anxiety Screening 10/02/1979 Depression Screening 10/02/1979 HIV Screening 10/02/1979 Hepatitis C Screening 10/02/1979 Cervical Cancer Screening [address] Colonography 2006 Cologuard (FIT-DNA) 2006 Colonoscopy 2006 Colorectal Cancer Screening 2006 Diabetes Screening 2006 Fecal Occult Blood 2006 Lipid Screening 2006 Sigmoidoscopy 2006 Pneumococcal Vaccine: 50+ (1 of 1 - PCV) 10/02/2011 Shingrix Vaccine (1 of 2) 10/02/2011 Influenza Vaccine (#1) 2024 02/11/2007 DTaP,Tdap,Td Vaccine (2 - Td or Tdap) 10/18/2026 RSV Vaccine (1 - 1-dose 75+ series) 2036 Insurance [facility] [employer] Care Teams Stain Applicator Relationship Specialty Start Date End Date Mabel Conway MD [address] [place] [id number] PCP - General Family Medicine 04/28/15 Nathaniel Lau [address] [place] [address] Primary Staff Physician Cardiology 07/14/18
--- OUTSIDE RECORDS SUMMARY | 2024-12-07 11:39 | XMS_ITS | Clinical Summary ---
Author Organization [facility] tem Address [id number] [address] [place] [address] Care Team Providers Care Purchasing Manager Name Role Phone Mabel Conway MD Primary Care Provider [phone] Allergies Active Allergy Reactions Criticality Noted Date Comments Penicillins Rash Low 10/20/2018 Social History Tobacco Use Types Packs/Day Years Used Date Smoking Tobacco: Never Assessed Childcare Answer Date Recorded Childcare Unknown 09/28/2018 Employment Answer Date Recorded Employment Unknown 09/28/2018 Purpose - Life Answer Date Recorded Purpose and direction in life Unknown Comments Unknown Sex and Gender Information Value Date Recorded Sex Assigned at Not on file Legal Sex Female 12:07 PM EDT Gender Identity Not on file Sexual Orientation Not on file Plan of Treatment Health Maintenance Due Date Last Done Comments Depression Screening 1973 Tobacco Screening 1973 Adult BMI Screening 10/02/1979 Zoster (Shingles) Vaccine (1 of 2) 10/02/2011 Pap Smear 09/30/2021 09/30/2018 Influenza Vaccine 12/27/2024 DTaP,Tdap and Td Vaccines (2 - Td or Tdap) 10/18/2026 10/18/2016 Medical Devices Not on file Insurance [employer] Member Subscriber Plan / Payer (Ef fective 2018-Present) Name:Monet Montanez Relation to Subscriber:Spouse Name:LEFTY MONTANEZ Date of :1959 Address: [address] [place], [place] [id number] Payer ID:Not on file Type:Not on file Address: [place] [id number] Care Teams Purchasing Manager Relationship Specialty Start Date End Date Mabel Conway MD [facility] [place], [place] [id number] PCP - General Family Medicine 10/02/18
--- OUTSIDE RECORDS SUMMARY | 2024-12-07 11:39 | XMS_ITS | Clinical Summary ---
Author Organization [facility] Address [address], [address] [place] [address] Care Team Providers Care Running Instructor Name Role Phone Mabel Conway MD Primary Care Provider [phone] Allergies Active Allergy Reactions Criticality Noted Date Comments Sulfamethoxazole-Trimethoprim Nausea And Vomiting Low 02/18/2017 Penicillins Rash Low 12/06/2016 Medications metoprolol tartrate (LOPRESSOR) 25 MG tabletIndicatio ns:1/2 tablet daily Take 25 mg by mouth daily Indications: 1/2 tablet daily Active tiZANidine (ZANAFLEX) 4 MG tablet Take 4 mg by mouth nightly 1 12/31/2018 Active Active Problems Patient Care Coordination No te Formatting of this note migh t be different from the original. 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 Immunizations Immunization Administration Dates Next Due TDaP, ADACEL (age 10y-64y), BOOSTRIX (age 10y+), IM, 0.5mL 10/18/2016 Family History Medical History Relation Name Comments Cancer Father sinus High Blood Pressure Father Arthritis Mother Cancer Mother non hodgkins Cancer Other niece breast Cancer Paternal Aunt breast Diabetes Son Relation Name Status Comments Brother Father Alive Maternal Grandfather Maternal Grandmother Mother Alive Other niece Alive Paternal Aunt Paternal Grandfather Paternal Grandmother Son Alive Social History Tobacco Use Types Packs/Day Years Used Date Smoking Tobacco: Never Smokeless Tobacco: Never Alcohol Use Standard Drinks/Week Comments No 0 (1 standard drink = 0.6 oz pur e alcohol) PHQ-2 Answer Date Recorded PHQ-2 Score 2 09/30/2018 Comments No Sex and Gender Information Value Date Recorded Sex Assigned at Not on file Legal Sex Female 5:25 PM EDT Gender Identity Not on file Sexual Orientation Not on file Last Filed Vital Signs Vital Sign Reading Time Taken Comments Blood Pressure 130/68 08/03/2019 3:36 PM EDT Pulse - - Temperature 36.2 C (97.1 F) 02/06/2018 11:20 AM EDT Respiratory Rate - - Oxygen Saturation - - Inhaled Oxygen Concentration - - Weight 97.5 kg (215 lb) 08/03/2019 3:36 PM EDT Height 167.6 cm (5' 6 ) 08/03/2019 3:36 PM EDT Body Mass Index 34.7 08/03/2019 3:36 PM EDT Plan of Treatment Not on file Insurance Care Teams Running Instructor Relationship Specialty Start Date End Date Mabel Conway MD PCP - General Family Medicine 04/10/17
--- OUTSIDE RECORDS SUMMARY | 2024-12-07 11:39 | XMS_ITS | Patient Health Record ---
Author Organization [facility] [place] Address [address] [place] [address] Care Team Providers Care Marketing Sales Consultant Name Role Phone Cristo Barnett Primary Care Provider Allergies Allergen (clinical drug ingredient) Drug/Non Drug Allergy documented on EMR Reaction Allergy Type Onset Date Status Penicillin rash Drug Allergy Active Results Component Value Reference Range Notes NM ko perf SPECT rest str Reviewed date:12/14/2023 05:17:41 PM Interpretation: Performing Lab: Notes/Report: Source Facility: [place] [address] Nuclear Medicine Report Signed Patient: MONET HANNAH MR#: [id number] : 1960 Acct:[id number] Age/Sex: 63 / F ADM Date: 12/12/23 Loc: NM Attending Dr: Ginny Barnett M.D. Ordering Physician: Ginny Barnett M.D. Date of Service: 12/12/23 Procedure(s): NM ko perf SPECT rest str Accession Number(s): [id number] cc: Ginny Barnett M.D. Patient Name: MONET HANNAH MR#: [id number] : 1960 Exam Date: 12/12/2023 Ordering Doctor: DR Ginny Barnett . RADIOLOGY REPORT PROCEDURE: NM KO PERF SPECT REST STR COMPARISON: None. INDICATIONS: CHEST PAIN TECHNIQUE: Exam Description: Rest/Stress one day protocol gated SPECT Rest Imagin.9 mCi Tc-99m Cardiolite IV on 12/12/2023 Stress Imaging 29.8 mCi Tc-99m Cardiolite IV on 12/12/2023 Exercise Protocol: Kendrick Heart Rate (bpm): Rest: 104 Max: 155 PMHR: 98 Blood Pressure: Rest: 140/92 Max: 178/96 Exercise Time: Minutes: 4 Seconds: 36 Stage Reached: Stage: 2 Mets 7.0 Symptoms: Rest and peak stress ECG findings were pending and the exercise portion of the study was pending per attending physician Dr. Kwon . For more details please see separate cardiac stress test report. FINDINGS: QUALITY OF STUDY: Excellent. PERFUSION DEFECT: None. LOCATION: N/A SIZE: N/A. SEVERITY: N/A. TYPE: N/A. WALL MOTION: Normal. LV SIZE: Normal. 68 mL. TID / TCD: None; 1.1 LVEF: Normal. Calculated EF 77%. SUMMARY: Myocardial perfusion imaging study is NORMAL. CONCLUSION: 1. Normal nuclear medicine myocardial perfusion scan. Dictated by: Stevenson Watson M.D. on 12/12/2023 at 14:38 Approved by: Stevenson Watson M.D. on 12/12/2023 at 14:40 Dictated By: Stevenson Watson M.D. Signed By: 12/12/23 1441 DD/ 1440 TD/TT: Captain'S Assistant: [place] [address] Nuclear Medicine Report Signed Patient: MONET HANNAH MR#: [id number] : 1960 Acct:[id number] Age/Sex: 63 / F ADM Date: 12/12/23 Loc: NM Attending Dr: Bernie Barnett M.D. Ordering Physician: Ginny Barnett M.D. Date of Service: 12/12/23 Procedure(s): NM ko perf SPECT rest str Accession Number(s): [id number] cc: Ginny Barnett M.D. Patient Name: MONET HANNAH MR#: [id number] : 1960 Exam Date: 12/12/2023 Ordering Doctor: DR Ginny Barnett . RADIOLOGY REPORT PROCEDURE: NM KO PE RF SPECT REST STR COMPARISON: None. INDICATIONS: CHEST PAIN TECHNIQUE: Exam Description: Rest/Stress one day protocol gated SPECT Rest Imagin.9 mC i Tc-99m Cardiolite IV on 12/12/2023 Stress Imaging 29.8 mCi Tc-99m Cardiolite IV on 12/12/2023 Exercise Protocol: Kendrick Heart Rate (bpm): Rest: 104 Max: 155 PMHR: 98 Blood Pressure: Rest : 140/92 Max: 178/96 Exercise Time: Minutes: 4 Seconds: 36 Stage Reached: Stage : 2 Mets 7.0 Symptoms: Rest and peak stress ECG findings were pending and the exercise portion of the study was pending pe r attending physician Dr. Kwon . For more details please see separate cardiac stress test report. FINDINGS: QUALITY OF STUDY: Excellent. PERFUSION DEFECT: None. LOCATION: N/A SIZE: N/A. SEVERITY: N/A. TYPE: N/A. WALL MOTION: Normal. LV SIZE: Normal. 68 mL. TID / TCD: None; 1.1 LVEF: Normal. Calculated EF 77%. SUMMARY: Myocardial perfusion imaging study is NORMAL. CONCLUSION: 1. Normal nuclear medicine myocardial perfusion scan. Dictated by: Stevenson Watson M.D. on 12/12/2023 at 14:38 Approved by: Stevenson Watson M.D. on 12/12/2023 at 14:40 Dictated By: Stevenson Watson M.D. Signed By: 12/12/23 1441 DD/ 1440 TD/TT: Captain'S Assistant: GLYCOHEMOGLOBIN A1C Reviewed date:12/18/2023 08:56:05 PM Interpretation: Performing Lab: Notes/Report: [facility] , Glycohemoglobin A1C 5.4 4.5-6.2 % ADA RECOMMENDED LIMIT 4.0 - 6.0 ADA THERAPEUTIC TARGET < 7.0 ACTION SUGGESTED > 7.0 Estimated Average Glucose 108 Performing Lab: see note ML - [facility] LB INSULIN Reviewed date:12/21/2023 09:50:15 PM Interpretation: Performing Lab: Notes/Report: [facility] , Insulin 7.4 2.6-24.9 uIU/mL Performed at: [facility] [address] [id number] Property Management Intern: Maxim West PhD, Phone: [phone] Performing Lab: see note LC - [facility] LB Occult Blood* Reviewed date:12/26/2023 12:37:33 PM Interpretation: Performing Lab: Notes/Report: [facility] , Occult Blood Negative Performing Lab: see note - [facility] LB FREE T4 Reviewed date:01/19/2024 02:22:14 PM Interpretation: Performing Lab: Notes/Report: [facility] , Free T4 1.14 0.76-1.46 ng/dL Performing Lab: see note ML - [facility] LB CBC AUTO DIFF Reviewed date:01/19/2024 02:22:14 PM Interpretation: Performing Lab: Notes/Report: [facility] , White Blood Count 4.8 4.0-11.0 10 3/uL Red Blood Count 5.00 4.20-5.40 10 6/uL Hemoglobin 14.6 12.0-16.0 g/dL Hematocrit 45.5 36.0-48.0 % Mean Corpuscular Volume 91.0 81.0-99.0 fL Mean Corpuscular Hemoglobin 29.2 26.7-34.0 pg Mean Corpuscular HGB Conc 32.1 29.9-35.2 g/dL Red Cell Distribution Width 14.7 11.0-15.0 % Platelet Count 296 150-450 10 3/uL Mean Platelet Volume 10.3 9.5-13.5 fL Neutrophils Percent Auto 57.2 43.0-75.0 % Lymphocytes Percent Auto 31.0 20.5-60.0 % Monocytes Percent Auto 8.3 1.7-12.0 % Eosinophils Percent Auto 2.5 0.9-7.0 % Basophils Percent Auto 0.8 0.2-2.0 % Immature Granulocytes Pct Auto 0.2 0.0-0.5 % Neutrophils Absolute Auto 2.8 1.4-6.5 10 3/uL Lymphocytes Absolute Auto 1.5 1.2-3.8 10 3/uL Monocytes Absolute Auto 0.4 0.3-0.8 10 3/uL Eosinophils Absolute Auto 0.1 0.0-0.7 10 3/uL Basophils Absolute Auto 0.0 0.0-0.1 10 3/uL Immature Granulocytes Abs Auto 0.01 0.00-0.03 10 3/uL Performing Lab: see note ML - [facility] LB CA holter monitor 7-15 days Reviewed date:01/01/2024 06:17:10 PM Interpretation: Performing Lab: Notes/Report: Source Facility: [facility] [place] [address] [place] [address] Cardiology Report Signed Patient: MONET HANNAH MR#: [id number] : 1960 Acct:[id number] Age/Sex: 63 / F ADM Date: 12/18/23 Loc: LAB Attending Dr: Ginny Barnett M.D. Ordering Physician: Ginny Barnett M.D. Date of Service: 12/18/23 Procedure(s): CA holter monitor 7-15 days Accession Number(s): [id number] cc: Ginny Barnett M.D. 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1960 Requested By: GINNY BARNETT Order Number: [id number] Reading MD: JOVAN TAYLOR Interpretive Statements Predominant rhythm is sinus with average rate of 83 bpm Tachycardia - max rate of 132 bpm (sinus tachycardia) Bradycardia - min rate of 52 bpm Ventricular ectopy - none Impression: Predominant rhythm is sinus with average rate of 83 bpm Fastest rate of 132 bpm (sinus tachycardia) and slowest rate of 52 bpm No ventricular ectopy Longest episode of sinus tachy is 58min 7sec with rates between 110-126 bpm Longest episode of sinus aron is 12min 44sec with rates between 53-57 bpm No atrial fibrillation No pauses or blocks Electronically Signed On 01-01-2024 14:47:25 EDT by JOVAN TAYLOR Dictated By: Jovan Taylor D.O. Signed By: 01/01/24144601/01/241446 DD/ 8 TD/TT: Captain'S Assistant: [place] [address] Cardiology Report Signed Patient: MONET HANNAH MR#: [id number] : 1960 Acct:[id number] Age/Sex: 63 / F ADM Date: 12/18/23 Loc: LAB Attending Dr: Bernie Barnett M.D. Ordering Physician: Ginny Barnett M.D. Date of Service: 12/18/23 Procedure(s): CA holter monitor 7-15 days Accession Number(s): [id number] cc: Ginny Barnett M.D. 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1960 Requested By: GINNY BARNETT Order Number: [id number] Reading MD: JOVAN TAYLOR Interpretive Statements Predominant rhythm i s sinus with average rate of 83 bpm Tachycardia - max rate of 132 bp m (sinus tachycardia) Bradycardia - min rate of 52 bpm Ventricular ectopy - none Impression: Predominant rhythm i s sinus with average rate of 83 bpm Fastest rate of 132 bpm (sinus tachycardia) and slowest rate of 52 bpm No ventricular ectopy Longest episode of sinus tachy is 58min 7sec with rates between 110-126 bpm Longest episode of sinus aron is 12min 44sec with rates between 53-57 bpm No atrial fibrillation No pauses or blocks Electronically Marah d On 01-01-2024 14:47:25 EDT by JOVAN TAYLOR Dictated By: Jovan Taylor D.O. Signed By: 01/01/24 1447 01/01/24 1447 DD/ 0829 TD/TT: Captain'S Assistant: TSH Reviewed date:12/18/2023 08:56:05 PM Interpretation: Performing Lab: Notes/Report: [facility] , Thyroid Stimulating Hormone 2.932 0.358-3.740 uIU/mL Performing Lab: see note ML - [facility] LB T4 Reviewed date:12/18/2023 08:56:05 PM Interpretation: Performing Lab: Notes/Report: [facility] , T4 Thyroxine 11.20 4.80-13.90 ug/dL Performing Lab: see note ML - [facility] LB PROF 14(COMP METB) Reviewed date:12/18/2023 08:56:05 PM Interpretation: Performing Lab: Notes/Report: [facility] , Sodium 136 136-145 mmol/L Potassium 3.7 3.5-5.1 mmol/L Chloride 99 98-107 mmol/L Carbon Dioxide 30.9 21.0-32.0 mmol/L Anion Gap 9.8 Glucose 84 74-106 mg/dL Blood Urea Nitrogen 14.0 7.0-18.0 mg/dL Creatinine 0.76 0.55-1.02 mg/dL Estimated GFR ( Radha >60 >=60 Estimated GFR (Non- Shana >60 >=60 BUN Creatinine Ratio 18.4 Calcium 9.2 8.5-10.1 mg/dL Bilirubin Total 0.6 0.2-1.0 mg/dL Aspartate Amino Transferase 13 15-37 U/L Alanine Aminotransferase 21 14-59 U/L Alkaline Phosphatase 92 46-116 U/L Total Protein 7.2 6.4-8.2 g/dL Albumin Level 3.2 3.4-5.0 g/dL Globulin 4.0 Albumin Globulin Ratio 0.8 Performing Lab: see note ML - [facility] LIPID PROFILE Reviewed date:12/18/2023 08:56:05 PM Interpretation: Performing Lab: Notes/Report: [facility] , Triglycerides 86 <=150 mg/dL Cholesterol 203 <=200 mg/dL HDL Cholesterol 40 40-60 mg/dL > or =60 mg/dl - LOW CARDIOVASCULAR RISK <40 mg/dl - HIGH CARDIOVASCULAR RISK LDL Cholesterol Calculated 146.0 <100 mg/dl OPTIMAL 100-129 mg/dl NEAR OR ABOVE OPTIMAL 130-159 mg/dl BORDERLINE HIGH 160-189 mg/dl HIGH >190 mg/dl VERY HIGH VLDL CHOLESTEROL 17.2 Chol HDL Ratio 5.1 3.3 - 4.4 LOW RISK 4.4 - 7.1 AVERAGE RISK 7.1 - 11.0 MODERATE RISK >11.0 HIGH RISK Performing Lab: see note ML - [facility] LB IRON Reviewed date:12/18/2023 08:56:05 PM Interpretation: Performing Lab: Notes/Report: [facility] , Iron 39.0 50.0-170.0 ug/dL Performing Lab: see note ML - [facility] FREE T3 Reviewed date:12/18/2023 08:56:05 PM Interpretation: Performing Lab: Notes/Report: [facility] Free T3 2.01 2.18-3.98 pg/mL Performing Lab: see note ML - [facility] LB CBC AUTO DIFF Reviewed date:12/18/2023 08:56:05 PM Interpretation: Performing Lab: Notes/Report: [facility] , White Blood Count 7.7 4.0-11.0 10 3/uL Red Blood Count 4.94 4.20-5.40 10 6/uL Hemoglobin 14.4 12.0-16.0 g/dL Hematocrit 43.6 36.0-48.0 % Mean Corpuscular Volume 88.3 81.0-99.0 fL Mean Corpuscular Hemoglobin 29.1 26.7-34.0 pg Mean Corpuscular HGB Conc 33.0 29.9-35.2 g/dL Red Cell Distribution Width 13.3 11.0-15.0 % Platelet Count 519 150-450 10 3/uL Mean Platelet Volume 9.3 9.5-13.5 fL Neutrophils Percent Auto 70.1 43.0-75.0 % Lymphocytes Percent Auto 18.9 20.5-60.0 % Monocytes Percent Auto 8.3 1.7-12.0 % Eosinophils Percent Auto 1.6 0.9-7.0 % Basophils Percent Auto 0.8 0.2-2.0 % Immature Granulocytes Pct Auto 0.3 0.0-0.5 % Neutrophils Absolute Auto 5.4 1.4-6.5 10 3/uL Lymphocytes Absolute Auto 1.5 1.2-3.8 10 3/uL Monocytes Absolute Auto 0.6 0.3-0.8 10 3/uL Eosinophils Absolute Auto 0.1 0.0-0.7 10 3/uL Basophils Absolute Auto 0.1 0.0-0.1 10 3/uL Immature Granulocytes Abs Auto 0.02 0.00-0.03 10 3/uL Performing Lab: see note ML - [facility] LB THYROID ANTIBODIES Reviewed date:12/21/2023 09:50:15 PM Interpretation: Performing Lab: Notes/Report: [facility] , Thyroid Peroxidase (TPO) Ab <9 0-34 IU/mL Thyroglobulin Antibody <1.0 0.0-0.9 IU/mL Thyroglobulin Antibody measured by [employer] Methodology It should be noted that the presence of thyroglobulin antibodies may not be pathogenic nor diagnostic, especially at very low levels. The assay hassock maker has found that four percent of individuals without evidence of thyroid disease or autoimmunity will have positive TgAb levels up to 4 IU/mL. Performed at: [address] [id number] Property Management Intern: Maxim West PhD, Phone: [phone] Performing Lab: see note - [facility] LB TSH Reviewed date:01/19/2024 02:22:14 PM Interpretation: Performing Lab: Notes/Report: [facility] , Thyroid Stimulating Hormone 3.472 0.358-3.740 uIU/mL Performing Lab: see note ML - [facility] LB FREE T3 Reviewed date:01/19/2024 02:22:14 PM Interpretation: Performing Lab: Notes/Report: [facility] , Free T3 2.43 2.18-3.98 pg/mL Performing Lab: see note ML - [facility] LB Reason For Referral Diagnosis 1 Chest pain (R07.9) Diagnosis 2 Palpitations (R00.2) Referral Organization [facility] Referring Provider First Name Cristo Referring Provider Last Name Jp Referring Provider Speciality [facility] car Referred Provider Prabhakar Mary Referred Provider Specialty Cardiovascul ar Disease Referral Priority Routine Medications Medication SIG (Take, Route, Frequency, Duration) [...] Question Answer Notes Patient is a nonsmoker Alcohol Screen (Audit-C) Question Answer Notes Did you have a drink containing alcohol in the p ast year? No Points 0 Interpretation Negative AUDIT-C (Standard) Question Answer Notes Did you have a drink containing alcohol in the p ast year? No Points 0 Interpretation Negative Problems Problem Type SNOMED Code ICD Code Onset Dates Problem Status W/U Status Risk Notes Problem 36612924 Obstructive slee p apnea (adult) (pediatric) (G47.33) Active confirmed Problem Chest pain (71920520) Chest pain (R07.9) Active confirmed Problem Hypothyroidism (60531778) Hypothyroidism (E03.9) Active confirmed Problem Well adult (273987413) Well adult (Z00.00) Active confirmed Problem Cellulitis (856536637) Cellulitis (L03.90) Active confirmed Problem Pain in limb (17553438) Thumb pain, right (M79.644) Active confirmed Vital Signs Blood pressure diastolic 88 mm Hg 12/07/2024 Height 66 in 12/07/2024 Blood pressure systolic 132 mm Hg 12/07/2024 Weight 262.6 lbs 12/07/2024 BMI 42.38 kg/m2 12/07/2024 Procedures Procedure Date Ordered Date Performed Result Body Sit e Holter Monitor - 3 days up to 14 days 12/18/2023 N/A Encounters Encounter Location Date Provider Diagnosis [facility] [address] [place] [address] 12/18/2023 Cristo Hoy Well adult Z00.00 an d Tachycardia R00.0 [facility] [address] [place] [address] 12/07/2024 Cristo Hoy Thumb pain, right M7 9.644 [address] [place] [address] 07/14/2024 Cristo Hoy Cellulitis L03.90 [facility] [address] [place] [address] 02/10/2024 Cristo Hoy Well adult Z00.00 [facility] [address] [facility] [place] [address] 02/17/2024 Cristo Hoy Well adult Z00.00 [facility] [address] [place] [address] 11/08/2024 Cristo Hoy Well adult Z00.00 [facility] [address] [facility] [address] [facility] [place] [address] 12/08/2023 Cristo Hoy [place] [address] [place] [address] 12/14/2023 Cristo Barnett [facility] [address] [place] [address] 12/18/2023 Cristo Barnett Anemia D64.9 and Hypothyroidism E03.9 [facility] [address] [place] [address] 01/01/2024 Cristo Barnett Chest pain R07.9 and Palpitations R00.2 [facility] [address] [place] [address] 01/19/2024 Cristo Barnett Assessments Encounter Date Diagnosis (ICD Code) Assessment Notes Treatment Notes Treatment Clinical Notes Section Notes 12/18/2023 Tachycardia (ICD-10 - R00.0) 12/18/2023 Well adult (ICD-10 - Z00.00) 07/14/2024 Cellulitis (ICD-10 - L03.90) 12/07/2024 Thumb pain, right (ICD-10 - M79.644) 12/18/2023 Hypothyroidism (ICD-10 - E03.9) 12/18/2023 Anemia (ICD-10 - D64.9) 01/01/2024 Palpitations (ICD-10 - R00.2) 01/01/2024 Chest pain (ICD-10 - R07.9) 02/10/2024 Well adult (ICD-10 - Z00.00) 02/17/2024 Well adult (ICD-10 - Z00.00) 11/08/2024 Well adult (ICD-10 - Z00.00) Plan Of Treatment Pending Test Test Name Order Date CMP (COMPLETE METABOLIC PANEL) 3 CMP (COMPLETE METABOLIC PANEL) 4 HEMOGLOBIN A1C (GLYCO) 10/07/2022 HEMOGLOBIN A1C (GLYCO) 12/18/2023 IRON, TOTAL 10/07/2022 IRON, TOTAL 12/18/2023 LIPID PANEL (CHOL/TRIG/HDL/LDL) 12/18/19 24 LIPID PANEL (CHOL/TRIG/HDL/LDL) 10/08/19 23 CBC WITH DIFF 10/07/2022 CBC WITH DIFF 12/18/2023 VITAMIN D, 25 LEVEL (TOTAL) 10/07/2022 T3 FREE, T4 FREE and TSH 12/18/2023 FECAL OCCULT BLOOD 12/18/2023 URINE CULTURE 10/10/2022 Sleep study - Diagnostic Polysonogram Insulin Level 10/07/2022 Insulin Level 12/18/2023 Treadmill Stress Test with Nuclear Imagi ng 12/01/2023 STOOL OCCULT BLOOD 10/07/2022 AMYLASE 10/10/2022 CBC AUTO DIFF 10/10/2022 CBC AUTO DIFF 12/18/2023 LIPASE 10/10/2022 PROF 14(COMP METB) 10/10/2022 SNR 04 URINALYSIS 10/10/2022 URINE MICROSCOPIC ONLY 10/10/2022 THYROID PANEL (T4/TSH/FREE T3) 4 THYROID PANEL (T4/TSH/FREE T3) 3 Holter Monitor - 3 days up to 14 days XR HIP RT 2 3V W PELVIS 12/07/2024 Insurance Providers Payer Name Payer Address Payer Phone Subscriber Number Group Number Insured Name Patient Relationship to Insured Coverage Start Date Coverage End Date [facility] [address] [place] [address] [id number] Lefty Hannah Spouse - patient is the spouse of the insured Medical (General) History Medical History History ICD Code Cervical disc disease M50.90 Hemorrhoids K64.9 Lumbar radiculopathy M54.16 Palpitation R00.2 Surgical History Surgery Date(Month/Year) Tubes tied TONSILLECTOMY,UNDER 12YRS CHOLECYSTECTOMY 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
== END 2024-12-07 11:36 | disposition home or self-care (01) ==
PROVIDERS: PCP Family Medicine; Visit Provider Family Medicine
DX: M79.644 Pain in right finger(s) (principal)
CPT/HCPCS: 73120

== ENCOUNTER 2025-01-19 12:48 | Outpatient (OUT) | payer BC, SELFPAY ==
--- OUTSIDE RECORDS SUMMARY | 2025-01-19 12:50 | XMS_ITS | Clinical Summary ---
Author Organization [facility] Address [address] [place] [address] Care Team Providers Care Robotics Technician Name Role Phone Mabel Conway MD Primary Care Provider [phone] Nathaniel Lau Unavailable [phone] Allergies Active Allergy Reactions Criticality Noted Date [...] N ot on file 04/04/2020 Data from: https://www.neighborhoodatlas.medicine.[facility].edu/. Last address used for calculation Not on [...] (1 - 1-dose 75+ series) 2036 [place] [facility] [place] To Get Approved For O Care Teams Robotics Technician Relationship Specialty Start Date End Date Mabel Conway MD [address] [place] [address] PCP - General Family Medicine 04/28/15 Nathaniel Lau [address] [place] [address] Primary Staff Physician Cardiology 07/14/18
--- OUTSIDE RECORDS SUMMARY | 2025-01-19 12:50 | XMS_ITS | Clinical Summary ---
Author Organization [facility] tem Address [employer] [id number] [address] [place] [address] Care Team Providers Care Grades 7 And 8 Teacher Name Role Phone Mabel Conway MD Primary Care Provider Allergies Active Allergy Reactions Criticality Noted Date [...] Subscriber:Spouse Name:LEFTY MONTANEZ Date of :1959 Address: [address] [place], [place] [id number] Payer ID:Not on file Type:Not on file Address: [place] [id number] Care Teams Grades 7 And 8 Teacher Relationship Specialty Start Date End Date Mabel Conway MD [facility] [place], [place] [id number] PCP - General Family Medicine 10/02/18
--- OUTSIDE RECORDS SUMMARY | 2025-01-19 12:50 | XMS_ITS | Clinical Summary ---
Author Organization [facility] Address [address], [address] [place] [address] Care Team Providers Care Help Desk Support Specialist Name Role Phone Mabel Conway MD Primary Care Provider [phone] Allergies Active Allergy Reactions Criticality Noted Date [...] Treatment Not on file Insurance Care Teams Help Desk Support Specialist Relationship Specialty Start Date End Date Mabel Conway MD PCP - General Family Medicine 04/10/17
--- OUTSIDE RECORDS SUMMARY | 2025-01-19 12:50 | XMS_ITS | Encounter Summary ---
Author Organization [facility] Address [address] [place] [address] Care Team Providers Care Special Tax Auditor Name Role Phone Mabel Conway MD Primary Care Provider [phone] Nathaniel Lau Unavailable [phone] Nathaniel Lau Unavailable [phone] Source Comments In the event this information is protected by the Federal Confidentiality of Alcohol and Drug AbusePatient Records regulations: The Federal rules restrict any use of the information to criminally investigate or prosecute any alcohol or drug abuse patient.[facility] Encounter Details Date Type Department Care Team (Late st Contact Info) Description 09/03/2018 Get Medical Advice Neurology [address] [place] [address] Anel Robb MD [address] [place] [address] RE: Visit Follow Up Question [...] on filedocumented in this encounter Care Teams Special Tax Auditor Relationship Specialty Start Date End Date Mabel Conway MD [address] [place] [address] PCP - General Family Medicine 04/28/15 Nathaniel Lau [address] [place] [address] Primary Staff Physician Cardiology 07/14/18 Nathaniel Lau [address] [place] [address] Primary Staff Physician Cardiology 07/14/18 documented as of this encounter
--- OUTSIDE RECORDS SUMMARY | 2025-01-19 12:50 | XMS_ITS | Clinical Summary ---
Author Organization [facility] Address [address] [place] [address] Care Team Providers Care Laborer Shellfish Processing Name Role Phone Akil Trammell MD Primary [...] Vaccine (#1) 2024 02/11/2007 [place] [address] [employer] Care Teams Laborer Shellfish Processing Relationship Specialty Start Date End Date Akil Trammell MD PCP - General Family Medicine 08/19/23
--- OUTSIDE RECORDS SUMMARY | 2025-01-19 12:50 | XMS_ITS | Clinical Summary ---
Author Organization [facility] Address [address] [place] [address] Care Team Providers Care Billing Clinician Name Role Phone Akil Trammell MD Primary Care Provider [phone] Allergies Active Allergy Reactions Criticality Noted Date Comments Penicillins Rash Low 01/23/2024 Medications cyproheptadine (Periactin) 4 mg tablet Take 4 mg by mouth. 07/11/2023 Active metoprolol succinate XL (Toprol-XL) 25 mg 24 hr tablet 25 mg. 10/13/2018 Act maritza pantoprazole (ProtoNix) 40 mg EC tablet Take 40 mg by mouth. Active tiZANidine (Zanaflex) 4 mg tablet 4 mg. 12/31/2018 Active ferrous sulfate 325 (65 Fe) MG tablet Take 325 mg by mouth with breakfast. Active Active Problems Problem Noted Date Diagnosed Date Palpitations 01/23/2024 Atypical chest pain 01/23/2024 Essential hypertension 01/23/2024 Obstructive sleep apnea 01/23/2024 Class 2 obesity due to exces s calories without serious comorbidity with body mass index (BMI) of 35.0 to 35.9 in adult 01/23/2024 Family History Medical History Relation Name Comments No Known Problems Father No Known Problems Mother Relation Name Status Comments Father Mother Social History Tobacco Use Types Packs/Day Years Used Date Smoking Tobacco: Never Smokeless Tobacco: Never Alcohol Use Standard Drinks/Week Comments Never 0 (1 standard drink = 0.6 oz pur e alcohol) Comments Unknown Sex and Gender Information Value Date Recorded Sex Assigned at Not on file Legal Sex Female 10:43 PM EDT Gender Identity Not on file Sexual Orientation Not on file Last Filed Vital Signs Vital Sign Reading Time Taken Comments Blood Pressure 126/87 01/23/2024 12:02 PM EDT Pulse 56 01/23/2024 12:02 PM EDT Temperature - - Respiratory Rate - - Oxygen Saturation 98% 01/23/2024 12:02 PM EDT Inhaled Oxygen Concentration - - Weight 100 kg (221 lb) 01/23/2024 12:02 PM EDT Height 167.6 cm (5' 6 ) 01/23/2024 12:02 PM EDT Body Mass Index 35.67 01/23/2024 12:02 PM EDT Plan of Treatment Health Maintenance Due Date Last Done Comments CT Colonography 1961 Colonoscopy 1961 Colorectal Cancer Screening 1960 FIT-DNA 1961 FIT 1961 FOBT 1961 Sigmoidoscopy 1961 Depression Screening 1973 Pap Smear 1982 Cervical Cancer Screening 10/02/1991 HPV/Cotest 10/02/1991 Mammogram 2001 Zoster Vaccines (1 of 2) 10/02/2011 COVID-19 Vaccine (3 2024-2 6 season) 2024 03/14/2021, 09/26/2020 Influenza Vaccine (#1) 2024 02/11/2007 Adult Tetanus 10/18/2026 10/18/2016 HIB Vaccines Aged Out No longer eligi ble based on patient's age to complete this topic HPV Vaccines Aged Out No longer eligi ble based on patient's age to complete this topic IPV Vaccines Aged Out No longer eligi ble based on patient's age to complete this topic Meningococcal B Vaccine Aged Out No l onger eligible based on patient's age to complete this topic Meningococcal Vaccine Aged Out No len marlen eligible based on patient's age to complete this topic Pneumococcal Vaccine: Pediatrics (0 to 5 Years) and At-Risk Patients (6 to 64 Years) Aged Out No longer eligible b ased on patient's age to complete this topic Rotavirus Vaccines Aged Out No longer eligible based on patient's age to complete this topic Insurance [employer] Care Teams Billing Clinician Relationship Specialty Start Date End Date Akil Trammell MD [address] [facility] [address] [address] PCP - General 01/23/24
--- OUTSIDE RECORDS SUMMARY | 2025-01-19 12:50 | XMS_ITS | Patient Health Record ---
Author Organization [facility] [place] Address [address] [place] [address] Care Team Providers Care Political Researcher Name Role Phone Cristo Barnett Primary Care Provider [phone] Allergies Allergen (clinical drug ingredient) Drug/Non Drug Allergy documented on EMR Reaction Allergy Type Onset Date Status Penicillin rash Drug Allergy Active Results Component Value Reference Range Notes XR hand RT 2V Reviewed date:12/07/2024 08:06:44 PM Interpretation: Performing Lab: Notes/Report: Source Facility: [place] [address] XRay Report Signed Patient: MONET HANNAH MR#: [id number] : 1960 Acct:[id number] Age/Sex: 64 / F ADM Date: 12/07/24 Loc: RAD Attending Dr: Ginny Barnett M.D. Ordering Physician: Ginny Barnett M.D. Date of Service: 12/07/24 Procedure(s): XR hand RT 2V Accession Number(s): [id number] cc: Ginny Barnett M.D. [place] [id number] Patient Name: MONET HANNAH MRN: [id number] date: 1960 Sex: F Assigned Patient Location: RAD Current Patient Location: RAD Accession/Order Number: [id number] Exam Date: 12/07/2024 12:23 Report Date: 12/07/2024 12:24 At the request of: GINNY BARNETT MD Procedure: XR hand RT 2V RIGHT HAND - 2 views REASON FOR EXAM: Thumb pain COMPARISON: None FINDINGS: No focal soft tissue abnormality or acute bony process. Moderate degenerative changes involving the scaphotrapezial joint, CMC joint of the thumb as well as the IP joint of the thumb. No bony erosions. XR/XR hand RT 2V IMPRESSION: DEGENERATIVE CHANGES INVOLVING THE CARPUS AND THUMB WITHOUT ACUTE BONY PROCESS. Impression dictated by: John Lorenzo Jr., D.O. 12/07/2024 12:24 PM Dictation Location: [place] [address] Electronically authenticated by: [id number] Y Date: 12/07/2024 12:24 Dictated By: John Lorenzo M.D. Signed By: 12/07/24 1226 DD/ 1224 TD/TT: Telemarketing Agent: Reason For Referral Diagnosis 1 Thumb pain, right (M 79.644) Referral Organization [facility] Referring Provider First Name Cristo Referring Provider Last Name Jp Referring Provider Speciality Family [facility] icine Referred Provider [facility] Referred Provider Specialty Occupational Therapy Referral Priority Routine Medications Medication SIG (Take, Route, Frequency, Duration) Notes Start Date End Date Status Metoprolol Succinate ER 25 MG TAKE 1 TABLET BY MOUTH ONCE DAILY Orally Once a day; Duration: 90 days Active tiZANidine HCl 4 MG TAKE 1 TABLET BY GREGG TH AT BEDTIME Orally Once a day; Duration: 90 days Active Ferrous Sulfate 325 (65 Fe) MG 1 tablet Orally twice daily 12/19/2023 Active Cyproheptadine HCl 4 MG 1 tablet Orally once daily; Duration: 30 days Active predniSONE 20 MG 3 tablets Orally Onc e a day; Duration: 5 days 12/23/2024 Active Social History Tobacco Use: Social History [...] Problem Status W/U Status Risk Notes Problem Obstructive sleep apnea syndrome (disorder) (10365898) Obstructive sleep apnea (adult) (pediatric) (G47.33) Active confirmed Problem Chest pain (41577221) Chest pain (R07.9) Active confirmed Problem Hypothyroidism (32545247) Hypothyroidism (E03.9) Active confirmed Problem Well adult (526419765) Well adult (Z00.00) Active confirmed Problem Cellulitis (393657797) Cellulitis (L03.90) Active confirmed Problem Pain in limb (24798291) Thumb pain, right (M79.644) Active confirmed Vital Signs Blood pressure diastolic 90 mm Hg 12/23/2024 Height 66 in 12/23/2024 Blood pressure systolic 122 mm Hg 12/23/2024 Weight 258.4 lbs 12/23/2024 BMI 41.7 kg/m2 12/23/2024 Encounters Encounter Location Date Provider Diagnosis [place] [address] [place] [address] 12/07/2024 Cristo Hoy Thumb pain, right M79.644 [address] [place] [place] [address] 12/23/2024 Cristo Hoy Thumb pain, right M79.644 [address] [place] [address] 07/14/2024 Cristo Hoy Cellulitis L03.90 [address] [place] [address] 02/10/2024 Cristo Hoy Well adult Z00.00 [facility] [address] [place] [facility] [place] [address] 02/17/2024 Cristo Hoy Well adult Z00.00 [facility] [address] [place] [place] [address] 11/08/2024 Cristo Hoy Well adult Z00.00 [place] [address] [facility] [address] 12/07/2024 Cristo Hoy Thumb pain, right M79.644 [address] [place] [address] 12/23/2024 Cristo Tylercarlos [facility] [address] [facility] [place] [address] 12/23/2024 Cristo Barnett [facility] [address] [facility] [place] [address] 01/10/2025 Cristo Barnett Assessments Encounter Date Diagnosis (ICD Code) Assessment Notes Treatment Notes Treatment Clinical Notes Section Notes 07/14/2024 Cellulitis (ICD-10 - L03.90) 12/07/2024 Thumb pain, right (ICD-10 - M79.644) 12/23/2024 Thumb pain, right (ICD-10 - M79.644) 02/10/2024 Well adult (ICD-10 - Z00.00) 02/17/2024 Well adult (ICD-10 - Z00.00) 11/08/2024 Well adult (ICD-10 - Z00.00) 12/07/2024 Thumb pain, right (ICD-10 - M79.644) Plan Of Treatment Pending Test Test Name [...] Imagi ng 12/01/2023 STOOL OCCULT BLOOD 10/07/2022 XR Hand 2 Views Right 12/07/2024 AMYLASE 10/10/2022 CBC AUTO DIFF 10/10/2022 CBC AUTO DIFF 12/18/2023 LIPASE 10/10/2022 PROF 14(COMP METB) 10/10/2022 SNR 04 URINALYSIS 10/10/2022 URINE MICROSCOPIC ONLY 10/10/2022 THYROID PANEL (T4/TSH/FREE T3) 4 THYROID PANEL (T4/TSH/FREE T3) 3 Holter Monitor - 3 days up to 14 days XR HIP RT 2 3V W PELVIS 12/07/2024 MRI HAND RIGHT WO CONTRAST 12/07/2024 Insurance Providers Payer Name Payer Address Payer Phone Subscriber Number Group Number Insured Name Patient Relationship to Insured Coverage Start Date Coverage End Date [facility] [address] [place] [phone] [id number] Lefty Hannah Spouse - patient is the spouse of the insured Medical (General) History Medical History History ICD Code Cervical disc disease M50.90 Hemorrhoids K64.9 Lumbar radiculopathy M54.16 Palpitation R00.2 Surgical History Surgery Date(Month/Year) Tubes tied TONSILLECTOMY,UNDER 12YRS CHOLECYSTECTOMY 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
--- NOTE | 2025-01-19 12:55 | MM_ITS ---
Patient Name: ERNA MONTANEZ MR#: [id number] : 1960 Exam Date: 01/19/2025 Ordering Doctor: DR GINNY BARNETT . RADIOLOGY REPORT PROCEDURE: MM TOMOSYNTHESIS SCREENING BI COMPARISON: MM TOMOSYNTHESIS SCREENING BI, 10/14/2023. MG MAMM SCREEN 3D JUAN CAD, 07/16/2022. MG MAMM SCREEN 3D JUAN CAD, 12/25/2020. MG MAMM JUAN SCRN W CAD DIG, 12/01/2012. INDICATIONS: Screening Calculator Name NCI Breast Cancer Risk Assessment Tool 5 Year Breast Cancer Risk 1.00% Lifetime Breast Cancer Risk 4.40% Personal Breast Cancer No Personal Ovarian Cancer No Treatments None Family Cancers Aunt-paternal with breast cancer at age 40; Aunt-paternal with breast cancer at age 40; Father with sinus cancer at age 70; Mother with lymohoma cancer at age 58. LOCATION: [facility] BREAST COMPOSITION: There are scattered areas of fibroglandular density. FINDINGS: RIGHT BREAST: No significant suspicious finding. There is a similar focal asymmetry. Benign-appearing lymph nodes within along the right chest wall . LEFT BREAST: No significant suspicious finding. There is a similar focal asymmetry. Benign-appearing lymph nodes are noted along left chest wall . DIAGNOSTIC CATEGORY 2--BENIGN FINDING. NO CHANGE FROM COMPARISON. RECOMMENDATIONS: ROUTINE MAMMOGRAM AND CLINICAL EVALUATION IN 12 MONTHS. Dictated by: Karsten Hines MD on 01/19/2025 at 15:06 Approved by: Karsten Hines MD on 01/19/2025 at 15:08
--- NOTE | 2025-01-19 12:55 | MR_ITS ---
The [address] [address] Patient Name: ERNA MONTANEZ MRN: [id number] date: 1960 Sex: F Assigned Patient Location: MRI Current Patient Location: MRI Accession/Order Number: [id number] Exam Date: 01/19/2025 13:00 Report Date: 01/19/2025 14:27 At the request of: GINNY BARNETT MD Procedure: MR hand RT wo con MR hand RT wo con 01/19/2025 1:49 PM SIGNS AND SYMPTOMS: Right Thumb numbness with palpable lump along the palmar surface PROTOCOL: Multiplanar multisequence MR images of the right hand/thumb without IV contrast COMPARISON: 12/07/2024 FINDINGS: Alignment: Normal Fluid: Carpus effusion: None. Distal radioulnar joint effusion: None. Intrinsic ligaments: Scapholunate: Intact. Lunotriquetral: Intact. Ulnar side: Triangular fibrocartilage: Incompletely visualized.. Lunate facet: Subcortical cystic changes are noted Hamate-lunate: Normal. Extensor compartment: I: Intact. II: Intact. III: Intact. IV: Intact. V: Intact. : Intact. Flexor compartment: Carpal tunnel: Median nerve: Normal. Flexor retinaculum: Intact. Flexor tendons: Intact. Guyon canal: Normal. Articular: Thumb carpometacarpal joint: Moderate degenerative changes are noted at the thumb carpometacarpal junction.. Scaphotrapeziotrapezoidal joint: Subcortical cystic changes noted within the head of the scaphoid.. Pisiform-triquetral joint: Normal. Bones (other than subarticular marrow): There is narrowing of the interphalangeal joint of the thumb. Muscles: Normal. Vessels: Normal. MR/MR hand RT wo con IMPRESSION: No evidence of mass. Degenerative changes are noted at the first carpometacarpal junction and along the interphalangeal joint of the thumb. Degenerative changes are also noted within the lunate and scaphoid within the wrists. The median nerve is normal in signal and diameter within the carpal tunnel. Impression dictated by: Karsten Hines M.D. 01/19/2025 2:27 PM Dictation Location: [place] [address] Electronically authenticated by: [id number] Y Date: 01/19/2025 14:27
--- OUTSIDE RECORDS SUMMARY | 2025-01-19 12:58 | XMS_ITS | CCD ---
Author Organization [facility] CliniSyva Care Team Providers Care Wireless Retail Manager Name Role Phone PHYSICIAN, DEFAULT Unavailable Unavailable PHYSICIAN, DEFAULT Unavailable Unavailable ANEL ROBB Attending Unavailable MABEL GALVAN Referring Unavailable PRISCILLA CHACON Referring Unavail able MABEL GALVAN Primary Care Unavailable WILL TINOCO Referring Unavailkahlil GALVAN, MABEL Primary Care Unavailable WILL TINOCO Referring Unavailkahlil GALVAN, MABEL Primary Care Unavailable Mabel Galvan Primary Care Provider [phone] Andie Leger Unavailable ERICKA ., DR GROSS Consulting Unavailable HOY ., [...] KING Attending Unavailable OLINDA HAND Attending Unavailable Mabel Galvan MD Primary Care Provider [phone] Chiara Lance APRN Attending Provider Misty Pérez APRN Attending Provider Allergies Allergy Classification Reported Allergen(s) Allergy Type Date of Onset Reaction(s) Facility (1 source) Penicillin; Translations: [PENICILLIN] Drug Allergy 07-25-19 18 [facility] Repository (4 sources) Penicillins; Translations: [PENICILLINS] Propensity to adverse reactions to drug 12-07-19 17 Rash [place], [place] (7 sources) Sulfamethoxazole / Trimethoprim Drug Allergy 02-19-20 17 Nausea And Vomiting [place], [place] (8 sources) Penicillin G Drug Allergy 07-11-19 24 hives [facility] (1 source) Penicillins Drug allergy (disorder) 10-17-19 16 [facility] Repository (2 sources) Cephalexin Drug Allergy rash [employer] Other (2 sources) Cephalexin Drug Allergy 07-11-19 24 rash [facility] (2 sources) Sulfamethoxazole Drug Allergy 07-11-19 24 nausea and vomiting [facility] (2 sources) Trimethoprim Drug Allergy 07-11-19 24 nausea and vomiting [facility] Medications Current Medications Medication Drug Class(es) Dates Sig (Normalized) Sig (Original) [id number] actuat albuterol 0.09 mg/actuat metered dose [...] needed Inhalation every 4 hrs Jun, Not-Taking cyproheptadine hydrochloride 4 mg oral tablet (8 sources) Start: 07-11-2023 take 1 tablet by mouth once daily at bedtime Cyproheptadine 4 mg tablet Active 4 MG PO Daily at bedtime July 11, 2023 12:00am Complies with drug therapy Cyproheptadine H Cl Active fluticasone propionate 0.05 mg/actuat metered dose nasal spray (1 source) Corticosteroid Start: 02-03-2023 take 2 spray(s) nasal route once daily Fluticasone Propionate 50 MCG/ACT 2 sprays Nasally Once a day for 14 day(s) Jan, Active 24 hr metoprolol succinate 25 mg extended release oral tablet (9 sources) beta-Adrenergic Janice Start: 10-13-2018 take 1 tablet by mouth once daily Metoprolol Succinate 25 mg tablet extended release 24 hr Active 25 MG PO Daily October 13, 2018 12:00am Complies with drug therapy take 0.5 tablet by m outh once daily at mealtime Metoprolol Tartrate 25 MG 1/2 tablet wit h food Orally Once a day for 30 day(s) Active predniSONE 20 mg oral tablet (8 sources) Start: 09-09-2022 take 1 tablet by mouth every twelve hours predniSONE 20 MG 1 tablet Orally bid for 5 day(s) Jan, Active tiZANidine 4 mg oral tablet (9 sources) Central alpha-2 Adrenergic Agonist Start: 07-11-2023 Tizanidine 4 mg tablet Active 4 MG PO every 6 to 8 hours July 11, 2023 12:00am Complies with drug therapy Start: 12-31-2018 take 1 tablet by whit th once daily tiZANidine (ZANAFLEX) 4 MG tablet Take 4 mg by mouth nightly 1 12/31/2018 Active tiZANidine HCl A ctive Completed/Discontinued Medications Medication Drug Class(es) Dates Sig (Normalized) Sig (Original) acetaminophen 325 mg / HYDROcodone bitartrate 5 mg oral tablet (2 sources) Opioid Agonist Start: 10-17-2018 End: 07-11-2023 take 1 tablet by mouth every eight hours as needed for pain Hydrocodone-Acetam inophen ([place]) 5-325 mg tablet Discontinued 1 TAB PO Q8H as needed for pain 10 3 October 17, 2018 July 11, 2023 4:17pm azithromycin 250 mg oral tablet (10 sources) Macrolide Antimicrobial Start: 07-11-2023 End: 10-17-2024 take 2 tablets by mouth once daily, then take 1 tablet by mouth once daily Azithromycin (Zithromax Z-Chan) 250 mg tablet Discontinued 250 MG PO Daily 6 July 16, 2023 12:00am October 17, 2024 12:36pm take 2 tabs today and 1 daily for the next 4 days Start: 09-09-2022 Azithromycin 2 50 MG 2 tablet on first day, 1 tablet daily for 4 days Orally daily for 5 days Oct, Not-Taking Start: 09-09-2022 cephalexin 500 mg oral capsule (6 sources) Cephalosporin Antibacterial Start: 11-03-2022 take 1 [...] Discontinued 500 MG PO Twice daily 10 October 17, 2018 12:00am July 11, 2023 4:16pm doxycycline monohydrate 100 mg oral capsule (7 sources) Tetracycline-class Drug Start: 10-17-2024 End: 12-01-2024 take 1 capsule by mouth twice daily Doxycycline Monohydrate 100 mg capsule Discontinued 100 MG PO Twice daily October 17, 2024 12:00am December 01, 2024 9:59am Start: 07-07-2021 take 1 capsule by mo uth every twelve hours Doxycycline Monohydrate 100 MG 1 capsule Orally every 12 hrs for 7 days Jun, Not-Taking famotidine 20 mg oral tablet (2 sources) Histamine-2 Receptor Antagonist Start: 10-17-2018 End: 07-11-2023 take 1 tablet by mouth twice daily Famotidine (Pepcid) 20 mg tablet Discontinued 20 MG PO Twice daily October 17, 2018 12:00am July 11, 2023 4:16pm methylPREDNISolone 4 mg oral tablet (6 sources) Corticosteroid Start: 07-07-2021 methylPREDNISolone 4 MG as directed Orally Once a day for 6 days Jun, Not-Taking pantoprazole 40 mg delayed release oral tablet (9 sources) Proton Pump Inhibitor Start: 12-01-2024 End: 12-01-2024 take 1 tablet by mouth once daily Pantoprazole 40 mg tablet,delayed release (DR/EC) Discontinued 40 MG PO Daily December 01, 2024 12:00am December 01, 2024 9:59am Start: 07-11-2023 End: 10-17-2024 Pantoprazole 40 mg tablet,de layed release (DR/EC) Discontinued MG PO July 11, 2023 12:00am October 17, 2024 12:36pm Start: 07-11-2023 Pantoprazole A ctive MG PO July 11, 2023 12:00am Pantoprazole Sod ium Active Triamcinolone (5 sources) Corticosteroid Start: 09-03-2018 KENALOG - 10 m g August, 80 mg Problems Active Problems Problem [...] persistent headache (NDPH)] Chronic Headache; including migraine (2 sources) Headache; Translations: [Headache] 04-09-2023 Episodic Comment on above: Problem List clean-u p per request of Phys. EHR Cmte Menstrual disorders (1 source) Irregular periods; Translations: [Irregular uterine bleeding] Chronic Other aftercare (2 sources) Wound ; Translations: [Encounter for other specified surgical aftercare] 04-09-2023 Episodic Comment on above: Problem List clean-u p per request of Phys. EHR Cmte Other and unspecified benign neoplasm (2 sources) Leiomyoma; Translations: [Benign neoplasm of connective and other soft tissue, unspecified] 07-11-2023 Episodic Other circulatory disease (8 sources) Vasculitis; Translations: [Arteritis, unspecified] 07-11-2023 Chronic Other gastrointestinal disorders (6 sources) Swollen abdomen; Translations: [Abdominal distension (gaseous)] Episodic Other nutritional; endocrine; and metabolic disorders (6 sources) Obese class II; Translations: [Body mass index (BMI) 39.0-39.9, adult] Chronic Other nutritional; endocrine; and metabolic disorders (6 sources) Obesity; Translations: [Obesity, unspecified] Chronic Other nutritional; endocrine; and metabolic disorders (2 sources) Body mass index 30+ - obesity; Translations: [...] unspecified Episodic Otitis media and related conditions (7 sources) Otitis media, unspecified, right ear; Translations: [...] Spondylosis; intervertebral disc disorders; other back problems (2 sources) Degeneration of intervertebral disc; Translations: [Degeneration of intervertebral disc] 07-11-2023 Chronic Spondylosis; intervertebral disc disorders; other back problems (4 sources) Radiculopathy, lumbar region; Translations: [RADICULOPATHY LUMBAR REGION] Onset: 07-19-2022 Episodic Systemic lupus erythematosus and connective tissue disorders (8 sources) Temporal arteritis; Translations: [Other giant cell arteritis] 07-11-2023 Chronic Thyroid disorders (8 sources) Subclinical hyperthyroidism; Translations: [Thyrotoxicosis, unspecified without [...] Range Facility Office Visiton 01-23-2024 Follow-up visit [id number] Monet Montanez 1960 F Date Provider Department Center 01/23/2024 [id number] HAND [facility] Family History Problem Relation Age of Onset No Known Problems Mother No Known Problems Father Family Status - Relation Status Age at Mother Father Level of Service:05248 IN OFFICE/OUTPATIENT NEW MODERATE MDM 45 MINUTES Reason for Visit and Comments: New Patient [632] - Pt is having palpatations, and chest pain. Dr Trammell Referral. Normal [facility] MRI LSPINE WO CONon 07-20-19 MRI LSPINE [...] STEVENSON WATSON Date: 2022-07-19 15:01 Normal [facility] MG MAMM SCREEN 3D JUAN CADon 07-16-2022 MG MAMM SCREEN 3D JUAN CAD Patient: MONET MONTANEZ Exam Date: 07/16/2022 : 1960 Gender:F Ordering : DR GINNY TRAMMELL . Admission #: [id number] Family : Order #: [id number] CLICK HERE TO VIEW EXAM RADIOLOGY REPORT [...] lymohoma cancer at age 59. LOCATION: [facility] BREAST COMPOSITION: Scattered areas fibroglandular density. [...] Watson M.D. on 07/16/2022 at 16:18 Normal [facility] XR LSPINE MIN 4 VIEWSon XR LSPINE MIN 4 VIEWS EXAMINATION: XR [...] by: STEVENSON WATSON Date: 2022-07-03 16:36 Normal [facility] Quick Fluon 08-06-2021 FLUAV Ab CF (S) [Titer] Negative [employer] Other FLUBV Ab CF (S) [Titer] neagtive [facility] [employer] Other Coding Summary.on 06-23-2019 Coding Summary. CODING DATE: 06/23/[address] [facility] STATUS: Home (Routine DC) PAYOR: [facility] [place] ADMIT DX: REASON FOR VISIT DX: Z09 Encounter for follow-up examination after completed treatment for conditions other than malignant neoplasm FINAL DX: PRINCIPAL: Z09 Encounter for follow-up examination after completed treatment for conditions other than malignant neoplasm SECONDARY: M54.2 Cervicalgia G43.909 Migraine, unspecified, not intractable, without status migrainosus Z79.899 Other halfway (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 However, the narrative phrase printed from the coding software may appear abbreviated, or result in slightly different terminology. Coded By: Moraima Jessica CphT Date Saved: 06/23/2019 10:03 am Normal [facility] Consultation Noteon 06-22-19 Consultation Note Patient: [...] All Problems HTN (hypertension) / SNOMED CT 0917086073 / Confirmed Migraine headache / SNOMED CT 45442211 / Confirmed Pelvic kidney / SNOMED CT 11876464 / Confirmed Histories Past Medical History: No active or resolved past medical history items have been selected or recorded. Family History: No family history items have been selected or recorded. Procedure history: Cholecystectomy (SNOMED CT 57155669). Comments: 06/22/2019 14:50 EST - Day Anel MEDINA 1994 Dr Morgan @[place] Tubal ligation (SNOMED CT 430570794). Comments: 06/22/2019 14:51 EST - Day Anel MEDINA 1993 [place] Temporal artery biopsy (SNOMED CT 4516731770). Comments: 06/22/2019 14:51 EST - Day Anel [...] office on a as needed basis. Normal [facility] Comment on above: Result Comment: Elec tronically Signed By: Cynthia VALDEZ, Jane\.br\Date and Time Signed: 06/22/19 15:45 EST\.br\Electronically Co-Signed By: Willis Varela MD\.br\Date and Time Co-Signed: 06/23/19 00:38 EST Follicle Stim. Hormon 2018 Follicle Stim. Horm 33.4 U/L Normal 25.8-134.8 [facility] Comment on above: Result Comment: Refe rence Range: Male: 1.5-12.4 Ovulating Female: Follicular Phase 3.5-12.5 Ovulation Phase 4.7-21.5 Luteal Phase 1.7-7.7 Postmenopausal Female: 25.8-134.8 Performed By: #### F #### [address] [place], [place] [id number] Hydro Excavation Operator: Ky Estrada MD Follicle Stimulating Hormone on 01-05-2019 FSH 33.4 U/L 25.8 - 134.8 U/L [place], [place] Comment on above: Reference Range: Male: 1.5-12.4 Ovulating Female: Follicular Phase 3.5-12.5 Ovulation Phase 4.7-21.5 Luteal Phase 1.7-7.7 Postmenopausal Female: 25.8-134.8 US PELVIS COMPLETEon 019 US PELVIS COMPLETE EXAMINATION: Ultrasound pelvis complete 10/06/2018 TECHNIQUE: Transabdominal and transvaginal pelvic ultrasound was performed. COMPARISON: CT abdomen and pelvis May 01, 2017 HISTORY: Postmenopausal bleeding Mercury Cracking Tester indicates irregular postmenopausal bleeding FINDINGS: Measurements: Uterus: [...] Pierre Zamarripa MD 10/06/18 Final result Normal [facility] Cytologyon 09-30-2018 Cytology (NOTE) [id number] [facility] ANATOMIC PATHOLOGY [address] [place] [address]. [place], [place] [address] GYNECOLOGIC CYTOLOGY REPORT Patient Name: MONET MONTANEZ MR#: [id number] Specimen #[id number] Source: 1: Cervical material, (ThinPrep vial, Imaging-assisted review) Clinical History N95.0 Postmenopausal bleeding High Risk HPV DNA testing is requested if the diagnosis is ASC-US LMP: 09/14/18 INTERPRETATION Cervical material, (ThinPrep vial, Imaging-assisted review): Specimen Adequacy: Satisfactory for evaluation. - Endocervical/transfor mation zone component present. Descriptive Diagnosis: Negative for intraepithelial lesion or malignancy. Bench Shear Operator: SERGIO Boland(ASCP) Electronically Signed Out /10/06/2018 [facility] Comment on above: Performed By: #### P PPVP #### [address] [address] Hydro Excavation Operator: MD HARSHA LopezOon 08-19-2018 CNCO Letter Text Normal [place] [facility] CNOVon 08-19-2018 CNOV Office Visit (LYNNN ) MONET MONTANEZ ([id number]) 1960 F Date Time Provider Department 08/19/18 11:00 AM ANEL ROBB During your visit today, we recorded the following information about you: Pulse Blood pressure Weight Height 83/minute 140/93 108.4 kg 1.676 m Anel Robb MD 08/19/2018 12:22 PM Signed Mabel Galvan MD ([facility]) [facility] [facility] [address] PCP: Mabel Galvan MD Accompanied by: Self [...] and MRI neck.- reviewd and uploaded to [facility] Records reviewed: yes Family History: FAMILY [...] in rate, volume and articulation. Short and halfway memory, cognition and general fund of knowledge [...] it is Hemicrania Continua, but it may glove turner to be NDPH with the remembered onset. IHS diagnosis based on current history and exam: (G44.51) Hemicrania continua (primary encounter diagnosis) Plan: Discussed all options for treatment. Please obtain generic omeprazole (20 mg) [Lexity, Forterra Systemss, NanoHoriz[employer]s Club, etc] and start one daily. You [...] pain, and counseling about diet, medications, and halfway implications. The patient has my contact information and my chart sign up information. MD Anel Wong MD 08/19/2018 11:44 AM Signed Week 1: -Please obtain generic omeprazole (20 mg) [Lexity, AppSpotr, CINEPASS Club, etc] and start one daily. You [...] ensuing treatment plans will be released via Henable and discussed during your follow-up appointment. Follow-up appointments are primarily provided by the Nurse Practioners and Physician?s Assistants in order to provide timely, accessible care. MyChart: Please ask the schedulers to give you an activation code. The main way of communication is by [employer] Computing[employer] rather than phone lines, so if you have not signed up, please do so. Tomo Clasest is also the way that you can review your labs and testing. We are not able to contact everyone to tell them results are normal. If you do not hear back from us regarding testing you have had, it should be considered normal or within normal range. If you have any questions about the results, you are free to message us. ? [employer]o Clasest is meant for simple questions regarding medications, possible side effects, or other simple straight forward questions in limited sentences, rather than multiple paragraphs of discussion. Henable is not meant for, or efficient for [...] WEBCAM CONNECTED: 1. Go to the URL: [email or web address] 2. Click on Sign Up and Create a patient account for yourself. 3. Please also follow the links to ?Test My Computer?. 4. Follow the steps suggested, testing your Internet Speed, Webcam, Microphone, Speaker, and your video software. 5. Please make sure your video software is up-to-date. This is a safe, [facility] approved download, and will not harm your computer. ? ON AN IPHONE, IPAD, OR ANDROID DEVICE: 1. Open up the Sylvester Store or Google VersionEyetore and search [facility] Amara Online. 2. Download and Install the Application. 3. Tap on Sign Up and create a patient account for yourself. 4. Please use an e-mail address that you frequently check, as you will receive an e-mail appointment from [facility] Amara Online. ? Find our user guide, here: [email or web address] ? Important: Don?t forget your password you [...] connected to the provider. ? Please call [phone] prior to your visit if you have [...] your PCP/referring physician. Referring Provider: MABEL GALVAN [[id number]] Allergies As of Date: 08/19/2018 Noted Allergy [...] 1: -Please obtain generic omeprazole (20 mg) [Lexity, AppSpot[employer], [employer]PASS Club, etc] and start one daily. You [...] ensuing treatment plans will be released via Henable and discussed during your follow-up appointment. Follow-up appointments are primarily provided by the Nurse Practioners and Physician?s Assistants in order to provide timely, accessible care. MyChart: Please ask the schedulers to give you an activation code. The main way of communication is by [employer] rather than phone lines, so if you have not signed up, please do so. Tomo Clasest is also the way that you can review your labs and testing. We are not able to contact everyone to tell them results are normal. If you do not hear back from us regarding testing you have had, it should be considered normal or within normal range. If you have any questions about the results, you are free to message us. ? [employer]est is meant for simple questions regarding medications, possible side effects, or other simple straight forward questions in limited sentences, rather than multiple paragraphs of discussion. [employer]est is not meant for, or efficient for [...] new mobile (iPhone or Android) or computer Gazoob Online appointment. The MyCare Online appointment is fast, easy and confidential. The benefits include no waiting in the lobby, no travel and parking costs, no facility fee and no co-pay. The cost is $55. The schedulers can provide you with details regarding [employer] Online. This service, Express Care Online, is easily accessible through your mobile device or a desktop/laptop with a browser and internet connection. ? HOW DO I GET STARTED? ? ON A DESKTOP OR LAPTOP COMPUTER WITH A WEBCAM CONNECTED: 1. Go to the URL: [facility] hospital[facility] [email or web address]-PAX [email or web address] 2. Click on Sign Up and Create a patient account for yourself. 3. Please also follow the links to ?Test My Computer?. 4. Follow the steps suggested, testing your Internet Speed, Webcam, Microphone, Speaker, and your video software. 5. Please make sure your video software is up-to-date. This is a safe, [facility] approved download, and will not harm your computer. ? ON AN IPHONE, IPAD, OR ANDROID DEVICE: 1. Open up the Sylvester Store or Bravoavia and search [facility] Palkion Care Online. 2. Download and Install the Application. 3. Tap on Sign Up and create a patient account for yourself. 4. Please use an e-mail address that you frequently check, as you will receive an e-mail appointment from [facility] Palkion Care Online. ? Find our user guide, here: [email or web address] ? Important: Don?t forget your password you [...] connected to the provider. ? Please call [phone] prior to your visit if you have [...] ROBB MD on 08/19/18 Normal [facility] HISTORY PHYSICALon HISTORY PHYSICAL HNO ID: [id number] Author: Anel Robb Service: ? Author Type: Physician Type: HANDP Filed: 08/19/2018 12:22 PM Note Text: Mabel Galvan MD ([facility]) [address] [facility] [address] PCP: Mabel Galvan MD Accompanied by: Self [...] and MRI neck.- reviewd and uploaded to [facility] Records reviewed: yes Family History: FAMILY [...] in rate, volume and articulation. Short and halfway memory, cognition and general fund of knowledge [...] it is Hemicrania Continua, but it may glove turner to be NDPH with the remembered [...] pain, and counseling about diet, medications, and emt intermediate implications. The patient has my contact information and my chart sign up information. Anel Robb MD [facility] MR-MR angio head wo con IMPO RTon 05-25-2018 MR-MR angio head wo con IMPORT Images were obtained outside of [facility] [id number] N [facility] IN-MRI BRAIN WO CON IMPORTon 02-25-2018 IN-MRI BRAIN WO CON IMPORT Images were obtained outside of [facility] [id number] N [facility] IN-MRI C-SPINE WO CON IMPORT on 02-25-2018 IN-MRI C-SPINE WO CON IMPORT Images were obtained outside of [facility] [id number] N Normal [facility] Vital Signs Date Time Vital Sign Value Performing Clinician Facility 12-01-2024 09:10-0400 Body height 167.64 cm Mabel Galvan MD Work Phone: [facility] 12-01-2024 09:10-0400 Body mass index (BMI) [Ratio] 40.8 kg/m2 Mabel Galvan MD Work Phone: [facility] 12-01-2024 09:10-0400 Body weight 114.98 kg Mabel Galvan MD Work Phone: [facility] 12-01-2024 09:10-0400 Diastolic blood pressure 80 mm[Hg] Mabel Galvan MD Work Phone: [facility] 12-01-2024 09:10-0400 Heart rate 72 /min Mabel Galvan MD Work Phone: [facility] 12-01-2024 09:10-0400 SaO2% (BldA) [Mass fraction] 97 % Mabel Galvan MD Work Phone: [facility] 12-01-2024 09:10-0400 Systolic blood pressure 124 mm[Hg] Mabel Galvan MD Work Phone: [facility] 10-17-2024 12:34-0400 Body height 167.64 cm Mabel Galvan MD Work Phone: [facility] 10-17-2024 12:34-0400 Body mass index (BMI) [Ratio] 41.1 kg/m2 Mabel Galvan MD Work Phone: [facility] 10-17-2024 12:34-0400 Body temperature 98.3 [degF] Mabel Galvan MD Work Phone: [facility] 10-17-2024 12:34-0400 Body weight 115.66 kg Mabel Galvan MD Work Phone: [facility] 10-17-2024 12:34-0400 Diastolic blood pressure 89 mm[Hg] Mabel Galvan MD Work Phone: [facility] 10-17-2024 12:34-0400 Heart rate 72 /min Mabel Galvan MD Work Phone: [facility] 10-17-2024 12:34-0400 Respiratory rate 18 /min Mabel Galvan MD Work Phone: [facility] 10-17-2024 12:34-0400 SaO2% (BldA) [Mass fraction] 98 % Mabel Galvan MD Work Phone: [facility] 10-17-2024 12:34-0400 Systolic blood pressure 143 mm[Hg] Mabel Galvan MD Work Phone: [facility] 07-11-2023 16:24-0400 Body height 2011.68 cm [facility] 07-11-2023 16:24-0400 Body mass index (BMI) [Ratio] 0.3 kg/m2 [facility] 07-11-2023 16:24-0400 Body temperature 98.5 [degF] [facility] 07-11-2023 16:24-0400 Body weight 114.3 kg [facility] 07-11-2023 16:24-0400 Diastolic blood pressure 85 mm[Hg] [facility] 07-11-2023 16:24-0400 Heart rate 83 /min [facility] 07-11-2023 16:24-0400 Respiratory rate 18 /min [facility] 07-11-2023 16:24-0400 SaO2% (BldA) [Mass fraction] 95 % [facility] 07-11-2023 16:24-0400 Systolic blood pressure 148 mm[Hg] [facility] 02-03-2023 12:20-0400 Body height 167.64 cm Veronica Crocker Other [employer] Other 02-03-2023 12:20-0400 Body mass index (BMI) [Ratio] 40.31 kg/m2 Veronica Lizzette Other [employer] Other 02-03-2023 12:20-0400 Body temperature 99.4 [degF] Veronica Lizzette Other [employer] Other 02-03-2023 12:20-0400 Body weight 113.31 kg Veronica Lizzette Other [employer] Other 02-03-2023 12:20-0400 Diastolic blood pressure 88 mm[Hg] Veronica Lizzette Other [employer] Other 02-03-2023 12:20-0400 Respiratory rate 18 /min Veronica Lizzette Other [employer] Other 02-03-2023 12:20-0400 SaO2% (BldA) [Mass fraction] 96 % Veronica Lizzette Other [employer] Other 02-03-2023 12:20-0400 Systolic blood pressure 128 mm[Hg] Veronica Lizzette Other [employer] Other 11-03-2022 12:35-0400 Body height 167.64 cm Veronica Lizzette Other [employer] Other 11-03-2022 12:35-0400 Body mass index (BMI) [Ratio] 40.51 kg/m2 Veronica Lizzette Other [employer] Other 11-03-2022 12:35-0400 Body temperature 97.9 [degF] Veronica Lizzette Other [employer] Other 11-03-2022 12:35-0400 Body weight 113.85 kg Veronica Lizzette Other [employer] Other 11-03-2022 12:35-0400 Respiratory rate 18 /min Veronica Lizzette Other [employer] Other 11-03-2022 12:35-0400 SaO2% (BldA) [Mass fraction] 97 % Veronica Lizzette Other [employer] Other 09-09-2022 13:45-0400 Body height 167.64 cm Veronica Lizzette Other [employer] Other 09-09-2022 13:45-0400 Body mass index (BMI) [Ratio] 40.51 kg/m2 Veronica Lizzette Other [employer] Other 09-09-2022 13:45-0400 Body temperature 98 [degF] Veronica Lizzette Other [employer] Other 09-09-2022 13:45-0400 Body weight 113.85 kg Veronica Lizzette Other [employer] Other 09-09-2022 13:45-0400 Respiratory rate 16 /min Veronica Lizzette Other [employer] Other 09-09-2022 13:45-0400 SaO2% (BldA) [Mass fraction] 97 % Veronica Lizzette Other [employer] Other 07-07-2021 12:00-0500 Body height 167.64 cm Andie Leger Other [employer] Other 07-07-2021 12:00-0500 Body mass index (BMI) [Ratio] 39.54 kg/m2 Andie Leger Other [employer] Other 07-07-2021 12:00-0500 Body temperature 97.8 [degF] Andie Leger Other [employer] Other 07-07-2021 12:00-0500 Body weight 111.13 kg Andie Leger Other [employer] Other 07-07-2021 12:00-0500 SaO2% (BldA) [Mass fraction] 93 % Andie Leger Other [employer] Other Encounters Encounter Date Encounter Type Care Provider Facility Start: 12-01-2024 End: 12-01-2024 ambulatory Mabel Galvan MD Work Phone: [facility] Work Phone: Start: 12-01-2024 End: 12-01-2024 Patient encounter procedure Misty Phillips OXYGEN THERAPIST -[facility] Work Phone: Start: 10-17-2024 End: 10-17-2024 Patient encounter procedure Chiara Lance OXYGEN THERAPIST [facility] Work Phone: Start: 01-23-2024 End: 01-23-2024 ambulatory [facility] Start: 10-08-2023 End: 10-08-2023 ambulatory CARLINE KING Not Available Start: 07-11-2023 End: 07-11-2023 ambulatory [facility] Work Phone: Start: 07-11-2023 End: 07-11-2023 Patient encounter procedure [facility] Work Phone: Start: 02-03-2023 End: 02-03-2023 ambulatory Veronica Lizzette Other [employer] Other Start: 02-03-2023 Office outpatient visit 15 minutes Veronica Lizzette [facility] Start: 11-05-2022 End: 11-05-2022 ambulatory Nidhi Croft Other [employer] Other Start: 11-05-2022 Telephone encounter Nidhi Croft [facility] Start: 11-03-2022 End: 11-03-2022 ambulatory Veronica Lizzette Other [employer] Other Start: 11-03-2022 Office outpatient visit 15 minutes Veronica Lizzette [facility] Start: 09-09-2022 End: 09-09-2022 ambulatory Veronica Lizzette Other [employer] Other Start: 09-09-2022 Office outpatient visit 15 minutes Veronica Lizzette [facility] Start: 07-19-2022 End: 07-20-[address] GINNY TRAMMELL . Facility:[facility] Start: 07-16-2022 End: 07-17-[address] GINNY TRAMMELL . Facility:[facility] Start: 07-03-2022 End: 07-04-[address] GINNY TRAMMELL . Facility:[facility] Start: 07-07-2021 End: 07-07-2021 ambulatory Andie Leger Other [employer] Other Start: 07-07-2021 Office outpatient visit 15 minutes Andie Leger [facility] Start: 01-05-2019 End: 01-06-2019 Patient encounter procedure PRISCILLA AMES [facility] Start: 01-05-2019 End: 01-05-2019 Subsequent hospital visit by physician Mabel Galvan [facility] Laboratory Comment on above: Irregular uterine bl eeding Start: 10-06-2018 End: 10-09-2018 Patient encounter procedure WILL TINOCO [facility] Start: 09-30-2018 End: 2018 Patient encounter procedure WILL TINOCO [facility] Start: 08-19-2018 End: 08-20-2018 Patient encounter procedure ANEL ROBB [facility] Start: 07-17-2017 End: 07-18-2017 Ambulatory DEFAULT PHYSICIAN Facility:[facility] Procedures Date Procedure Procedure Detail Performing [...] - Td) DTaP/Tdap/Td vaccine (2 - Td) [place], [place] Start: 2021 Colon cancer screen colonoscopy Colon cancer screen colonoscopy [place], [place] Comment on above: Postponed from 10/01 (Not Indicated) Start: 09-30-2021 Cervical cancer screen Cervical canc er screen [place], [place] Start: 2019 Lipid screen Lipid screen [place], [place] Comment on above: Postponed from 10/01 (Not Indicated) Start: 2019 Shingles Vaccine (1 of 2) Shingles Vaccine (1 of 2) [place], [place] Comment on above: Postponed from 10/01 (Unavailable) Start: 01-26-2019 End: 01-26-2019 Office Visit 01/26/2019 Office Visit Obstetrics and Gynecology Priscilla Chacon, DO [address] [place] [address] [facility] [employer] Start: 12-27-2018 Influenza vaccination Flu vaccine (# 1) [place], [place] Start: 12-18-2018 Diabetes screen Diabetes screen [place], [place] Start: 12-17-2018 Breast cancer screen Breast cancer s berta [place], [place] Immunizations Immunization Date Immunization Notes Care Provider Julia mendoza 10-18-2016 tetanus toxoid, redu oscar diphtheria toxoid, and acellular pertussis vaccine, adsorbed Mabel Man [place], [place] Payers Date Payer Category Payer Unknown [employer] [address] xxxxxxxxxxxx 2016-Present [phone] [address] [place] [address] xxxxxxxxxxxx [id number] 1960 Unknown [id number] 1960 Unknown [id number] 1960 Unknown [id number] 1960 Unknown [id number] 1960 Unknown [id number] 1960 Unknown [id number] 1960 Unknown [id number] 9 1958 Unknown [id number] Self-pay Self Pay [id number] Unknown Social History Date Type Detail Facility Start: 01-05-2019 End: 10-17-2024 Tobacco smoking status NHIS Never smoker [facility] Start: 01-05-2019 [facility] [place] [place] Sex Assigned At Not on file [place], [place] Start: 1960 Sex Assigned At Female F [facility] Sex Female (finding) [facility] Clinical Notes 07-07-2021 to 10-17-2024 Note Date & Type Note Facility 10-17-2024 Evaluation note Diagnosis Onset Date Resolution Bilateral acute otitis media acute October 17, 2024 12:24pm [facility] Work Phone: 1(157) 976-749009-27-2024 [facility] Reason for cardiology [...] emergency room and she was monitored in [facility]. Her EKG and labs were [...] M.D. Assessment and P (more content not included)...[facility]10-09-2023 Evaluation note* Encounter Date Diagnosis Assessment Notes Treatment Notes Treatment Clinical Notes Jan, Acute sinusitis, recurrence not specified, [...] no improvement in 2 to 3 days [employer] Other 07-09-2023 Evaluation note* Encounter Date Diagnosis Assessment Notes Treatment Notes Treatment Clinical Notes Oct, Right otitis media, unspecified otitis [...] or fevers Oct, Bronchitis (ICD-10 - J40) [employer] Other 05-15-2023 Evaluation note* Encounter Date Diagnosis Assessment Notes Treatment Notes Treatment Clinical Notes August, Right otitis media with effusion [...] no improvement in 2 to 3 days. [employer] Other 03-12-2022 Evaluation note* Encounter Date Diagnosis Assessment Notes Treatment Notes Treatment Clinical Notes Jun, Cough (ICD-10 - R05.9) Jun, [...] weeks for the cough to go away [employer] Other 03-12-2022 Evaluation note* Encounter Date Diagnosis Assessment Notes Treatment Notes Treatment Clinical Notes Jun, Cough (ICD-10 - R05.9) Jun, [...] weeks for the cough to go away [facility] [employer] Other Evaluation [facility]No [facility] [employer] Other Evaluation note* Diagnosis Onset Date Resolution Status Bilateral otitis media nonea wiive [facility] Work Phone: History general Narrative - Reported* Type Description Date Medical History Fibroids Medical History degenerative disc disease Surgical History cholecystectomy 1994 Surgical History Btl 1993 Surgical History tonsilectomy 1968 Surgical History Temporal arterial biopsy 019 Hospitalization History Cholecystectomy 1994 Hospitalization History & Btl 1993 Hospitalization History [address] [facility] [employer] Other History general [facility] - [facility] [employer] Other Reason for referral (narrative)No reason for referral information [facility] Work Phone: Summary Purpose Family History Relationship Condition Age at Onset Recorded Date/T june father Malignant neoplasm of paranasal sinus Unk nown Hypertension Unknown brother Multiple sclerosis Unknown Unknown family member Unknown grandparent Unknown Aneurysm Unknown Not Specified Lymphoma Unknown Malignant neoplasm Unknown natural son Type 1 diabetes mellitus Unknown Relationship Condition Age at Onset Recorded Date/T june father Malignant neoplasm of paranasal sinus Unk nown Hypertension Unknown brother Multiple sclerosis Unknown Unknown family member Unknown grandparent Unknown Aneurysm Unknown mother Lymphoma Unknown Malignant neoplasm Unknown son Type 1 diabetes mellitus Unknown Advance Directives Documents on File Type Date Recorded Patient Canary Breeder Expl anation Advance Directives and Living Will Power of [employer] Fre[employer] Specialist Advance Directive Response Recorded Date/ Time Advance Directives No May 20, 2018 4:07pm Assessments Diagnosis Irregular uterine bleeding Irregular menstrual cycle Chief Complaint and Reason for Visit Chief Complaint POSS LEFT EAR INFECT ION Reason for Visit Bilateral otitis med ia Chief Complaint Admit Date Ear pain October 17, 2024 12:2 4pm Reason for Visit Admit Date Bilateral acute otitis media October 17, 2024 12:24pm Additional Source Comments INFORMATION SOURCE (unrecogn ized section and content) DATE CREATED AUTHOR 10/17/2017 [facility] DATE CREATED AUTHOR AUTHOR'S ORGANIZ ATION 08/22/2018 [facility] DATE CREATED AUTHOR AUTHOR'S ORGANIZ ATION 01/05/2019 [facility] DATE CREATED AUTHOR AUTHOR'S ORGANIZ ATION 06/23/2019 Armenta Hugh [facility] DATE CREATED AUTHOR AUTHOR'S ORGANIZ ATION 07/27/2022 [facility] DATE CREATED AUTHOR AUTHOR'S ORGANIZ ATION 10/09/2023 [facility] DATE CREATED AUTHOR AUTHOR'S ORGANIZ ATION 01/24/2024 [facility] REASON FOR VISIT (unrecogniz ed section [...] July 11, 2023 End: July 11, 2023 Veronica Crocker NP-C Attending Provider Active S tart: July 11, 2023 End: July 11, 2023 Team Status: Inactive Member Role Status Dates Mabel Galvan MD Primary Care Provider Active Start: October 17, 2024 End: October 17, 2024 PIOTR Dawkins RN BOND TRADER-C Attending Provider Active Start: October 17 End: October 17, 2024 Team Status: Inactive Member Role Status Dates Mabel Galvan MD Primary Care Provider Active Start: December 01, 2024 End: December 01, 2024 Misty Pérez APRN Attending Provider Active Start: December 01, 2024 End: December 01, 2024 Goals (unrecognized section and content) Goals may [...] BE BASED ON THE PRIMARY CLINICAL RECORDS. [facility] provides no warranty or guarantee of the accuracy or completeness of information in this document.
== END 2025-01-19 12:49 | disposition home or self-care (01) ==
LOC: MRI 12:48
PROVIDERS: PCP Family Medicine; Visit Provider Family Medicine
DX: M79.644 Pain in right finger(s) (principal); M19.041 Primary osteoarthritis, right hand; Z12.31 Encounter for screening mammogram for malignant neoplasm of breast; Z80.3 Family history of malignant neoplasm of breast; Z80.7 Family history of other malignant neoplasms of lymphoid, hematopoietic and related tissues; Z80.8 Family history of malignant neoplasm of other organs or systems
CPT/HCPCS: 73218; 77063; 77067

== ENCOUNTER 2025-03-15 08:07 | Emergency (ER) | payer BC, SELFPAY ==
[2025-03-15 08:13] VITALS: BP 158/99; PULSE 72; TEMP 36.6; O2SAT 96; BMI 40.4
--- NOTE | 2025-03-15 09:05 | XR_ITS ---
The [address] [address] Patient Name: ERNA MONTANEZ MRN: [id number] date: 1960 Sex: F Assigned Patient Location: ER Current Patient Location: ER Accession/Order Number: [id number] Exam Date: 03/15/2025 08:50 Report Date: 03/15/2025 09:35 At the request of: EARL LEONARD MD Procedure: XR elbow RT min 3V CLINICAL DATA: Patient fell and has pain at the right knee, right elbow and left hand. RIGHT KNEE - 3 views COMPARISON: None AP, lateral and internal oblique views were obtained. No acute fracture or dislocation is identified. There is minimal narrowing at the medial tibiofemoral joint compartment. There is minor spurring at the posterior patella. There is a trace amount of joint fluid. No soft tissue swelling is noted. XR/XR elbow RT min 3V IMPRESSION: NO ACUTE BONY INJURY. RIGHT ELBOW - 3 views COMPARISON: None AP, lateral and internal oblique views were obtained. No acute fracture or dislocation is identified. There is minimal degenerative change. No elbow effusion or soft tissue swelling is seen. IMPRESSION: NO ACUTE BONY INJURY. LEFT HAND - 3 views COMPARISON: None AP, lateral and oblique views were obtained. There is no evidence of fracture or dislocation. There are no significant soft tissue abnormalities. IMPRESSION: NO ACUTE BONY INJURY. Impression dictated by: Radha Mace M.D. 03/15/2025 9:35 AM Dictation Location: [place] [address] Electronically authenticated by: [id number] Y Date: 03/15/2025 09:35
--- NOTE | 2025-03-15 09:05 | XR_ITS ---
The [address] [address] Patient Name: ERNA MONTANEZ MRN: [id number] date: 1960 Sex: F Assigned Patient Location: ER Current Patient Location: ER Accession/Order Number: [id number] Exam Date: 03/15/2025 08:50 Report Date: 03/15/2025 09:35 At the request of: EARL LEONARD MD Procedure: XR elbow RT min 3V CLINICAL DATA: Patient fell and has pain at the right knee, right elbow and left hand. RIGHT KNEE - 3 views COMPARISON: None AP, lateral and internal oblique views were obtained. No acute fracture or dislocation is identified. There is minimal narrowing at the medial tibiofemoral joint compartment. There is minor spurring at the posterior patella. There is a trace amount of joint fluid. No soft tissue swelling is noted. XR/XR knee RT 3V IMPRESSION: NO ACUTE BONY INJURY. RIGHT ELBOW - 3 views COMPARISON: None AP, lateral and internal oblique views were obtained. No acute fracture or dislocation is identified. There is minimal degenerative change. No elbow effusion or soft tissue swelling is seen. IMPRESSION: NO ACUTE BONY INJURY. LEFT HAND - 3 views COMPARISON: None AP, lateral and oblique views were obtained. There is no evidence of fracture or dislocation. There are no significant soft tissue abnormalities. IMPRESSION: NO ACUTE BONY INJURY. Impression dictated by: Radha Mace M.D. 03/15/2025 9:35 AM Dictation Location: [place] [address] Electronically authenticated by: [id number] Y Date: 03/15/2025 09:35
--- NOTE | 2025-03-15 09:05 | XR_ITS ---
The [address] [address] Patient Name: ERNA MONTANEZ MRN: [id number] date: 1960 Sex: F Assigned Patient Location: ER Current Patient Location: ER Accession/Order Number: [id number] Exam Date: 03/15/2025 08:50 Report Date: 03/15/2025 09:35 At the request of: EARL LEONARD MD Procedure: XR elbow RT min 3V CLINICAL DATA: Patient fell and has pain at the right knee, right elbow and left hand. RIGHT KNEE - 3 views COMPARISON: None AP, lateral and internal oblique views were obtained. No acute fracture or dislocation is identified. There is minimal narrowing at the medial tibiofemoral joint compartment. There is minor spurring at the posterior patella. There is a trace amount of joint fluid. No soft tissue swelling is noted. XR/XR hand LT min 3V IMPRESSION: NO ACUTE BONY INJURY. RIGHT ELBOW - 3 views COMPARISON: None AP, lateral and internal oblique views were obtained. No acute fracture or dislocation is identified. There is minimal degenerative change. No elbow effusion or soft tissue swelling is seen. IMPRESSION: NO ACUTE BONY INJURY. LEFT HAND - 3 views COMPARISON: None AP, lateral and oblique views were obtained. There is no evidence of fracture or dislocation. There are no significant soft tissue abnormalities. IMPRESSION: NO ACUTE BONY INJURY. Impression dictated by: Radha Mace M.D. 03/15/2025 9:35 AM Dictation Location: [place] [address] Electronically authenticated by: [id number] Y Date: 03/15/2025 09:35
--- NOTE | 2025-03-15 09:07 | ED.GENADUL1 ---
HPI HPI - General Adult General Chief complaint: Extremity Injury, Upper Stated complaint: upper extremity injury - fall Time Seen by Provider: 03/15/25 08:13 Source: patient Mode of arrival: walk-in History of Present Illness HPI narrative: 64-year-old female presented to the emergency department for injury sustained in a fall which occurred just before coming into the emergency department. She tripped and fell and hit her right elbow, left hand, and right knee. She had tetanus shot earlier this year and she did not hit her head. Related Data Home Medications ?Medication ?Instructions ?Recorded ?Confirmed cyproheptadine 4 mg tablet 4 mg PO DAILY 11/28/23 03/15/25 metoprolol succinate 25 mg 25 mg PO DAILY 11/28/23 03/15/25 tablet,extended release 24 hr tizanidine 4 mg tablet 4 mg PO DAILY 11/28/23 03/15/25 Allergies Allergy/AdvReac Type Severity Reaction Status Date / Time Penicillins Allergy Severe Hives Verified 03/15/25 08:13 nitroglycerin (From AdvReac Intermediate bradycardia, Verified 03/15/25 08:13 Nitrostat) hypotension Opioid HPI Opioid Management Most Recent Opioid Data: Last Pain Scale 7 Today, 08:25 Review of Systems ROS Narrative A ten point review of systems is negative except as noted above. PFSH PFSH Social History Little interest or pleasure in doing things: not at all Feeling down, depressed, or hopeless: not at all Exam Narrative Exam Narrative: Nurses note and vital signs reviewed General:The patient appears well and in no apparent distress.Patient is resting comfortably on cart. Skin:Warm, dry, no pallor noted.There is no rash noted. Head:Normocephalic, atraumatic Eye: Normal conjunctiva, no drainage Ears, Nose, Mouth, and Throat: oral mucosa is moist. Nares patent. Cardiovascular:Regular Rate and Rhythm Respiratory:Patient is in no distress, no accessory muscle use Back:non-tender GI: Soft and nontender Musculoskeletal: She has an abrasion of the right elbow but the elbow has good range of motion. She has abrasion at the inferior aspect of the anterior right knee and the knee has good range of motion. She has some tenderness and swelling and bruising on the left hand dorsum on the radial portion. Fingers have good range of motion. Her wrist is nontender. Neurological: Awake and alert Psychiatric:Cooperative Constitutional Vital Signs, click to edit/add: Last Vital Signs Temp 97.9 F 03/15/25 08:13 Pulse 72 03/15/25 08:13 Resp 16 03/15/25 08:13 BP 158/99 H 03/15/25 08:13 Pulse Ox 96 03/15/25 08:13 O2 Del Method Room Air 03/15/25 08:13 Course Vital Signs Vital signs: Vital Signs Temperature 97.9 F 03/15/25 08:13 Pulse Rate 72 03/15/25 08:13 Respiratory Rate 16 03/15/25 08:13 Blood Pressure 158/99 H 03/15/25 08:13 Pulse Oximetry 96 03/15/25 08:13 Oxygen Delivery Method Room Air 03/15/25 08:13 Temperature 97.9 F 03/15/25 08:13 Pulse Rate 72 03/15/25 08:13 Respiratory Rate 16 03/15/25 08:13 Blood Pressure 158/99 H 03/15/25 08:13 Pulse Oximetry 96 03/15/25 08:13 Oxygen Delivery Method Room Air 03/15/25 08:13 Medical Decision Making MDM Narrative Medical decision making narrative: X-rays of right elbow, right knee, and left hand are all negative per radiologist and she is able to be discharged home. Tetanus status is already up-to-date. Treatment diagnosis and follow-up were discussed with the patient. Differential Diagnosis Differential Diagnosis: Abrasions, fractures, contusions Imaging Data Right elbow, right knee, left hand x-rays: Radiologist's impression: ITS Impressions Elbow X-Ray 03/15/25 09:05 IMPRESSION: NO ACUTE BONY INJURY. RIGHT ELBOW - 3 views COMPARISON: None AP, lateral and internal oblique views were obtained. No acute fracture or dislocation is identified. There is minimal degenerative change. No elbow effusion or soft tissue swelling is seen. IMPRESSION: NO ACUTE BONY INJURY. LEFT HAND - 3 views COMPARISON: None AP, lateral and oblique views were obtained. There is no evidence of fracture or dislocation. There are no significant soft tissue abnormalities. IMPRESSION: NO ACUTE BONY INJURY. Impression dictated by: Radha Mace M.D. 03/15/2025 9:35 AM Dictation Location: [place] [address] Electronically authenticated by: [id number] Y Date: 03/15/2025 09:35 Hand X-Ray 03/15/25 09:05 IMPRESSION: NO ACUTE BONY INJURY. RIGHT ELBOW - 3 views COMPARISON: None AP, lateral and internal oblique views were obtained. No acute fracture or dislocation is identified. There is minimal degenerative change. No elbow effusion or soft tissue swelling is seen. IMPRESSION: NO ACUTE BONY INJURY. LEFT HAND - 3 views COMPARISON: None AP, lateral and oblique views were obtained. There is no evidence of fracture or dislocation. There are no significant soft tissue abnormalities. IMPRESSION: NO ACUTE BONY INJURY. Impression dictated by: Radha Mace M.D. 03/15/2025 9:35 AM Dictation Location: [employer] Electronically authenticated by: [id number] Y Date: 03/15/2025 09:35 Knee X-Ray 03/15/25 09:05 IMPRESSION: NO ACUTE BONY INJURY. RIGHT ELBOW - 3 views COMPARISON: None AP, lateral and internal oblique views were obtained. No acute fracture or dislocation is identified. There is minimal degenerative change. No elbow effusion or soft tissue swelling is seen. IMPRESSION: NO ACUTE BONY INJURY. LEFT HAND - 3 views COMPARISON: None AP, lateral and oblique views were obtained. There is no evidence of fracture or dislocation. There are no significant soft tissue abnormalities. IMPRESSION: NO ACUTE BONY INJURY. Impression dictated by: Radha Mace M.D. 03/15/2025 9:35 AM Dictation Location: [employer] Electronically authenticated by: [id number] Y Date: 03/15/2025 09:35 Discharge Plan Discharge Chief Complaint: Extremity Injury, Upper Clinical Impression: Multiple abrasions Patient Disposition: Home, Self-Care Time of Disposition Decision: 09:45 Condition: Good Mode of Transportation: Private Vehicle Prescriptions / Home Meds: No Action metoprolol succinate 25 mg tablet extended release 24 hr 25 mg PO DAILY tizanidine 4 mg tablet 4 mg PO DAILY cyproheptadine 4 mg tablet 4 mg PO DAILY Print Language: Maltese Instructions: Abrasion (ED) Referrals: Akil Trammell MD [Primary Care Provider, Family Practice] - 1 week
== END 2025-03-15 10:05 | disposition home or self-care (01) ==
PROVIDERS: Emergency Provider Emergency Medicine; PCP Family Medicine
DX: S50.311A Abrasion of right elbow, initial encounter (principal); S80.211A Abrasion, right knee, initial encounter; W01.0XXA Fall on same level from slipping, tripping and stumbling without subsequent striking against object, initial encounter
CPT/HCPCS: 73080; 73130; 73562; 99283

== ENCOUNTER 2025-03-21 17:21 | Outpatient (OUT) | payer BC, SELFPAY ==
--- OUTSIDE RECORDS SUMMARY | 2025-03-21 17:26 | XMS_ITS | Clinical Summary ---
Author Organization [employer] [facility] [employer] Address [id number] [address] [place] [address] Care Team Providers Care Cnc Cutting Operator Name Role Phone Mabel Conway MD Primary Care Provider [phone] Allergies Active AllergyReactionsCriticalityNoted HpqvUepcodbbUfxqsfkolbrDcmbUzy29/25/2019 Social History Tobacco UseTypesPacks/DayYears UsedDateSmoking Tobacco: Never AssessedChildcare AnswerDate VbnbhcptOwgklpkuvKnevdqr26/03/2019EmploymentAnswerDate Recorded IetpxkldvsVvizmhk02/03/2019Purpose - LifeAnswerDate RecordedPurpose and direction in rvqfMhodubj95/11/2021CommentsUnknownSex and Gender InformationValueDate RecordedSex Assigned at BirthNot on fileLegal SexFemale 12/01/2014 12:07 PM EDTGender IdentityNot on fileSexual OrientationNot on file Plan of Treatment Health MaintenanceDue DateLast DoneCommentsDepression Dzgshcshr68/06/1974Tobacco Kocfjcmwy90/06/1974Adult BMI Rwueicrvr14/06/1980Zoster (Shingles) Vaccine (1 of 2)10/02/2011Pap SmearInfluenza Atxvtzh4412/27/2024DTaP,Tdap and Td Vaccines (2 - Td or Tdap)RSV ( or age 60+ yrs) (1 - 1-dose 75+ series)2036 [employer] Not on file Insurance Care Teams Team MemberRelationshipSpecialtyStart DateEnd Date Mabel Conway MD [address] [place] [address] PCP - GeneralFamily Medicine10/02/18
--- OUTSIDE RECORDS SUMMARY | 2025-03-21 17:26 | XMS_ITS | Clinical Summary ---
Author Organization [facility] Address [address] [place] [address] Care Team Providers Care Professor Of Journalism Name Role Phone Akil Trammell MD Primary Care Provider [phone] Allergies Active AllergyReactionsCriticalityNoted HxjoOocotvzpPxatxqdonuBetyIra53/15/2024 PenicillinsHives,Rash,PpozdsyBkm02/11/2017 Medications MedicationSigDispense QuantityRefillsLast FilledStart DateEnd DateStatus tiZANidine (Zanaflex) 4 MG tablet every 6 to 8 hours07/11/2023ctive pantoprazole (ProtoNix) 40 MG EC tablet Take 40 mg by mouth 1 (one) time each day at the same timeActive metoprolol succinate XL (Toprol-XL) 25 MG 24 hr tablet 1 (one) time each day at the same timeActive cyproheptadine (Periactin) 4 MG tablet Daily at rynskcd6507/11/2023ctive Active Problems ProblemNoted DateDiagnosed LaeyBjshdbvl28/12/2024Family history of aneurysm 10/08/2023OSA (obstructive sleep apnea)10/08/20231217Ggwmczz77/12/2024 Family History Medical HistoryRelationNameCommentsAneurysmOtherAtrial fibrillationOtherCOPD OtherCancerOtherHypertensionOtherMultiple sclerosisOtherRelationNameStatus CommentsOther Social History Tobacco UseTypesPacks/DayYears UsedDateSmoking Tobacco: Never Tobacco Cessation:Counseling Given: Not Answered Alcohol UseStandard Drinks/WeekCommentsNever0 (1 standard drink = 0.6 oz pure alcohol)does not drink caffeineCommentsUnknownSex and Gender Information ValueDate RecordedSex Assigned at BirthNot on fileLegal JmrNtehnf34/15/2023 6:43 PM EDTGender IdentityNot on fileSexual OrientationNot on file Last Filed Vital Signs Vital SignReadingTime TakenCommentsBlood Efbypfio300/8406 12:30 PM EDT Yleyv767210/08/2023 12:30 PM EDTTemperature--Respiratory Clrh115610/08/2023 12:30 PM EDTOxygen Uaiatsymas97%10/08/2023 12:30 PM EDTInhaled Oxygen Concentration-- Okcruf199 kg (258 lb)10/08/2023 12:30 PM WODTlnaql948.6 cm (5' 6 )10/08/2023 12:30 PM EDTBody Mass Index41.64010/08/2023 12:30 PM EDT Plan of Treatment Not on file Insurance [place] [address] MemberSubscriberPlan / Payer (Effective 2022-Present)Name:Monet Hannah Relation to Subscriber:SpouseName:JULIETTE HANNAH Date of :1961 Address: [facility] [place] [address] Payer ID:Not on file Type:Not on file Address: [place] [id number] Care Teams Team MemberRelationshipSpecialtyStart DateEnd Akil Trammell MD PCP - GeneralFamily Medicine08/19/23
--- OUTSIDE RECORDS SUMMARY | 2025-03-21 17:26 | XMS_ITS | Clinical Summary ---
Author Organization [facility] Address [address] [place] [address] Care Team Providers Care Transport Tech Name Role Phone Mabel Conway MD Primary Care Provider [phone] Nathaniel Lau Unavailable [phone] Allergies Active AllergyReactionsCriticalityNoted UhdwKitxdzzwDqupqamnrcOpchd11/29/2018 Sulfamethoxazole-QysicqlzxeygQyuvwgaeIvh01/24/2017 Medications MedicationSigDispense QuantityRefillsLast FilledStart DateEnd DateStatus acetaminophen (TYLENOL EXTRA STRENGTH) 500 mg tablet Take 500 mg by mouth as needed. Takes 2 tabsActive topiramate (TOPAMAX) 25 mg tablet Take 1 at bed for 1 wk then 2 at bedfor 1 wk then 3 at bed for 1 wk then 4 at bed 120 tablet Active Active Problems ProblemNoted DateDiagnosed DateObesity, Class II, BMI 35-39.9 E66.9007/24/2017 Family History Medical HistoryRelationCommentsCancerFatherHeartFatherAtrial FibCancerMother RelationStatusCommentsFatherMother Social History Tobacco UseTypesPacks/DayYears UsedDateSmoking Tobacco: NeverSmokeless Tobacco: NeverAlcohol UseStandard Drinks/WeekCommentsNo0 (1 standard drink = 0.6 oz pure alcohol)PHQ-2AnswerDate RecordedPHQ-2 joacl639Area Deprivation Index AnswerDate RecordedNational Score (1-100), lower number is lower riskNot on file 04/04/2020State Score (1-10), lower number is lower riskNot on file04/04/2020 Data from: https://www.neighborhoodatlas.medicine.[facility].edu/. Last address used for calculationNot on file04/04/2020CommentsNoSex and Gender Information ValueDate RecordedSex Assigned at BirthNot on fileLegal IrjWyfjvn40/21/2018 11:07 AM EDTGender IdentityNot on fileSexual OrientationNot on file Last Filed Vital Signs Vital SignReadingTime TakenCommentsBlood Drdehxmc407/9304 10:54 AM EDT Zvelu803808/19/2018 10:54 AM EDTTemperature--Respiratory Jeun1338 9:17 AM EDTOxygen Ceubitncha20%07/24/2017 9:17 AM EDTInhaled Oxygen Concentration-- Xotlui759.4 kg (239 lb)08/19/2018 10:54 AM ZUOGkiafj959.6 cm (5' 6 )08/19/2018 10:54 AM EDTBody Mass Index38.5804 10:54 AM EDT Plan of Treatment Health MaintenanceDue DateLast DoneCommentsAnxiety Lczvmmugf65/06/1980Depression Rvoerakew99/06/1980HIV Tkjiabogm65/06/1980Hepatitis C Qrwhmxqka47/06/1980 Cervical Cancer Mhxewcbge79/06/1983Mammogram Jdjamgwdq59/06/2002CT Colonography 2006Cologuard (FIT-DNA)10/01/20065533Wtzplxcwtid46/06/2007Colorectal Cancer Wqnuafxcy99/06/2007Diabetes Vefdkjhnj31/06/2007Fecal Occult Blood2006Lipid Leqjkjsxy45/06/0701Oyiionhmtjkyx08/06/2007Pneumococcal Vaccine: 50+ (1 of 1 - PCV)10/02/2011Shingrix Vaccine (1 of 2)10/02/2011Covid-19 Vaccine (1 - 2024- season)2024Influenza Vaccine (#1)DTaP,Tdap,Td Vaccine (2 - Td or Tdap)RSV Vaccine (1 - 1-dose 75+ series) 2036 Insurance Care Teams Team MemberRelationshipSpecialtyStart DateEnd Date Mabel Conway MD [address] [place] [id number] PCP - GeneralFamily Medicine04/28/15 Nathaniel Lau [address] [place] [address] Primary Staff PhysicianCardiology07/14/18
--- OUTSIDE RECORDS SUMMARY | 2025-03-21 17:26 | XMS_ITS | CCD ---
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 our user guide, here: [email or web address] ? Important: Don?t forget your password you [...] connected to the provider. ? Please call [phone] prior to your visit if you have [...] Encounter Status:Closed by ANEL ROBB MD on 08/19/18[facility]ICALon [id number] PHYSICALHNO ID: [id number] Author: Anel Robb Service: ? Author Type: Physician Type: HANDP Filed: 08/19/2018 12:22 PM Note Text: Mabel Galvan MD ([facility]) [address] [facility] [address] PCP: Mabel Galvan MD Accompanied by: Self [...] neck.- reviewd and uploaded to [facility] Records reviewed: yes Family History: FAMILY HISTORY [...] 08/19/2018 PHQ-2 Score 2 PHQ-9 Score 8 ATRA-2 Total Score 1 TARA - 2/7 SCORES [...] turgor normal. No rashes or lesions HEENT: Normocephalic/atraumatic. Vascular: No cyanosis, clubbing or edema. Musculoskeletal: Cervical ROM: Decreased in all directions. Neurological: Mental Status: Alert and oriented to person, place and time. Affect is blunted. Speech is normal in rate, volume and articulation. 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 IHS diagnosis based on current history and exam: (G44.51) Hemicrania continua (primary encounter diagnosis) Plan: Discussed all options for treatment. Please obtain generic omeprazole (20 mg) [[employer], [employer], [employer], etc] and start one daily. [...] 50% of the time spent in patient education/counselling/coordinating care with the patient and /or family. The above plan discussed with the patient. All questions answered. The patient verbalized understanding. Medical decision making was high complexity due to patient's multiple symptoms including Headache and pain, and counseling about diet, medications, and shelter implications. The patient has my contact information and my chart sign up information. Anel Robb MDKettering Health – Soin Medical CenterMR-MR angio head wo con IMPORTon 93-39-1698CQ-MR angio head wo con IMPORTImages were obtained outside of [facility] [id number]-MRI BRAIN WO CON IMPORT on 25-65-4425RS-MRI BRAIN WO CON IMPORTImages were obtained outside of [facility] [id number]-MRI C-SPINE WO CON IMPORTon 07-57-1219GR-MRI C-SPINE WO CON IMPORTImages were obtained outside of [facility] [id number] Vital Signs Date TimeVital SignValuePerforming UbsbbwxprFkygkfej40-76-6924 11:20-0500Body uqnkkg131.64 cmGinny Trammell MD Work Phone: [facility]11-05-2025 11:20-0500 Body mass index (BMI) [Ratio]36.8 kg/w6WkplkioGinny Trammell MD Work Phone: [facility]11-05-2025 11:20-0500 Body ujriakflgmb11.2 [degF]Ginny Trammell MD Work Phone: [phone]11-05-2025 11:20-0500 Body sejdtq672.41 kgDodirk Trammell MD Work Phone: 1(555)[address] [place], [place] 4124011-05-2025 11:20-0500 Diastolic blood tttbkrco53 mm[Hg]Ginny Trammell MD Work Phone: 1(743)[address] [place], [place] 4124011-05-2025 11:20-0500 Heart rate63 /Esau Trammell MD Work Phone: 1(704)[address] [place], [place] 4124011-05-2025 11:20-0500 Respiratory rate18 /Esau Trammell MD Work Phone: 1(867)[address] [place], [place] 4124011-05-2025 11:20-0500 SaO2% (BldA) [Mass fraction]97 %Ginny Trammell MD Work Phone: 1(474)[address] [place], [place] 4124011-05-2025 11:20-0500 Systolic blood myxnsgwf685 mm[Hg]Ginny Trammell MD Work Phone: 1(671)[address] [place], [place] 4124008-06-2025 09:10-0400 Body seynzb681.64 cmMabel Galvan MD Work Phone: 1(379)429-[address] [place], [place] 3182108-06-2025 09:10-0400 Body mass index (BMI) [Ratio]40.8 kg/a9EbbwglMabel Galvan MD Work Phone: [phone])773-[address] [place], [place] 3182108-06-2025 09:10-0400 Body .98 kgMabel Galvan MD Work Phone: 1(758)522-[address] [place], [place] 3182108-06-2025 09:10-0400 Diastolic blood mm[Hg]Mabel Galvan MD Work Phone: 1(406)750-[address] [place], [place] 3182108-06-2025 09:10-0400 Heart rate72 /Mary Galvan MD Work Phone: 1(562)542-[address] [place], [place] 3182108-06-2025 09:10-0400 SaO2% (BldA) [Mass fraction]97 %Mabel Galvan MD Work Phone: 1(245)[address] [place], [place] 4237608-06-2025 09:10-0400 Systolic blood vtqyfpyo616 mm[Hg]Mabel Galvan MD Work Phone: 1(691)[address] [place], [place] 4237606-22-2025 12:34-0400 Body sgdfbo412.64 cmMabel Galavn MD Work Phone: [phone])[address] [place], [place] 4237606-22-2025 12:34-0400 Body mass index (BMI) [Ratio]41.1 kg/y9TlwstnMabel Galvan MD Work Phone: 1(920)[address] [place], [place] 4237606-22-2025 12:34-0400 Body gxvzupscrqz95.3 [degF]Mabel Galvan MD Work Phone: 1(647)[address] [place], [place] 4237606-22-2025 12:34-0400 Body mmmigq467.66 kgMabel Galvan MD Work Phone: 1(419)[address] [place], [place] 4237606-22-2025 12:34-0400 Diastolic blood gsshbqaj25 mm[Hg]Mabel Galvan MD Work Phone: 1(760)[address] [place], [place] 4237606-22-2025 12:34-0400 Heart rate72 /Mary Galvan MD Work Phone: 1(358)[address] [place], [place] 4237606-22-2025 12:34-0400 Respiratory rate18 /Mary Galvan MD Work Phone: 1(644)[address] [place], [place] 4237606-22-2025 12:34-0400 SaO2% (BldA) [Mass fraction]98 %Mabel Galvan MD Work Phone: 1(554)[address] [place], [place] 4237606-22-2025 12:34-0400 Systolic blood nrzabufm170 mm[Hg]Mabel Galvan MD Work Phone: 1(781)[address] [place], [place] 4237603-15-2024 16:24-0400 Body gobdcb3264.68 cm[facility]03-15-2024 16:24-0400Body mass index (BMI) [Ratio]0.3 kg/w7ApevkpsydUniversity Hospitals [facility] Center03-15-2024 16:24-0400Body zxmeazngqye06.5 [degF][facility]03-15-2024 16:24-0400Body .3 kgUniversity [facility]als [facility]03-15-2024 16:24-0400Diastolic blood cjzqchok48 mm[Hg][facility] 07-11-2023 16:24-0400Heart rate83 /minUniversity Hospitals Geneva Medical Center 07-11-2023 16:24-0400Respiratory rate18 /[facility] 07-11-2023 16:24-5236EwH2% (BldA) [Mass fraction]95 %[facility]03-15-2024 16:24-0400Systolic blood bxekwlwj548 mm[Hg][facility]10-09-2023 12:20-0400Body zracuv436.64 cmPsiomara Crocker Other [employer] Other 10-09-2023 12:20-0400Body mass index (BMI) [Ratio] 40.31 kg/m9JgbxujVeronica Crocker Other [employer] Other 10-09-2023 12:20-0400Body cvttctmnums70.4 [degF]Veronica Kylemond Other [facility] [employer] Other 10-09-2023 12:20-0400Body lvjcek437.31 kgVeronica Crocker Other [employer] Other 10-09-2023 12:20-0400Diastolic blood mehushcg48 mm[Hg] Veronica Kylemond Other [employer] Other 10-09-2023 12:20-0400Respiratory rate18 /Jerry Crocker Other [employer] Other 10-09-2023 12:20-5775TuJ9% (BldA) [Mass fraction]96 % Veronica Kylemond Other [employer] Other 10-09-2023 12:20-0400Systolic blood lnneffot615 mm[Hg] Veronica Kylemond Other [employer] Other 07-09-2023 12:35-0400Body .64 cmPamela Lizzette Other [employer] Other 07-09-2023 12:35-0400Body mass index (BMI) [Ratio] 40.51 kg/j4Yugtin Lizzette Other [employer] Other 07-09-2023 12:35-0400Body weofuezoils61.9 [degF]Veronica Crocker Other [employer] Other 07-09-2023 12:35-0400Body malyxd551.85 kgPamelbk Crocker Other [employer] Other 07-09-2023 12:35-0400Respiratory rate18 /minPajose alfredo Crocker Other [employer] Other 07-09-2023 12:35-4179HsR2% (BldA) [Mass fraction]97 % Veronica Kylemond Other [employer] Other 05-15-2023 13:45-0400Body pxdgay532.64 cmPamela Lizzette Other [employer] Other 05-15-2023 13:45-0400Body mass index (BMI) [Ratio] 40.51 kg/g3GyanqiVeronica Crocker Other [employer] Other 05-15-2023 13:45-0400Body suahjmtzzfl46 [degF]Veronica Crocker Other [employer] Other 05-15-2023 13:45-0400Body .85 kgPajose alfredo Crocker Other [employer] Other 05-15-2023 13:45-0400Respiratory rate16 /minVeronica Crocker Other [employer] Other 05-15-2023 13:45-4894YfW3% (BldA) [Mass fraction]97 % Veronica Crocker Other [employer] Other 03-12-2022 12:00-0500Body wylcpe538.64 cmStepmarcella Leger Other [employer] Other 03-12-2022 12:00-0500Body mass index (BMI) [Ratio] 39.54 kg/m0CxzartytaAndie Leger Other [employer] Other 03-12-2022 12:00-0500Body .8 [degF] Andie Leger Other [employer] Other 03-12-2022 12:00-0500Body acnzwf485.13 kgStnirmala Leger Other [employer] Other 03-12-2022 12:00-8779JbN7% (BldA) [Mass fraction]93 % Andie Africa Other [employer] Other Encounters Encounter DateEncounter TypeCare ProviderFacilityStart: 03-02-2025 End: 80-18-9030lmueozzxwbLludkzy M Hoy MD Work Phone: [facility] ClydeStart: 03-02-2025 End: 49-45-0190Glfxura encounter procedurePatricmariana Lance [facility] Work Phone: Start: 12-01-2024 End: 49-00-0277ekgpxakadtVfzzzy E Braun MD Work Phone: [facility] Work Phone: Start: 12-01-2024 End: 55-47-5104Kbcgtuq encounter Lachelle Phillips [facility] Neurology Ankit Work Phone: Start: 10-17-2024 End: 65-26-0738Sftnkzn encounter procedurePatricmariana Lance [facility] Work Phone: Start: 01-23-2024 End: 39-69-7050zssidpgezxYQUYWWilson Memorial Hospitaltart: 10-08-2023 End: 80-71-1963mbemevnpbjZKARDT Camila AvailableStart: 07-11-2023 End: 24-89-5040xaheknggwqNgddxqgwuK[facility]tering [facility] Work Phone: Start: 07-11-2023 End: 93-51-6003Exfesgk encounter procedureAt[facility] Work Phone: Start: 02-03-2023 End: 64-79-4585ltwsordfflQjqdnw Dymond Other [facility] [employer] Other Start: 29-93-1583Rygbhk outpatient visit 15 minutes Veronica DymondFP[facility] ClydeStart: 11-05-2022 End: 16-69-2848eerrycnrwsFarktu Bailey Other [employer] Other Start: 85-47-8498Vslcoxlkr encounterLawoodrow CroftFPG [facility] ClydeStart: 11-03-2022 End: 86-29-4051zmnajbumbkUnukda Lizzette Other [employer] Other Start: 68-41-1875Jyrzox outpatient visit 15 minutes Veronica DymondFP[facility] ClydeStart: 09-09-2022 End: 46-06-0393soqpkqiiwhMhuagl Lizzette Other [employer] Other Start: 98-69-0708Wvtqew outpatient visit 15 minutes Veronica DymondFP[facility] ClydeStart: 07-19-2022 End: 22-52-4601tgsgvqcmrtFF GINNY HOY .Facility:G0Srhka: 07-16-2022 End: 22-27-8535bksckbujziOZ GINNY HOY .Facility:D3Jstzd: 07-03-2022 End: 20-35-3495opwhdbfgzjNR GINNY HOY .Facility:Q8Xnwkn: 07-07-2021 End: 09-03-5545xhvbiefeiyGtyxgvuko Breault Other [facility] [employer] Other Start: 93-21-8800Nmtctd outpatient visit 15 minutes Andie LegerFPG [facility] Care ClydeStart: 01-05-2019 End: 28-10-2723Qdrnndu encounter procedurePRISCILLA Iniguez [facility] Hospitaltart: 01-05-2019 End: 36-27-3844Jhyhouuwud hospital visit by Daphne GalvanMTHZ Laboratory Comment on above:Irregular uterine bleedingStart: 10-06-2018 End: 81-53-5334Gqwqplm encounter procedureSUSAN ЕЛЕНА Hess HospitalStart: 09-30-2018 End: 18-78-0250Eanzcjs encounter procedureSUSAN ЕЛЕНА Hess HospitalStart: 08-19-2018 End: 83-78-5429Nanobfr encounter procedureANEL TOMLINSONParkview Health Montpelier HospitalStart: 07-17-2017 End: 62-92-5017UrnwcdmrsnYAKZZBU PHYSICIANFacility:[facility] Procedures DateProcedureProcedure DetailPerforming ClinicianStart: 06-72-1392Bxyeiwfbejcj follicle stimulating hormonePRISCILLA FRANKELtart: 94-16-0710Fsnvgwzxruyq follicle stimulating hormoneCarsean Ames Work Phone: Start: 69-03-6704Qh pelvic nonobstetric real-time image completeCARSEAN FRANKELtart: 03-89-3373Soungi pap by bree AMES Plan of Treatment DateCare ActivityDetailAuthorStart: 03-91-7087PAtL/Tdap/Td vaccine (2 - Td) DTaP/Tdap/Td vaccine (2 - Td)[facility], [place]Start: 10-68-6849[place] cancer screen colonoscopyColon cancer screen colonoscopyUniversity Hospitals [facility] Center, WYComment on above:Postponed from 10/02/2011 (Not Indicated)Start: 85-01-7223Efnebxse cancer screenCervical cancer screenUniversity Hospitals [facility], KYStart: 03-62-6601Qzoxq screen Lipid screenUniversity Hospitals Geneva [facility] Center, WYComment on above:Postponed from 2001 (Not Indicated)Start: 63-71-1929Fgvstrzm Vaccine (1 of 2)Shingles Vaccine (1 of 2) [facility], WYComment on above:Postponed from 10/02/2011 (Unavailable) Start: 01-26-2019 End: 81-18-2902Vswilz Visit01/26/2019 Office Visit Obstetrics and Gynecology Priscilla Chacon, DO [address] [place] [id number] [facility] OB/GYNStart: 34-27-3237Fxwcmntwb vaccinationFlu vaccine (#1)[facility]: 80-38-4316Bvoeyjcp screen Diabetes screenEast [facility]: 70-15-6870Aseioh cancer screenBreast cancer screenBet[place]da, [place] Immunizations Immunization DateImmunizationNotesCare YkhjmwcdFvyauheh92-37-0966qyyzccb toxoid, reduced diphtheria toxoid, and acellular pertussis vaccine, adsorbedMarcia Galvan [place], [place] Payers DatePayer CategoryPayerPolicy [id number] [facility] [address] xxxxxxxxxxxx 2016-Present [phone] [address] [place] [address]jyqezkzuzvcw [id number] [id number] [id number] 2.16840.1.685366.3.57[id number] 2.16.840.1.901380.3.57[id number] 2.16840.1.489016.3.57[id number] 2.16840.1.397867.3.57[id number] 2.16840.1.777096.3.57[id number] 2.16840.1.978378.3.579.2.16165[id number]-zygSbwh Pay [id number] Social History DateTypeDetailFacilityStart: 01-05-2019 End: 39-24-5618Vxlexer smoking status NHISNever smokerLakeHealth Beachwood Medical Centertart: 29-87-7101Rlucnli intakeNoUniversity Hospitals [facility], KYSex Assigned At Not on fileUniversity Hospitals Geneva [facility] Center, KYStart: 86-76-0978Oyi Assigned At BirthFefour winds psychiatric hospitale [facility] Beach[facility] Medical CenterexFemale (finding)[facility] Clinical Notes 07-07-2021 to 10-17-2024 Note Date & FbvkGqzfWsvhxjqi61-08-2571 Evaluation note* Diagnosis Onset Date Resolution Status Admit Date Bilateral acute otitis media acuteJune 2024 12:24pm [facility] Work Phone: 1(692) 101-601509-27-2024 [facility] Reason for [...] emergency room and she was monitored in [facility]. Her EKG and labs were normal. She [...] M.D. Assessment and P (more content not included)...[facility]10-09-2023 Evaluation note* Encounter Date Diagnosis Assessment Notes Treatment Notes Treatment Clinical Notes Jan, Acute sinusitis, rec urrence not specified, unspecified location (ICD-10 - J01.90) Drink plenty fluids, get plenty of rest. Continue home medications as prescribed. Take the prednisone as prescribed until gone. Use the fluticasone nasal spray as prescribed until your symptoms improved. Take Tylenol or Motrin as needed for aches pains or fevers. Follow-up with your family physician if no improvement in 2 to 3 days [employer] Other 07-09-2023 Evaluation note* Encounter Date Diagnosis [...] or Motrin for aches pains or fevers Oct,ronchitis (ICD-10 - J40) [employer] Other 05-15-2023 Evaluation note* Encounter Date Diagnosis [...] no improvement in 2 to 3 days. [employer] Other 03-12-2022 Evaluation note* Encounter Date Diagnosis Assessment Notes Treatment Notes Treatment Clinical Notes Jun, Cough (ICD-10 - R05.9) Jun,ight acute otitis media (ICD-10 - H66.91) Ear infections are often a secondary infection caused from an URI, the flu or allergies. Take medication as directed. Complete all doses, even if you feel better. Tylenol or ibuprofen can help with pain. Warm pack to area for comfort helps as well. Follow up with primary care provider if no improvement of symptoms. Jun,ronchitis (ICD-10 - J40) Take medications as directed. [...] weeks for the cough to go away [employer] Other 03-12-2022 Evaluation note* Encounter Date Diagnosis Assessment Notes Treatment Notes Treatment Clinical Notes Jun, Cough (ICD-10 - R05.9) Jun,ight acute otitis media (ICD-10 - H66.91)Ear infections are often a secondary infection caused from an URI, the flu or allergies. Take medication as directed. Complete all doses, even if you feel better. Tylenol or ibuprofen can help with pain. Warm pack to area for comfort helps as well. Follow up with primary care provider if no improvement of symptoms. Jun,ronchitis (ICD-10 - J40)Take medications as directed. Rest and increase fluid [...] weeks for the cough to go away [employer] Other Evaluation noteNo InformationNortWellSpan Gettysburg Hospital [employer] Other Evaluation note* Diagnosis Onset Date Resolution Status Bilateral otitis media noneactive [facility] [employer] Work Phone: Evaluation noteNo assessment information available [facility] [employer] Work Phone: History general Narrative - Reported* Type Description Date Medical History Fibroids Medical Historydegenerative disc diseaseSurgical Rqxcrjbcwybzfaljzygrip0196 Surgical EnvxacgBtb9078Fazjjjnr Nnjullfcldmxwdtiupw2134Twgnuqid HistoryTemporal arterial cjazsu5-69-8251Vmkbtachdbsosjz BjoxujvKvukwvvipgtzhet2143 Hospitalization HistorySvd & Zfa5566Fwekcumobtjinad KayvfdqFpv5648 Hospitalization QtniybzAnl7228 [employer] [facility] [employer] Other History general Narrative - ReportedNoValley Forge [facility] [employer] Other Reason for referral (narrative)No reason for referral information availableZanesville City Hospital [employer] Work Phone: Summary Purpose Family History Relationship Condition Age at Onset Recorded Date/T june father Malignant neoplasm of paranasal sinus Unk nown HypertensionUnknownbrotherMultiple sclerosisUnknownDeceasedUnknownfamily member DeceasedUnknowngrandparentDeceasedUnknownAneurysmUnknownNot SpecifiedLymphoma UnknownMalignant neoplasmUnknownnatural sonType 1 diabetes mellitusUnknown Relationship Condition Age at Onset Recorded Date/T june father Malignant neoplasm of paranasal sinus Unk nown HypertensionUnknownbrotherMultiple sclerosisUnknownDeceasedUnknownfamily member DeceasedUnknowngrandparentDeceasedUnknownAneurysmUnknownmotherLymphomaUnknown Malignant neoplasmUnknownsonType 1 diabetes mellitusUnknown Advance Directives TypeDate RecordedPatient RepresentativeExplanationAdvance Directives and Living WillPower of Commutator Assembler Advance Directive Response Recorded Date/ Time Advance Directives No May 20, 2018 4:07pm Advance Directive Response Recorded Date/ Time Advance Directives No May 20, 2018 3:07pm Assessments Diagnosis Irregular uterine bleeding Irregular menstrual cycle Chief Complaint and Reason for Visit Chief Complaint POSS LEFT EAR INFECT ION Reason for Visit Bilateral otitis med ia Chief Complaint Admit Date Ear pain October 17, 2024 12:2 4pm Reason for Visit Admit Date Bilateral acute otitis media October 17, 2024 12:24pm Chief Complaint Admit Date Ear pain March 02, 2025 1 1:16am Additional Source Comments INFORMATION SOURCE (unrecogn ized section and content) DATE CREATED AUTHOR 10/17/2017 [facility] DATE CREATED AUTHOR AUTHOR'S ORGANIZ ATION 08/22/2018 [facility] DATE CREATED AUTHOR AUTHOR'S ORGANIZ ATION 01/05/2019 [facility] DATE CREATED AUTHOR AUTHOR'S ORGANIZ ATION 06/23/2019 [facility] DATE CREATED AUTHOR AUTHOR'S ORGANIZ ATION 07/27/2022 [facility] DATE CREATED AUTHOR AUTHOR'S ORGANIZ ATION 10/09/2023 [facility] DATE CREATED AUTHOR AUTHOR'S ORGANIZ ATION 01/24/2024 [facility] REASON FOR VISIT (unrecogniz ed section and content) BLACK BRONCO, FEVER, WHEEZIN G, CONGESTION X6 DAYSBLACK BRONCO, FEVER, WHEEZING, CONGESTION X6 DAYSupper respiratoryEAR INFECTION BOTH EARS, BUT R IS WORSENo InformationCOUGH, [facility] Care Teams (unrecognized sec tion and content) Team Status: Active Member Role Status Dates Mabel Galvan MD Primary Care Provider Active Team Status: Inactive Member Role Status Dates Mabel Galvan MD Primary Care Provider Active Start: July 11, 2023 End: July 10siomara Crocker PASTEURIZING SUPERVISOR-CAttending ProviderActiveStart: July 11, 2023 End: July 11, 2023 Team Status: Inactive Member Role Status Dates Mabel Galvan MD Primary Care Provider Active Start: October 17, 2024 End: October 17, 2024Chiara Lance APRN PASTEURIZING SUPERVISOR-CAttending ProviderActive Start: October 17, 2024 End: October 17, 2024 Team Status: Inactive Member Role Status Dates Mabel Galvan MD Primary Care Provider Active Start: December 01, 2024 End: December 01nara Pérez APRNAtkaren ProviderActiveStart: December 01, 2024 End: December 01, 2024 Team Status: Active Member Role/Relationship Status Dates Ginny Trammell MD Primary Care Provider Active Team Status: Inactive Member Role/Relationship Status Alda Trammell MD Primary Care Provider Active Start: March 02, 2025 End: March 02, 2025Chiara Lance APRN PASTEURIZING SUPERVISOR-CAttending Provider ActiveStart: March 02, 2025 End: March 02, 2025 Goals (unrecognized section and content) Goals may [...] BE BASED ON THE PRIMARY CLINICAL RECORDS. [employer] provides no warranty or guarantee of the accuracy or completeness of information in this document.
--- OUTSIDE RECORDS SUMMARY | 2025-03-21 17:26 | XMS_ITS | Clinical Summary ---
Author Organization [facility] Address [address] [place] [address] Care Team Providers Care Core Maker Name Role Phone Akil Trammell MD Primary Care Provider [phone] Allergies Active AllergyReactionsCriticalityNoted YuzuSdxijqopBurkxjxdhrkDiojXju07/27/2024 Medications MedicationSigDispense QuantityRefillsLast FilledStart DateEnd DateStatus cyproheptadine (Periactin) 4 mg tablet Take 4 mg by mouth.07/11/2023ctive metoprolol succinate XL (Toprol-XL) 25 mg 24 hr tablet 25 mg.10/13/2018Active pantoprazole (ProtoNix) 40 mg EC tablet Take 40 mg by mouth.Active tiZANidine (Zanaflex) 4 mg tablet 4 mg.12/31/2018Active ferrous sulfate 325 (65 Fe) MG tablet Take 325 mg by mouth with breakfast.Active Active Problems ProblemNoted DateDiagnosed DcysVyvpzsyfndbs54/27/2024typical chest pain 01/23/2024Essential migfpkllbxlp19/27/2024Obstructive sleep apnea01/23/2024lass 2 obesity due to excess calories without serious comorbidity with body mass index (BMI) of 35.0 to 35.9 in adult01/23/2024 Family History Medical HistoryRelationNameCommentsNo Known ProblemsFatherNo Known Problems MotherRelationNameStatusCommentsFatherMother Social History Tobacco UseTypesPacks/DayYears UsedDateSmoking Tobacco: NeverSmokeless Tobacco: NeverAlcohol UseStandard Drinks/WeekCommentsNever0 (1 standard drink = 0.6 oz pure alcohol)CommentsUnknownSex and Gender InformationValueDate Recorded Sex Assigned at BirthNot on fileLegal WlyBwmded92/ 10:43 PM EDTGender IdentityNot on fileSexual OrientationNot on file Last Filed Vital Signs Vital SignReadingTime TakenCommentsBlood Edijcpvl157/8709 12:02 PM EDT Wjkxq0644 12:02 PM EDTTemperature--Respiratory Rate--Oxygen Saturation 98%01/23/2024 12:02 PM EDTInhaled Oxygen Concentration--Yztcno123 kg (221 lb) 01/23/2024 12:02 PM MNGBvmuzd835.6 cm (5' 6 )01/23/2024 12:02 PM EDTBody Mass Index35.67001/23/2024 12:02 PM EDT Plan of Treatment Health MaintenanceDue DateLast DoneCommentsCT Gjaxvgzagtdi71/06/1962Colonoscopy 2Colorectal Cancer Nlxnnjeqt95/06/1962FIT-DNA1961FIT1961 FOBT7565Afrvcbicirlow44/06/1962Depression Gguhrconv41/06/1974Pap Smear 1982Cervical Cancer Ziycbicss93/06/1992HPV/Rlbyqf6810/02/1991Mammogram 2001Zoster Vaccines (1 of 2)10/02/2011COVID-19 Vaccine ( season), 09/26/2020Influenza Vaccine (#1)2024 02/11/2007dult Ynvnrja96HIB VaccinesAged OutNo longer eligible based on patient's age to complete this topicHPV VaccinesAged OutNo longer eligible based on patient's age to complete this topicIPV VaccinesAged OutNo longer eligible based on patient's age to complete this topicMeningococcal B VaccineAged OutNo longer eligible based on patient's age to complete this topicMeningococcal VaccineAged OutNo longer eligible based on patient's age to complete this topicPneumococcal Vaccine: Pediatrics (0 to 5 Years) and At-Risk Patients (6 to 64 Years)Aged OutNo longer eligible based on patient's age to complete this topicRotavirus VaccinesAged OutNo longer eligible based on patient's age to complete this topic Insurance Care Teams Team MemberRelationshipSpecialtyStart Date Akil Trammell MD [address] [address] [facility] - [facility]01/23/24
--- OUTSIDE RECORDS SUMMARY | 2025-03-21 17:26 | XMS_ITS | Clinical Summary ---
Author Organization [facility] Address [address], [address] [place] [address] Care Team Providers Care Wellness Program Manager Name Role Phone Mabel Conway MD Primary Care Provider [phone] Allergies Active AllergyReactionsCriticalityNoted DateComments Sulfamethoxazole-TrimethoprimNausea And LqiknxrcLoa89/24/2017PenicillinsRashLow 12/06/2016 Medications MedicationSigDispense QuantityRefillsLast FilledStart DateEnd DateStatus metoprolol tartrate (LOPRESSOR) 25 MG tablet Indications:1/2 tablet dailyTake 25 mg by mouth daily Indications: 1/2 tablet dailyActive tiZANidine (ZANAFLEX) 4 MG tablet Take 4 mg by mouth ifmvrch874Active Active Problems Patient Care Coordination No te Formatting of this note migh t be different from the original. Left pelvic kidney ProblemNoted DateDiagnosed DateKidney /04/2018 Overview (05/01/2017): Left pelvic kidney Immunizations ImmunizationAdministration DatesNext DueTDaP, ADACEL (age 10y-64y), BOOSTRIX (age 10y+), IM, 0.5mL10/18/2016 Family History Medical HistoryRelationNameCommentsCancerFathersinusHigh Blood PressureFather ArthritisMotherCancerMothernon hodgkinsCancerOtherniecebreastCancerPaternal Aunt breastDiabetesSonRelationNameStatusCommentsBrotherDeceasedFatherAliveMaternal GrandfatherDeceasedMaternal GrandmotherDeceasedMotherAliveOthernieceAlive Paternal AuntPaternal GrandfatherDeceasedPaternal GrandmotherDeceasedSonAlive Social History Tobacco UseTypesPacks/DayYears UsedDateSmoking Tobacco: NeverSmokeless Tobacco: NeverAlcohol UseStandard Drinks/WeekCommentsNo0 (1 standard drink = 0.6 oz pure alcohol)PHQ-2AnswerDate RecordedPHQ-2 Mydre152CommentsNoSex and Gender InformationValueDate RecordedSex Assigned at BirthNot on fileLegal Sex Qpyclq7112/05/2016 5:25 PM EDTGender IdentityNot on fileSexual OrientationNot on file Last Filed Vital Signs Vital SignReadingTime TakenCommentsBlood Kbznzvwq670/68008/03/2019 3:36 PM EDT Pulse--Cjrdqvlcamf05.2 ??C (97.1 ??F)02/06/2018 11:20 AM EDTRespiratory Rate-- Oxygen Saturation--Inhaled Oxygen Concentration--Nnrymr41.5 kg (215 lb) 08/03/2019 3:36 PM BUYXmhyqa387.6 cm (5' 6 )08/03/2019 3:36 PM EDTBody Mass Index34.704 3:36 PM EDT Plan of Treatment Not on file Insurance Care Teams Team MemberRelationshipSpecialtyStart DateEnd Date Mabel Conway MD PCP - GeneralFamily Mscorraj01/14/17
== END 2025-03-21 17:22 | disposition home or self-care (01) ==
LOC: US 17:22
PROVIDERS: PCP Family Medicine; Visit Provider Family Medicine
DX: L03.90 Cellulitis, unspecified (principal)
CPT/HCPCS: 93970

== ENCOUNTER 2025-04-19 15:31 | Outpatient (OUT) | payer BC, SELFPAY ==
--- OUTSIDE RECORDS SUMMARY | 2025-04-05 04:15 | XMS_ITS ---
Author Organization [facility] [place] Address [address] [place] [address] Care Team Providers Care Wool Dyer Name Role Phone Cristo Trammell Primary Care Provider [phone] Allergies Allergen (clinical drug ingredient) Drug/Non Drug Allergy documented on EMR Reaction Allergy Type Onset Date Status PenicillinrashDrug AllergyActive REASON FOR VISIT right leg still swelling- finished ATB Medications Medication SIG (Take, Route, Frequency, Duration) Notes Start Date End Date Status tiZANidine HCl 4 MG TAKE 1 TABLET BY GREGG TH AT BEDTIME Orally Once a day; Duration: 90 days ActiveCefdinir 300 MG2 capsule Orally once a day; Duration: 10 days04/05/2025 ActiveDoxycycline Monohydrate 100 MG1 tablet Orally bid; Duration: 10 days 5ActiveMetoprolol Succinate ER 25 MGTAKE 1 TABLET BY MOUTH ONCE DAILY Orally Once a day; Duration: 90 daysActiveCyproheptadine HCl 4 MG1 tablet Orally once daily; Duration: 30 daysActiveFerrous Sulfate 325 (65 Fe) MG1 tablet Orally twice daily12/19/2023ctive Social History Tobacco Use: Social History Observation Description Date Details (start date - stop date) Never Smoker NA - NA Tobacco Use/Smoking Question Answer Notes Patient is a nonsmoker Problems Problem Type SNOMED Code ICD Code Onset Dates Problem Status W/U Status Risk Notes Problem Obese class III (finding) (363029744) Obe sity, class 3 (E66.813) ActiveconfirmedProblemBody mass index 40+ - severely obese (666425238)Body mass index [BMI] 40.0-44.9, adult (Z68.41)Activeconfirmed Vital Signs Weight 263.0 lbs 04/05/2025 Height 66 in 04/05/2025 Blood pressure systolic 142 mm Hg 04/05/20 25 Blood pressure diastolic 78 mm Hg 025 BMI 42.44 kg/m2 04/05/2025 Encounters Encounter Location Date Provider Diagnosis [facility] [address] [place] [address] 04/05/2025 Cristo Trammell Obesity, class 3 E66.813 ; Body mass index [BMI] 40.0-44.9, adult Z68.41 and Cellulitis L03.90 Assessments Encounter Date Diagnosis (ICD Code) Assessment Notes Treatment Notes Treatment Clinical Notes Section Notes 04/05/2025 Obesity, class 3 (ICD-10 - E66.8 13) 04/05/2025ody mass index [BMI] 40.0-44.9, adult (ICD-10 - Z68.41)04/05/2025 Cellulitis (ICD-10 - L03.90)RLE iwth swelling - overqll better - neg homans - if not better with 2nd round of AB - needs ct scan lower et with contrast Plan Of Treatment Medication Medication Name Sig Start Date Stop Date Notes Cefdinir 300 MG 2 capsule Orally once a day; Duration: 10 days 04/05/2025 Doxycycline Monohydrate 100 MG1 tablet Orally bid; Duration: 10 days04/05/2025 Treatment Notes Assessment Notes Cellulitis RLE iwth swelling - overqll better - neg homans - if not better with 2nd round of AB - needs ct scan lower et with contrast Progress Notes * Monet MONTANEZ SDOB:1960 ( 64 yo F)Acc No.[id number]:04/05/2025 Progress Note Patient: Monet KIRBY :?Akil Trammell ([facility]), MDDOB:1960???Age: 64 Y???Sex:FemaleDate:04/05/2025Phone:[phone]:[facility]-[phone] In:09:17 AM ESTCheck Out:09:48 AM EST Subjective: * Chief Complaints: * r ight leg still swelling- finished ATB * HPI: ???General:? Still leg swelling? - some kandice - jus feel tight -? cellultis area looks improving had venous dooppler - no DVT - swelling beter [facility] tehn. * Active Problem List Z00.00 Well adult Modified On:05/27/2023/U Status:ztxfjvuaoI98.33Obstructive sleep apnea (adult) (pediatric) Modified On:07/24/2023/U Status:jicmqfxpmI77.9Chest pain Modified On:12/01/2023U Status:hvjqzcaipF81.9Hypothyroidism Modified On:12/19/2023U Status:gzlcofnujG57.90Cellulitis Modified On:07/14/2024U Status:cyxtvbcifL96.644Thumb pain, right Modified On:12/07/2024U Status:dqdvgxvipK40.813Obesity, class 3 Modified On:04/05/2025U Status:oicnqotymS77.41Body mass index [BMI] 40.0-44.9, adult Modified On:04/05/2025 Status:confirmed * Medical History: * Surgical History: T emporal Artery Bx 09/2018CHOLECYSTECTOMY TONSILLECTOMY,UNDER 12YRS Tubes tied * Hospitalization/Major Diagno stic Procedure: N o Hospitalization History. * Family History: F ather: alive, Sinus Cancer. M other: alive, Non Hodgkins lymphoma. B rother(s): , multiple sclerosis. S on(s): alive, type I diabetes. 1 brother(s) . 3 son(s) . . * Social History: ???Tobacco Use:?Tobacco Use/Smoking?Patient is a?nonsmoker * Medications: T akingCyproheptadine HCl 4 MG Tablet 1 tablet Orally once daily Ferrous Sulfate 325 (65 Fe) MG Tablet 1 tablet Orally twice daily Metoprolol Succinate ER 25 MG Tablet Extended Release 24 Hour TAKE 1 TABLET BY MOUTH ONCE DAILY Orally Once a day tiZANidine HCl 4 MG Tablet TAKE 1 TABLET BY MOUTH AT BEDTIME Orally Once a day Taking Cyproheptadine HCl 4 MG Tablet 1 tablet Orally once daily Taking Ferrous Sulfate 325 (65 Fe) MG Tablet 1 tablet Orally twice daily Taking Metoprolol Succinate ER 25 MG Tablet Extended Release 24 Hour TAKE 1 TABLET BY MOUTH ONCE DAILY Orally Once a day Taking tiZANidine HCl 4 MG Tablet TAKE 1 TABLET BY MOUTH AT BEDTIME Orally Once a day DiscontinuedDoxycycline Monohydrate 100 MG Tablet 1 tablet Orally bid Lasix(Furosemide) 40 MG Tablet 1 tablet Orally Once a day Medication List reviewed and reconciled with the patientDiscontinued Doxycycline Monohydrate 100 MG Tablet 1 tablet Orally bid Discontinued Lasix(Furosemide) 40 MG Tablet 1 tablet Orally Once a day Medication List reviewed and reconciled with the patient * Allergies: P enicillin: rash - Allergyno[Allergies Verified] Objective: * Vitals: W t:263.0lbs, Ht: 66 in, BP:142/78mm Hg, BMI:42.44Index, Ht-cm: 167.64 cm, Wt-k.3 kg. * Examination: ???Extremities: ???R leg with mild erytjemp an d calor - ov er abrasion -0 some difuse tendernss - neg homans. Assessment: * Assessment: 1.?Obesity, class 3 - E66.813 (Primary)???2.?Body mass index [BMI] 40.0-44.9, adult - Z68.41???3.?Cellulitis - L03.90??? Plan: * Treatment: Start Cefdinir Capsule, 300 MG, 2 capsule, Orally, once a day, 10 days, 20 Capsule, Refills 1;?Start Doxycycline Monohydrate Tablet, 100 MG, 1 tablet, Orally, bid, 10 days, 20 Tablet, Refills 1. ?2.?Cellulitis? Notes: RLE iwth swelling - overqll better - neg homans - if not better with 2nd round of AB - needsct scan lower et with contrast?? * Procedure Codes: * Preventive Medicine: ??Screenings/Counseling:?BMI ACTION PLAN?Above Normal BMI Follow-up?Dietary management education, guidance, and counseling * * Sign off status: CompletedVisit Status:?CHK (Check Out) true * Provider: Paul Trammell ([facility])MD Date: 1 06/06/2024 Generated for Printing/Faxing/eTransmitting on:?04/19/2025 03:33 PM EST History and Physical Notes * HPI (History of Present Illness) CategorySub-CategoryDetailNotesCategory NotesGeneral Still leg swelling - some kandice - jus feel tight - cellultis area looks improving had venous dooppler - no DVT - swelling beter [facility] tehn Examination CategorySub-CategoryDetailNotesCategory NotesExtremitiesR leg with mild erytjemp an d calor - ov er abrasion -0 some difuse tendernss - neg homans
--- OUTSIDE RECORDS SUMMARY | 2025-04-11 08:14 | XMS_ITS ---
Author Organization [facility] [place] Address [address] [place] [address] Care Team Providers Care Candy Puller Name Role Phone Cristo Trammell Primary Care Provider [phone] REASON FOR VISIT update on leg Encounters Encounter Location Date Provider Diagnosis [facility] [address] [place] [address] 04/11/2025 Cristo Trammell Cellulitis of lower extremity L03.119 ; Swelling of lower extremity M79.89 and Tenderness in limb M79.609 Assessments Encounter Date Diagnosis (ICD Code) Assessment Notes Treatment Notes Treatment Clinical Notes Section Notes 04/11/2025 Cellulitis of lower extremity (I CD-10 - L03.119) 04/11/2025Swelling of lower extremity (ICD-10 - M79.89)04/11/2025Tenderness in limb (ICD-10 - M79.609) Plan Of Treatment Pending Test Test Name Order Date MRI Lower Extremity w/o Contrast Right 1 06/12/2024 Progress Notes * CAMDEN Monet SDOB:1960 ( 64 yo F)Acc No.[id number]:04/11/2025 Patient:?Monet MONTANEZ :1960???Age:64 Y???Sex:FemalePhone:[phone] Address:[address] [place] [address], [address] Subjective: * Chief Complaints: * U pdate on leg * Medical History: * Surgical History: * Hospitalization/Major Diagno stic Procedure: * Medications: Objective: * Vitals: * Physical Examination: ??? Assessment: * Assessment: 1.?Cellulitis of lower extremity - L03.119 (Primary)???2.?Swelling of lower extremity - M79.89???3.?Tenderness in limb - M79.609??? Plan: * Treatment: ?Imaging: MRI Lower Extremity w/o Contrast Right2.?Swelling of lower extremity?Imaging: MRI Lower Extremity w/o Contrast Right3.?Tenderness in limb?Imaging: MRI Lower Extremity w/o Contrast Right * Procedure Codes: * true * Date:?Generated for Printing/Faxing/eTransmitting on:?04/19/2025 03:33 PM EST
--- OUTSIDE RECORDS SUMMARY | 2025-04-19 15:33 | XMS_ITS | Clinical Summary ---
Author Organization [facility] Address [address] [place] [address] Care Team Providers Care Cell Tester Name Role Phone Mabel Conway MD Primary Care Provider [phone] Nathaniel Lau Unavailable [phone] Allergies Active AllergyReactionsCriticalityNoted ErgpPzkbopjtXqminexikhGchay81/29/2018 Sulfamethoxazole-WdwenubtegolAxpedprgTee52/24/2017 Medications MedicationSigDispense QuantityRefillsLast FilledStart DateEnd DateStatus acetaminophen [...] drink = 0.6 oz pure alcohol)PHQ-2AnswerDate RecordedPHQ-2 gycij388Area Deprivation Index AnswerDate RecordedNational Score (1-100), lower number is lower riskNot on file 04/04/2020State Score (1-10), lower number is lower riskNot on file04/04/2020 Data from: https://www.neighborhoodatlas.medicine.[facility].edu/. Last address used for calculationNot on file04/04/2020CommentsNoSex and Gender Information ValueDate RecordedSex Assigned at BirthNot on fileLegal LdvRjtskf86/21/2018 11:07 AM EDTGender IdentityNot on fileSexual OrientationNot on file Last Filed Vital Signs Vital SignReadingTime TakenCommentsBlood Qiqjglyb836/9304 10:54 AM EDT Lclfz805608/19/2018 10:54 AM EDTTemperature--Respiratory Odda7436 9:17 AM EDTOxygen Vfntedrfgv29%07/24/2017 9:17 AM EDTInhaled Oxygen Concentration-- Opxlaw751.4 kg (239 lb)08/19/2018 10:54 AM KVQHhpaih659.6 cm (5' 6 )08/19/2018 10:54 AM EDTBody Mass Index38.5804 10:54 AM EDT Plan of Treatment Health MaintenanceDue DateLast DoneCommentsAnxiety Pacvaknll90/06/1980Depression Eagdatsqy81/06/1980HIV Abivnysod82/06/1980Hepatitis C Dhbyyghxg19/06/1980 Cervical Cancer Wktqlbxna21/06/1983Mammogram Qfbupxerj39/06/2002CT Colonography 2006Cologuard (FIT-DNA)10/01/20063051Vwfwqufjvcl35/06/2007Colorectal Cancer Uynlmshay90/06/2007Diabetes Jqxdtbqhl40/06/2007Fecal Occult Blood2006Lipid Vmvjlewps28/06/2452Jmuegjtuxqsbk82/06/2007Pneumococcal Vaccine: 50+ (1 of 1 - PCV)10/02/2011Shingrix Vaccine (1 of 2)10/02/2011Covid-19 Vaccine (1 - 2024- season)2024Influenza Vaccine (#1)DTaP,Tdap,Td Vaccine (2 - Td or Tdap)RSV Vaccine (1 - 1-dose 75+ series) 2036 Insurance Care Teams Team MemberRelationshipSpecialtyStart DateEnd Date Mabel Conway MD [address] [place] [address] PCP - GeneralFamily Medicine04/28/15 Nathaniel Lau [address] [place] [address] Primary Staff PhysicianCardiology07/14/18
--- OUTSIDE RECORDS SUMMARY | 2025-04-19 15:33 | XMS_ITS | Clinical Summary ---
Author Organization [facility] Address [address], [address] [place] [address] Care Team Providers Care Dramatic Teacher Name Role Phone Mabel Conway MD Primary Care Provider [phone] Allergies Active AllergyReactionsCriticalityNoted DateComments Sulfamethoxazole-TrimethoprimNausea And QrpnbbeaTbc19/24/2017PenicillinsRashLow 12/06/2016 Medications MedicationSigDispense QuantityRefillsLast FilledStart DateEnd DateStatus metoprolol tartrate (LOPRESSOR) 25 MG tablet Indications:1/2 tablet dailyTake 25 mg by mouth daily Indications: 1/2 tablet dailyActive tiZANidine (ZANAFLEX) 4 MG tablet Take 4 mg by mouth snhpghr612Active Active Problems Patient Care Coordination No te Formatting of this note migh t be different from the original. Left pelvic kidney ProblemNoted DateDiagnosed DateKidney mnpazlgwubng18/04/2018 Overview (05/01/2017): Left pelvic kidney Immunizations ImmunizationAdministration DatesNext DueTDaP, ADACEL (age 10y-64y), BOOSTRIX (age 10y+), IM, 0.5mL10/18/2016 Family History Medical HistoryRelationNameCommentsCancerFathersinusHigh Blood PressureFather ArthritisMotherCancerMothernon hodgkinsCancerOtherniecebreastCancerPaternal Aunt breastDiabetesSonRelationNameStatusCommentsBrotherDeceasedFatherAliveMaternal GrandfatherDeceasedMaternal GrandmotherDeceasedMotherAliveOthernieceAlive Paternal AuntPaternal GrandfatherDeceasedPaternal GrandmotherDeceasedSonAlive Social History Tobacco UseTypesPacks/DayYears UsedDateSmoking Tobacco: NeverSmokeless Tobacco: NeverAlcohol UseStandard Drinks/WeekCommentsNo0 (1 standard drink = 0.6 oz pure alcohol)PHQ-2AnswerDate RecordedPHQ-2 Tixze865CommentsNoSex and Gender InformationValueDate RecordedSex Assigned at BirthNot on fileLegal Sex Akqvcg9812/05/2016 5:25 PM EDTGender IdentityNot on fileSexual OrientationNot on file Last Filed Vital Signs Vital SignReadingTime TakenCommentsBlood Gmtcyayr667/68008/03/2019 3:36 PM EDT Pulse--Pvxzhtrlvmr87.2 ??C (97.1 ??F)02/06/2018 11:20 AM EDTRespiratory Rate-- Oxygen Saturation--Inhaled Oxygen Concentration--Pqgfdd96.5 kg (215 lb) 08/03/2019 3:36 PM MFNKffuuj927.6 cm (5' 6 )08/03/2019 3:36 PM EDTBody Mass Index34.704 3:36 PM EDT Plan of Treatment Not on file Insurance Care Teams Team MemberRelationshipSpecialtyStart DateEnd Date Mabel Conway MD PCP - GeneralFamily Duemndpc82/14/17
--- OUTSIDE RECORDS SUMMARY | 2025-04-19 15:33 | XMS_ITS | Patient Health Record ---
Author Organization [facility] in [place] Address [address] [place] [address] Care Team Providers Care Facility Maintenance Manager Name Role Phone Cristo Barnett Primary Care Provider [phone] Allergies Allergen (clinical drug ingredient) Drug/Non Drug Allergy documented on EMR Reaction Allergy Type Onset Date Status PenicillinrashDrug AllergyActive Results Component Value Reference Range Notes XR hand RT 2V Reviewed date:12/07/2024 08:06:44 PM Interpretation: Performing Lab: Notes/Report: Source Facility: [place] [address] XRay Report Signed Patient: MONET HANNAH MR#: [id number] : 1960 Acct:[id number] Age/Sex: 64 / F ADM Date: 12/07/24 Loc: RAD Attending Dr: Ginny Barnett M.D. Ordering Physician: Ginny Barnett M.D. Date of Service: 12/07/24 Procedure(s): XR hand RT 2V Accession Number(s): [id number] cc: Ginny Barnett M.D. [place] [id number] Patient Name: MONET HANNAH MRN: [id number] date: 1960 Sex: F Assigned Patient Location: RAD Current Patient Location: RAD Accession/Order Number: [id number] Exam Date: 12/07/2024 12:23 Report Date: 12/07/2024 [...] PROCESS. Impression dictated by: John Lorenzo Jr., NiurkaOJacqueline 12/07/2024 12:24 PM Dictation Location: [place] [address] Electronically authenticated by: [id number] Y Date: 12/07/2024 12:24 Dictated By: John Lorenzo M.D. Signed By: 12/07/24 1226 DD/ 1224 TD/TT: Cloth Mercerizer Back Tender: MM tomosynthesis screening B I Reviewed date:01/19/2025 05:38:32 PM Interpretation: Performing Lab: Notes/Report: Source Facility: [place] [address] Mammography Report Signed Patient: MONET HANNAH MR#: [id number] : 1960 Acct:[id number] Age/Sex: 64 / F ADM Date: 01/19/25 Loc: MRI Attending Dr: Ginny Barnett M.D. Ordering Physician: Ginny Barnett M.D. Results: Date of Service: 01/19/25 Follow Up: Procedure(s): MM tomosynthesis screening BI Accession Number(s): [id number] cc: Ginny Barnett M.D. Patient Name: MONET HANNAH MR#: [id number] : 1960 Exam Date: 01/19/2025 Ordering Doctor: DR GINNY BARNETT . RADIOLOGY REPORT PROCEDURE: MM TOMOSYNTHESIS SCREENING BI COMPARISON: MM TOMOSYNTHESIS SCREENING BI, 10/14/2023. MG MAMM SCREEN 3D JUAN CAD, 07/16/2022. MG MAMM SCREEN 3D JUAN CAD, 12/25/2020. MG MAMM JUAN SCRN W CAD DIG, 12/01/2012. INDICATIONS: Screening Calculator Name NCI Breast Cancer Risk Assessment Tool 5 Year Breast Cancer Risk 1.00% Lifetime Breast Cancer Risk 4.40% Personal Breast Cancer No Personal Ovarian Cancer No Treatments None Family Cancers Aunt-paternal with breast cancer at age 40; Aunt-paternal with breast cancer at age 40; Father with sinus cancer at age 70; Mother with lymohoma cancer at age 58. LOCATION: [facility] BREAST COMPOSITION: There are scattered areas of fibroglandular density. FINDINGS: RIGHT BREAST: No significant suspicious finding. There is a similar focal asymmetry. Benign-appearing lymph nodes within along the right chest wall . LEFT BREAST: No significant suspicious finding. There is a similar focal asymmetry. Benign-appearing lymph nodes are noted along left chest wall . DIAGNOSTIC CATEGORY 2--BENIGN FINDING. NO CHANGE FROM COMPARISON. RECOMMENDATIONS: ROUTINE MAMMOGRAM AND CLINICAL EVALUATION IN 12 MONTHS. Dictated by: Karsten Hines MD on 01/19/2025 at 15:06 Approved by: Karsten Hines MD on 01/19/2025 at 15:08 Dictated By: Karsten Hines M.D. Signed By: 01/19/25 1508 DD/ 1508 TD/TT: Cloth Mercerizer Back Tender: edgardo RT mariaa mcmillan Reviewed date:01/19/2025 05:38:32 PM Interpretation: Performing Lab: Notes/Report: Source Facility: [facility]-[address] [place] [address] [place] [address] Magnetic Resonance Report Signed Patient: MONET HANNAH MR#: [id number] : 1960 Acct:[id number] Age/Sex: 64 / F ADM Date: 01/19/25 Loc: MRI Attending Dr: Ginny Barnett M.D. Ordering Physician: Ginny Barnett M.D. Date of Service: 01/19/25 Procedure(s): MR reynoso RT mariaa mcmillan Accession Number(s): [id number] cc: Ginny Barnett M.D. [place] [address] Patient Name: MONET HANNAH MRN: [id number] date: 1960 Sex: F Assigned Patient Location: MRI Current Patient Location: MRI Accession/Order Number: [id number] Exam Date: 01/19/2025 13:00 Report Date: 01/19/2025 14:27 At the request of: GINNY BARNETT MD Procedure: MR hand RT wo con MR hand RT wo con 01/19/2025 1:49 PM SIGNS AND SYMPTOMS: Right Thumb numbness with palpable lump along the palmar surface PROTOCOL: Multiplanar multisequence MR images of the right hand/thumb without IV contrast COMPARISON: 12/07/2024 FINDINGS: Alignment: Normal Fluid: Carpus effusion: None. Distal radioulnar joint effusion: None. Intrinsic ligaments: Scapholunate: Intact. Lunotriquetral: Intact. Ulnar side: Triangular fibrocartilage: Incompletely visualized.. Lunate facet: Subcortical cystic changes are noted Hamate-lunate: Normal. Extensor compartment: I: Intact. II: Intact. III: Intact. IV: Intact. V: Intact. : Intact. Flexor compartment: Carpal tunnel: Median nerve: Normal. Flexor retinaculum: Intact. Flexor tendons: Intact. Guyon canal: Normal. Articular: Thumb carpometacarpal joint: Moderate degenerative changes are noted at the thumb carpometacarpal junction.. Scaphotrapeziotrapezoidal joint: Subcortical cystic changes noted within the head of the scaphoid.. Pisiform-triquetral joint: Normal. Bones (other than subarticular marrow): There is narrowing of the interphalangeal joint of the thumb. Muscles: Normal. Vessels: Normal. MR/MR hand RT wo con IMPRESSION: No evidence of mass. Degenerative changes are noted at the first carpometacarpal junction and along the interphalangeal joint of the thumb. Degenerative changes are also noted within the lunate and scaphoid within the wrists. The median nerve is normal in signal and diameter within the carpal tunnel. Impression dictated by: Karsten Hines M.D. 01/19/2025 2:27 PM Dictation Location: [place] [address] Electronically authenticated by: [id number] Y Date: 01/19/2025 14:27 Dictated By: Karsten Hines M.D. Signed By: 01/19/25 1429 DD/ 1427 TD/TT: Cloth Mercerizer Back Tender: XR HAND LT MIN 3V Reviewed date:03/15/2025 06:56:27 PM Interpretation: Performing Lab: Notes/Report: Source Facility: [place] [address] [place] [address] XRay Report Signed Patient: MONET HANNAH MR#: [id number] : 1960 Acct:[id number] Age/Sex: 64 / F ADM Date: 03/15/25 Loc: ER Attending Dr: Ordering Physician: Earl Leonard M.D. Date of Service: 03/15/25 Procedure(s): XR hand LT min 3V Accession Number(s): [id number] cc: Ginny Barnett M.D.; Earl Leonard M.D. [place] [address] Patient Name: MONET HANNAH MRN: [id number] date: 1960 Sex: F Assigned Patient Location: ER Current Patient Location: ER Accession/Order Number: [id number] Exam Date: 03/15/2025 08:50 Report Date: 03/15/2025 09:35 At the request of: EARL LEONARD MD Procedure: XR elbow RT min 3V CLINICAL DATA: Patient fell and has pain at the right knee, right elbow and left hand. RIGHT KNEE - 3 views COMPARISON: None AP, lateral and internal oblique views were obtained. No acute fracture or dislocation is identified. There is minimal narrowing at the medial tibiofemoral joint compartment. There is minor spurring at the posterior patella. There is a trace amount of joint fluid. No soft tissue swelling is noted. XR/XR hand LT min 3V IMPRESSION: NO ACUTE BONY INJURY. RIGHT ELBOW - 3 views COMPARISON: None AP, lateral and internal oblique views were obtained. No acute fracture or dislocation is identified. There is minimal degenerative change. No elbow effusion or soft tissue swelling is seen. IMPRESSION: NO ACUTE BONY INJURY. LEFT HAND - 3 views COMPARISON: None AP, lateral and oblique views were obtained. There is no evidence of fracture or dislocation. There are no significant soft tissue abnormalities. IMPRESSION: NO ACUTE BONY INJURY. Impression dictated by: Radha Mace M.D. 03/15/2025 9:35 AM Dictation Location: [place] [address] Electronically authenticated by: [id number] Y Date: 03/15/2025 09:35 Dictated By: Radha Mace M.D. Signed By: 03/15/2538 DD/ 4 TD/TT: Cloth Mercerizer Back Tender: XR KNEE RT 3V Reviewed date:03/15/2025 06:56:27 PM Interpretation: Performing Lab: Notes/Report: Source Facility: [place] [address] XRay Report Signed Patient: MONET HANNAH MR#: [id number] : 1960 Acct:[id number] Age/Sex: 64 / F ADM Date: 03/15/25 Loc: ER Attending Dr: Ordering Physician: Earl Leonard M.D. Date of Service: 03/15/25 Procedure(s): XR knee RT 3V Accession Number(s): [id number] cc: Ginny Barnett M.D.; Earl Leonard M.D. [place] [address] Patient Name: MONET HANNAH MRN: [id number] date: 1960 Sex: F Assigned Patient Location: ER Current Patient Location: ER Accession/Order Number: [id number] Exam Date: 03/15/2025 08:50 Report Date: 03/15/2025 09:35 At the request of: EARL LEONARD MD Procedure: XR elbow RT min 3V CLINICAL DATA: Patient fell and has pain at the right knee, right elbow and left hand. RIGHT KNEE - 3 views COMPARISON: None AP, lateral and internal oblique views were obtained. No acute fracture or dislocation is identified. There is minimal narrowing at the medial tibiofemoral joint compartment. There is minor spurring at the posterior patella. There is a trace amount of joint fluid. No soft tissue swelling is noted. XR/XR knee RT 3V IMPRESSION: NO ACUTE BONY INJURY. RIGHT ELBOW - 3 views COMPARISON: None AP, lateral and internal oblique views were obtained. No acute fracture or dislocation is identified. There is minimal degenerative change. No elbow effusion or soft tissue swelling is seen. IMPRESSION: NO ACUTE BONY INJURY. LEFT HAND - 3 views COMPARISON: None AP, lateral and oblique views were obtained. There is no evidence of fracture or dislocation. There are no significant soft tissue abnormalities. IMPRESSION: NO ACUTE BONY INJURY. Impression dictated by: aRdha Mace M.D. 03/15/2025 9:35 AM Dictation Location: [place] [address] Electronically authenticated by: [id number] Y Date: 03/15/2025 09:35 Dictated By: Radha Mace M.D. Signed By: 03/15/2538 DD/ 4 TD/TT: Cloth Mercerizer Back Tender: XR elbow RT min 3V Reviewed date:03/15/2025 06:56:27 PM Interpretation: Performing Lab: Notes/Report: Source Facility: [place] [address] XRay Report Signed Patient: MONET HANNAH MR#: [id number] : 1960 Acct:[id number] Age/Sex: 64 / F ADM Date: 03/15/25 Loc: ER Attending Dr: Ordering Physician: Earl Leonard M.D. Date of Service: 03/15/25 Procedure(s): XR elbow RT min 3V Accession Number(s): [id number] cc: Ginny Barnett M.D.; Earl Leonard M.D. [place] [address] Patient Name: MONET HANNAH MRN: [id number] date: 1960 Sex: F Assigned Patient Location: ER Current Patient Location: ER Accession/Order Number: [id number] Exam Date: 03/15/2025 08:50 Report Date: 03/15/2025 09:35 At the request of: EARL LEONARD MD Procedure: XR elbow RT min 3V CLINICAL DATA: Patient fell and has pain at the right knee, right elbow and left hand. RIGHT KNEE - 3 views COMPARISON: None AP, lateral and internal oblique views were obtained. No acute fracture or dislocation is identified. There is minimal narrowing at the medial tibiofemoral joint compartment. There is minor spurring at the posterior patella. There is a trace amount of joint fluid. No soft tissue swelling is noted. XR/XR elbow RT min 3V IMPRESSION: NO ACUTE BONY INJURY. RIGHT ELBOW - 3 views COMPARISON: None AP, lateral and internal oblique views were obtained. No acute fracture or dislocation is identified. There is minimal degenerative change. No elbow effusion or soft tissue swelling is seen. IMPRESSION: NO ACUTE BONY INJURY. LEFT HAND - 3 views COMPARISON: None AP, lateral and oblique views were obtained. There is no evidence of fracture or dislocation. There are no significant soft tissue abnormalities. IMPRESSION: NO ACUTE BONY INJURY. Impression dictated by: Radha Mace M.D. 03/15/2025 9:35 AM Dictation Location: [place] [address] Electronically authenticated by: [id number] Y Date: 03/15/2025 09:35 Dictated By: Radha Mace M.D. Signed By: 03/15/2538 DD/ TD/TT: Cloth Mercerizer Back Tender: Reason For Referral Diagnosis 1 Thumb pain, right (M 79.644) Referral Organization [facility] Referring Provider First Name Cristo Referring Provider Last Name Jp [facility], [facility] erapy Referred Provider Specialty Occupational Therapy Referral Priority Routine Diagnosis 1 Thumb pain, right (M 79.644) Referral Organization [facility] Referring Provider First Name Cristo Referring Provider Last Name Jp Referring Provider [facility] car Referred Provider Harper No Referred Provider Specialty Orthopedic S urgery Referral Priority Routine Medications Medication SIG (Take, Route, Frequency, Duration) Notes Start Date End Date Status Cyproheptadine HCl 4 MG 1 tablet Orally once jim ly; Duration: 30 days ActivetiZANidine HCl 4 MGTAKE 1 TABLET BY MOUTH AT BEDTIME Orally Once a day; Duration: 90 daysActiveCefdinir 300 MG2 capsule Orally once a day; Duration: 10 days5ActiveDoxycycline Monohydrate 100 MG1 tablet Orally bid; Duration: 10 days5ActiveFerrous Sulfate 325 (65 Fe) MG1 tablet Orally twice daily 4ActiveMetoprolol Succinate ER 25 MGTAKE 1 TABLET BY MOUTH ONCE DAILY Orally Once a day; Duration: 90 daysActive Social History Tobacco Use: Social History Observation Description Date Details (start date - stop date) Never Smoker NA - NA Tobacco Use/Smoking Question Answer Notes Patient is a nonsmoker Alcohol Screen (Audit-C) Question Answer Notes Did you have a drink containing alcohol in the p ast year? No Simgdd7XazatbroinxqecAgjittlyGYSMN-Z (Standard) Question Answer Notes Did you have a drink containing alcohol in the p ast year? No Xbcubc7YfblkpyfmoujdcPujggrre Problems Problem Type SNOMED Code ICD Code Onset Dates Problem Status W/U Status Risk Notes Problem Obstructive sleep ap breann syndrome (disorder) (97313556) Obstructive sleep apnea (adult) (pediatric) (G47.33) ActiveconfirmedProblemChest pain (64825824)Chest pain (R07.9)Activeconfirmed ProblemHypothyroidism (51297582)Hypothyroidism (E03.9)ActiveconfirmedProblemWell adult (886618730)Well adult (Z00.00)ActiveconfirmedProblemCellulitis (152897870) Cellulitis (L03.90)ActiveconfirmedProblemPain in limb (19690971)Thumb pain, right (M79.644)ActiveconfirmedProblemBody mass index 40+ - severely obese (154273551)Body mass index [BMI] 40.0-44.9, adult (Z68.41)ActiveconfirmedProblem Obese class III (finding) (711908811)Obesity, class 3 (E66.813)Activeconfirmed Vital Signs Blood pressure diastolic 78 mm Hg 04/05/2025 Jadjrh06 in04/05/2025lood pressure epqpllyh232 mm Hg04/05/20250762Koelub053.0 lbs 04/05/2025BMI42.44 kg/m204/05/2025 Encounters Encounter Location Date Provider Diagnosis [facility] [address] [place] [place] [address] 07/14/2024 Cristo Hoy Cellulitis L03.90 [facility] [address] [place] [address] 12/07/2024 Cristo Hoy Thumb pain, right M79.644 [facility] [address] [facility] [place] [address] 12/23/2024 Cristo Hoy Thumb pain, right M79.644 [facility] [address] [place] [place] [address] 03/21/2025 Cristo Hoy Cellulitis L03.90 [facility] [address] [place] [address] 04/05/2025 Cristo Hoy Obesity, class 3 E66.813 ; Body mass index [BMI] 40.0-44.9, adult Z68.41 and Cellulitis L03.90 [facility] [address] [place] [address] 11/08/2024 Cristo Hoy Well adult Z00.00 [facility] [address] [place] [place] [address] 12/07/2024 Cristo Hoy Thumb pain, right M79.644 [facility] [address] [place] [place] [address] 12/23/2024 Cristo Hoy [facility] [place] [place] [address] 12/23/2024[facility] [facility] [place] [address]Doug [facility]BP[facility] [facility] [place] [address]Doug HoyThumb pain, right M79.644BK[facility] [facility] [place] [address]/30/2025Doug [facility] [place] [address] 03/22/2025Doug [facility] [place] [address]/04/2024Do[facility] [place] [address]/Do HoyCellulitis of lower extremity L03.119 ; Swelling of lower extremity M79.89 and Tenderness in limb M79.609[facility] [place] [address]/ Cristo [place] adult Z00.00 Assessments Encounter Date Diagnosis (ICD Code) Assessment Notes Treatment Notes Treatment Clinical Notes Section Notes 04/05/2025 Body mass index [BMI] 40.0-44.9, adult (ICD-10 - Z68.41) 04/05/2025Obesity, class 3 (ICD-10 - E66.813)11/08/2024Well adult (ICD-10 - Z00.00)12/07/2024umb pain, right (ICD-10 - M79.644)01/19/2025umb pain, right (ICD-10 - M79.644)04/11/2025Swelling of lower extremity (ICD-10 - M79.89) 04/11/2025ellulitis of lower extremity (ICD-10 - L03.119)5Cellulitis (ICD-10 - L03.90)12/07/2024umb pain, right (ICD-10 - M79.644)12/23/2024umb pain, right (ICD-10 - M79.644)5Cellulitis (ICD-10 - L03.90)04/12/2025 Well adult (ICD-10 - Z00.00)5Cellulitis (ICD-10 - L03.90)RLE iwth swelling - overqll better - neg homans - if not better with 2nd round of AB - needs ct scan lower et with mouiisyx48/15/2025Tenderness in limb (ICD-10 - M79.609) Plan Of Treatment Pending Test Test Name Order Date CMP (COMPLETE METABOLIC PANEL) 3 CMP (COMPLETE METABOLIC PANEL) 4 HEMOGLOBIN A1C (GLYCO) 10/07/2022 HEMOGLOBIN A1C (GLYCO) 12/18/2023 IRON, TOTAL 10/07/2022 IRON, TOTAL 12/18/2023 LIPID PANEL (CHOL/TRIG/HDL/LDL) 12/18/19 24 LIPID PANEL (CHOL/TRIG/HDL/LDL) 10/08/19 23 CBC WITH DIFF (EXP 02/2025) 10/07/2022 CBC WITH DIFF (EXP 02/2025) 12/18/2023 VITAMIN D, 25 LEVEL (TOTAL) 10/07/2022 T3 FREE, T4 FREE and TSH 12/18/2023 FECAL OCCULT BLOOD 12/18/2023 URINE CULTURE 10/10/2022 Sleep study - Diagnostic Polysonogram Insulin Level 10/07/2022 Insulin Level 12/18/2023 MRI Lower Extremity w/o Contrast Right 1 06/12/2024 Treadmill Stress Test with Nuclear Imagi ng 12/01/2023 STOOL OCCULT BLOOD 10/07/2022 XR Hand 2 Views Right 12/07/2024 AMYLASE 10/10/2022 CBC AUTO DIFF 10/10/2022 CBC AUTO DIFF 12/18/2023 LIPASE 10/10/2022 PROF 14(COMP METB) 10/10/2022 SNR 04 URINALYSIS 10/10/2022 URINE MICROSCOPIC ONLY 10/10/2022 US CASPER DOP LEG LT 03/21/2025 US CASPER DOP LEG RT 03/21/2025 THYROID PANEL (T4/TSH/FREE T3) 4 THYROID PANEL (T4/TSH/FREE T3) 3 Holter Monitor - 3 days up to 14 days XR HIP RT 2 3V W PELVIS 12/07/2024 MRI HAND RIGHT WO CONTRAST 12/07/2024 Insurance Providers Payer Name Payer Address Payer Phone Subscriber Number Group Number Insured Name Patient Relationship to Insured Coverage Start Date Coverage End Date [employer] [place] [address] [place] [address] [id number] Zhao Hannah - patient is the spouse of the insured Medical (General) History Medical History History ICD Code Cervical disc disease M50.90 Hemorrhoids K64.9 Lumbar radiculopathy M54.16 Palpitation R00.2 Surgical History Surgery Date(Month/Year) Tubes tied TONSILLECTOMY,UNDER 12YRSCHOLECYSTECTOMYTemporal Artery Bx09/2018
--- OUTSIDE RECORDS SUMMARY | 2025-04-19 15:33 | XMS_ITS | Clinical Summary ---
Author Organization [facility] Address [id number] [address] [place] [address] Care Team Providers Care Press Operator Helper Name Role Phone Mabel Conway MD Primary Care Provider [phone] Allergies Active AllergyReactionsCriticalityNoted KmnrZhpourclRnvvkjjxeawQdqlUsw99/25/2019 Social History Tobacco UseTypesPacks/DayYears UsedDateSmoking Tobacco: Never AssessedChildcare AnswerDate BapjtssqSikhvrvulVvnypjq75/03/2019EmploymentAnswerDate Recorded IueaycjhpnNabxfjf23/03/2019Purpose - LifeAnswerDate RecordedPurpose and direction in jgytVhoatne77/11/2021CommentsUnknownSex and Gender InformationValueDate RecordedSex Assigned at BirthNot on fileLegal SexFemale 12/01/2014 12:07 PM EDTGender IdentityNot on fileSexual OrientationNot on file Plan of Treatment Health MaintenanceDue DateLast DoneCommentsDepression Cdswfulvh63/06/1974Tobacco Aiunmasfd82/06/1974Adult BMI Jylmuoyle66/06/1980Zoster (Shingles) Vaccine (1 of 2)10/02/2011Pap SmearInfluenza Ftmltba0912/27/2024DTaP,Tdap and Td Vaccines (2 - Td or Tdap)RSV ( or age 60+ yrs) (1 - 1-dose 75+ series)2036 [employer] Not on file Insurance Care Teams Team MemberRelationshipSpecialtyStart DateEnd Date Mabel Conway MD [address] [place] [address] PCP - GeneralFamily Medicine10/02/18
--- NOTE | 2025-04-19 15:34 | MR_ITS ---
[place] [id number] Patient Name: ERNA MONTANEZ MRN: [id number] date: 1960 Sex: F Assigned Patient Location: MRI Current Patient Location: MRI Accession/Order Number: [id number] Exam Date: 04/19/2025 16:00 Report Date: 04/19/2025 22:24 At the request of: GINNY BARNETT MD Procedure: MR lower leg RT wo con MRI of the right lower leg without contrast HISTORY: Lower extremity swelling. Lymph tenderness. Cellulitis. Extensive subcutaneous edematous changes of the lower portion of the left lower leg. Small skin thickening. No soft tissue fluid collection. No mass effect of the musculature. No intramuscular abnormality. The bony structures intact. MR/MR lower leg RT wo con IMPRESSION: Subcutaneous edematous changes of the lower portion of the left lower leg. Consideration for edema/cellulitis. No abscess. Impression dictated by: Hernando Cuevas M.D. 04/19/2025 10:24 PM Dictation Location: [place] Electronically authenticated by: [id number] Y Date: 04/19/2025 22:24
--- OUTSIDE RECORDS SUMMARY | 2025-04-19 15:34 | XMS_ITS | Clinical Summary ---
Author Organization [facility] Address [address] [place] [address] Care Team Providers Care Dopeman Name Role Phone Akil Trammell MD Primary Care Provider [phone] Allergies Active AllergyReactionsCriticalityNoted OausDzpyuxtnJbwyxhqghbkLtptDcp36/27/2024 Medications MedicationSigDispense QuantityRefillsLast FilledStart DateEnd DateStatus cyproheptadine (Periactin) 4 mg tablet Take 4 mg by mouth.07/11/2023ctive metoprolol succinate XL (Toprol-XL) 25 mg 24 hr tablet 25 mg.10/13/2018Active pantoprazole (ProtoNix) 40 mg EC tablet Take 40 mg by mouth.Active tiZANidine (Zanaflex) 4 mg tablet 4 mg.12/31/2018Active ferrous sulfate 325 (65 Fe) MG tablet Take 325 mg by mouth with breakfast.Active Active Problems ProblemNoted DateDiagnosed TcweNrzzrcyrcezf85/27/2024typical chest pain 01/23/2024Essential qiwyqpsmiuha35/27/2024Obstructive sleep apnea01/23/2024lass 2 obesity due to excess calories without serious comorbidity with body mass index (BMI) of 35.0 to 35.9 in adult01/23/2024 Family History Medical HistoryRelationNameCommentsNo Known ProblemsFatherNo Known Problems MotherRelationNameStatusCommentsFatherMother Social History Tobacco UseTypesPacks/DayYears UsedDateSmoking Tobacco: NeverSmokeless Tobacco: NeverAlcohol UseStandard Drinks/WeekCommentsNever0 (1 standard drink = 0.6 oz pure alcohol)CommentsUnknownSex and Gender InformationValueDate Recorded Sex Assigned at BirthNot on fileLegal ShlWnitth25/ 10:43 PM EDTGender IdentityNot on fileSexual OrientationNot on file Last Filed Vital Signs Vital SignReadingTime TakenCommentsBlood Ausvbrje522/8709 12:02 PM EDT Zsyei2624 12:02 PM EDTTemperature--Respiratory Rate--Oxygen Saturation 98%01/23/2024 12:02 PM EDTInhaled Oxygen Concentration--Oqpsol279 kg (221 lb) 01/23/2024 12:02 PM HHWFaccsn513.6 cm (5' 6 )01/23/2024 12:02 PM EDTBody Mass Index35.67001/23/2024 12:02 PM EDT Plan of Treatment Health MaintenanceDue DateLast DoneCommentsCT Ubfblrdfbxij41/06/1962Colonoscopy 2Colorectal Cancer Izlmbgfon39/06/1962FIT-DNA1961FIT1961 FOBT6719Rqywbihuutfli82/06/1962Depression Wrjeyefbd98/06/1974Pap Smear 1982Cervical Cancer Nqckqniou95/06/1992HPV/Hjzcmy8010/02/1991Mammogram 2001Zoster Vaccines (1 of 2)10/02/2011COVID-19 Vaccine ( season), 09/26/2020Influenza Vaccine (#1)2024 02/11/2007dult Lzkrfhz91HIB VaccinesAged OutNo longer eligible based on patient's [...] MemberRelationshipSpecialtyStart Date Akil Trammell MD [address] [facility] [address] [address] [facility]01/23/24
--- OUTSIDE RECORDS SUMMARY | 2025-04-19 15:34 | XMS_ITS | Clinical Summary ---
Author Organization [facility] Address [address] [place] [address] Care Team Providers Care Retail Field Supervisor Name Role Phone Akil Trammell MD Primary Care Provider [phone] Allergies Active AllergyReactionsCriticalityNoted LkunVwjgxilsTxdzhhgokwUusyBvo87/15/2024 PenicillinsHives,Rash,OgjhmlnHba93/11/2017 Medications MedicationSigDispense QuantityRefillsLast FilledStart DateEnd DateStatus tiZANidine (Zanaflex) 4 MG tablet every 6 to 8 hours07/11/2023ctive pantoprazole (ProtoNix) 40 MG EC tablet Take 40 mg by mouth 1 (one) time each day at the same timeActive metoprolol succinate XL (Toprol-XL) 25 MG 24 hr tablet 1 (one) time each day at the same timeActive cyproheptadine (Periactin) 4 MG tablet Daily at qivxswp3707/11/2023ctive Active Problems ProblemNoted DateDiagnosed CdplSjumyatc95/12/2024Family history of aneurysm 10/08/2023OSA (obstructive sleep apnea)10/08/20233128Uengmsi17/12/2024 Family History Medical HistoryRelationNameCommentsAneurysmOtherAtrial fibrillationOtherCOPD OtherCancerOtherHypertensionOtherMultiple sclerosisOtherRelationNameStatus CommentsOther Social History Tobacco UseTypesPacks/DayYears UsedDateSmoking Tobacco: Never Tobacco Cessation:Counseling Given: Not Answered Alcohol UseStandard Drinks/WeekCommentsNever0 (1 standard drink = 0.6 oz pure alcohol)does not drink caffeineCommentsUnknownSex and Gender Information ValueDate RecordedSex Assigned at BirthNot on fileLegal HsbGlkqmc52/15/2023 6:43 PM EDTGender IdentityNot on fileSexual OrientationNot on file Last Filed Vital Signs Vital SignReadingTime TakenCommentsBlood Qzsivznv433/8406 12:30 PM EDT Hwhvw414510/08/2023 12:30 PM EDTTemperature--Respiratory Qaxc589110/08/2023 12:30 PM EDTOxygen Ukbujnaffp26%10/08/2023 12:30 PM EDTInhaled Oxygen Concentration-- Beooia780 kg (258 lb)10/08/2023 12:30 PM UPOLveykj006.6 cm (5' 6 )10/08/2023 12:30 PM EDTBody Mass Index41.64010/08/2023 12:30 PM EDT Plan of Treatment Not on file Insurance [place] [address] MemberSubscriberPlan / Payer (Effective 2022-Present)Name:Monet Hannah Relation to Subscriber:SpouseName:JULIETTE HANNAH Date of :1961 Address: [facility] [place] [address] Payer ID:Not on file Type:Not on file Address: [place] [phone] Care Teams Team MemberRelationshipSpecialtyStart DateEnd Akil Trammell MD PCP - GeneralFamily Medicine08/19/23
== END 2025-04-19 15:32 | disposition home or self-care (01) ==
LOC: MRI 15:31
PROVIDERS: PCP Family Medicine; Visit Provider Family Medicine
DX: M79.604 Pain in right leg (principal); L03.119 Cellulitis of unspecified part of limb; M79.89 Other specified soft tissue disorders
CPT/HCPCS: 73718